=== PATIENT | male | born 1940 | race African-American/Black ===

== ENCOUNTER 2017-11-13 16:08 | Inpatient (IN) | payer MEDICARE ==
--- NOTE | 2017-11-13 16:50 | ED Physician Chart ---
ED Chief Complaint/HPI - Patient Information History of Present Illness:: Known psychiatric history, acute psychotic break at care facility, sent to ER for evaluation and treatment. Allergies:: Allergies Allergy/AdvReac Type Severity Reaction Status Date / Time No Known Allergies Allergy Verified 11/13/17 16:17 Historian:: EMS, Medical Records Review:: Nurse's Note Reviewed <Keo Greene - Last Filed: 11/14/17 20:40> - Patient Information Date Seen:: 11/13/17 Time Seen:: 16:50 Chief Complaint:: Agitation Allergies:: Allergies Allergy/AdvReac Type Severity Reaction Status Date / Time No Known Allergies Allergy Verified 11/13/17 16:17 Vitals:: Vital Signs - 8 hr 11/13/17 16:17 Temp 98.1 F HR 84 RR 19 BP 159/66 O2 Sat % 96 <Srinivas Boone - Last Filed: 11/14/17 22:20> ED Review of Systems - Review of Systems General/Constitutional: No edema Skin: No skin lesions Neck: No mass noted Cardio Vascular: No edema Pulmonary: No SOB GI: No vomiting Psychiatric: Prior psych history (aggressive behavior, nonverbal) Hematopoietic: Bruising, No bruising Allergic/Immuno: No urticaria <Keo Greene - Last Filed: 11/14/17 20:40> ED Past Medical History - Past Medical History Obtainable: No (History difficult to obtain, patient nonverbal at time of exam) Social History: Care Facility Psychiatricy History: Other (psyciatric illness with increased aggression, nonverbal at time of exam.) <Keo Greene - Last Filed: 11/14/17 20:40> Family Medical History - Family Member Mother History Unknown: Yes Ethnicity: Non- Living Status: Unknown Hx Family Cancer: (UNKNOWN) Hx Family Coronary Artery Disease: (UNKNOWN) Hx Family Congestive Heart Failure: (UNKNOWN) Hx Family Hypertension: (UNKNOWN) Hx Family Stroke: (UNKNOWN) Hx Family Diabetes: (UNKNOWN) Hx Family Seizures: (UNKNOWN) Hx Family Dementia: (UNKNOWN) Hx Family AIDS: (UNKNOWN) Hx Family HIV: No Hx Family COPD: (UNKNOWN) Hx Family Hepatitis: (UNKNOWN) Hx Family Psychiatric Problems: (UNKNOWN) Hx Family Tuberculosis: (UNKNOWN) <Srinivas Boone - Last Filed: 11/14/17 22:20> ED Physical Exam - Physical Examination General/Constitutional: Awake Head: Atraumatic Eyes: Lids, conjuctiva normal Skin: Nl inspection ENMT: External ears, nose nl Neck: Nontender Respiratory: Nl effort/Exclusion Cardio Vascular: RRR : No CVA tenderness Extremities: No tenderness or effusion Neuro/Psych: Alert/oriented Misc: Normal back <Keo Greene - Last Filed: 11/14/17 20:40> ED Labs/Radiology/EKG Results - Lab Results Results: Laboratory Tests 11/13/17 11/13/17 11/13/17 17:08 17:08 17:08 WBC 4.4 L RBC 4.12 Hgb 12.1 Hct 36.2 L MCV 88.1 MCH 29.5 MCHC Differential 33.4 RDW 18.7 Plt Count 272 MPV 7.1 Neutrophils % 43.3 Lymphocytes % 36.4 Monocytes % 10.9 H Eosinophils % 8.1 H Basophils % 1.3 PT INR PTT (Actin FS) Sodium 137 Potassium 3.5 Chloride 108 H Carbon Dioxide 24.0 Anion Gap 8.5 BUN 23 Creatinine 1.1 Est GFR ( Amer) TNP Est GFR (Non-Af Amer) TNP BUN/Creatinine Ratio 20.9 Glucose 98 Calcium 9.5 Total Bilirubin 0.6 AST 19 ALT 15 Alkaline Phosphatase 85 Troponin I 0.01 B-Natriuretic Peptide Total Protein 8.7 H Albumin 3.7 L Globulin 5.0 Albumin/Globulin Ratio 0.7 L 11/13/17 11/13/17 17:08 17:08 WBC RBC Hgb Hct MCV MCH MCHC Differential RDW Plt Count MPV Neutrophils % Lymphocytes % Monocytes % Eosinophils % Basophils % PT 11.1 INR 1.07 PTT (Actin FS) 25.0 L Sodium Potassium Chloride Carbon Dioxide Anion Gap BUN Creatinine Est GFR ( Amer) Est GFR (Non-Af Amer) BUN/Creatinine Ratio Glucose Calcium Total Bilirubin AST ALT Alkaline Phosphatase Troponin I B-Natriuretic Peptide 21.1 Total Protein Albumin Globulin Albumin/Globulin Ratio <Keo Greene - Last Filed: 11/14/17 20:40> - EKG Interpretations EKG Time:: 17:11 Rate & Rhythm: 82 bpm, sinus rhythm [place]: Left ventricular hypertropy Intervals: [place] 133, QRS 83 <Srinivas Boone - Last Filed: 07/28/18 22:20> ED Assessment - Assessment General Assessment: Psychotic break requiring inpatient adjustment of medication, monitoring and further treatment. <Keo Greene - Last Filed: 11/14/17 20:40> ED Septic Shock - . Is Septic Shock (SBP<90, OR Lactate>4 mmol\L) present?: No <Keo Greene - Last Filed: 11/14/17 20:40> - . Is Septic Shock (SBP<90, OR Lactate>4 mmol\L) present?: No - <6hrs of presentation: Vital Signs: Vital Signs - 8 hr 11/13/17 16:17 Temp 98.1 F HR 84 RR 19 BP 159/66 O2 Sat % 96 <Srinivas Boone - Last Filed: 11/14/17 22:20> ED Reassessment (Disposition) - Reassessment Reassessment:: Adjustment of medication needed. Reassessment Condition:: Unchanged - Diagnosis Diagnosis:: Acute psychotic break. - Patient Disposition Discharge/Transfer:: Acute Care w/in this hosp <Keo Greene - Last Filed: 11/14/17 20:40> - Patient Disposition Admitting Medical Physician:: Casey Callejas Admitting Psych Physician:: Dolly Gamez <Srinivas Boone - Last Filed: 11/14/17 22:20>
[2017-11-13 17:19] LABS: % BASOPHILS 1.3 % (0.0-2.0); % EOSINOPHILS 8.1 % (0.0-5.0); % LYMPHOCYTES 36.4 % (20.0-50.0); % MONOCYTES 10.9 % (2.0-10.0); % NEUTROPHILS 43.3 % (40.0-80.0); BASOPHILE ABSOLUTE 0.1 Th/cumm (0-0.2); EOSINOPHILE ABSOLUTE 0.4 Th/cmm (0.1-0.4); HEMATOCRIT 36.2 % (41.0-60); HEMOGLOBIN 12.1 gm/dL (12-16); LYMPHOCYTE ABSOLUTE 1.6 Th/cmm (1.5-3.0); MEAN CELL VOLUME 88.1 fl (80-99); MEAN CORPUSCULAR HEMOGLOBIN 29.5 pg (27.0-31.0); MEAN CORPUSCULAR HGB CONC 33.4 pg (28.0-36.0); MEAN PLATELET VOLUME 7.1 fl; MONOCYTE ABSOLUTE 0.5 Th/cmm (0.3-1.0); NEUTROPHILE ABSOLUTE 1.8 Th/cmm (1.8-8.0); PLATELET COUNT 272 Th/cmm (150-400); RED BLOOD COUNT 4.12 Mil/cmm (3.80-5.80); RED CELL DISTRIBUTION WIDTH 18.7 % (11.5-20.0); WHITE BLOOD COUNT 4.4 Th/cmm (4.8-10.8)
[2017-11-13 17:31] LABS: INR 1.07 (0.5-1.4); PROTHROMBIN TIME (TEST) 11.1 SECONDS (9.5-11.5)
[2017-11-13 17:33] LABS: ALB/GLOB RATIO 0.7 (1.0-1.8); ALBUMIN 3.7 gm/dL (4.2-5.5); ALKALINE PHOSPHATASE 85 U/L (34-104); ANION GAP 8.5 (7.0-16.0); BILIRUBIN,TOTAL 0.6 mg/dL (0.3-1.0); BUN - UREA NITROGEN 23 mg/dL (7-25); CALCIUM SERUM 9.5 mg/dL (8.6-10.3); CHLORIDE 108 mEq/L (98-107); CREATININE - SERUM 1.1 mg/dL (0.7-1.3); GLUCOSE 98 mg/dL (70-105); POTASSIUM SERUM 3.5 mEq/L (3.5-5.1); SGOT 19 U/L (13-39); SGPT/ALT 15 U/L (7-52); SODIUM SERUM 137 mEq/L (136-145); TOTAL PROTEIN,SERUM 8.7 gm/dL (6.0-8.3)
[2017-11-13 22:39] VITALS: BP 146/91
[2017-11-13] MEDS ORDERED: Magnesium Hydroxide (MOM) 30 mL UDC PO PRN ×2 (22:52→22:53)
[2017-11-13] MEDS ORDERED: Maalox 30 mL Cup PO PRN (22:52)
[2017-11-13] MEDS ORDERED: Acetaminophen 500 MG TAB PO PRN (22:53)
[2017-11-14] MEDS ORDERED: Non-Formulary Item 1 EA (Cranberry Fruit Extract [Cranberry] 425 MG) PO SCH (09:00)
--- NOTE | 2017-11-14 09:26 | Diagnostic Imaging Report ---
Portable chest x-ray HISTORY: Shortness of breath The overall heart size normal. Atherosclerotic calcification seen in the aorta. Slight elevation the right hemidiaphragm. A linear density is noted in the right lower lung consistent with probable scarring. IMPRESSION: 1. Linear density within the right lower lobe probably related to scarring. No other focal processes.
[2017-11-14] MEDS: Multivitamin Tab PO SCH (09:35)
[2017-11-14] MEDS: Multivitamin w/ Minerals Tab PO SCH (09:36)
[2017-11-14] MEDS: Vitamin D3 2,000 IU SGL PO SCH (09:36)
--- NOTE | 2017-11-14 14:37 | History & Physical ---
ADMIT DATE: 11/13/2017 IDENTIFYING INFORMATION: The patient is a 77-year-old male. CHIEF COMPLAINT: No answer. HISTORY OF PRESENT ILLNESS: The patient apparently was sent because of aggressive, assaultive behavior, anxiety, irritable, throwing things. He came to the [facility]. The patient himself was a poor historian. He was rambling, unable to participate in meaningful conversation or make safe plan for self-care. Unable to participate and tell me the reason why he is here, unable to tell me his age, where he is here. When asked about suicide, homicide, did not know how to answer the questions. He is unpredictable and impulsive. He seems to be demented and confused. PAST PSYCHIATRIC HISTORY: What seemed to be dementia, psychosis. MEDICAL HISTORY: Deferred to the medical doctor. ALLERGIES: No known drug allergies. FAMILY AND SOCIAL HISTORY: The patient is unobtainable. The patient lives in a nursing facility. MENTAL STATUS EXAMINATION: The patient is appropriately dressed, not very groomed. The patient was rambling and mumbling to himself, unable to participate in meaningful conversation or make safe plan for self-care, unpredictable, impulsive, was acting aggressive, irritable at the [facility] that he was, unable to make safe plan for self-care or participate in meaningful conversation long and short term poor. Insight and judgment is impaired. When answer questions regarding suicide, homicide, does not know how to answer any questions at this point because of his dementia. Insight and judgment impaired. IMPRESSION: AXIS I: Psychosis, not otherwise specified, dementia. MEDICAL DIAGNOSIS: Deferred to the medical doctor. His asset is accepting treatment. Negative poor coping skills. INITIAL TREATMENT PLAN: The patient will be observed, we will try to start him on medication for dementia. We will do group therapy, milieu therapy. ESTIMATED LENGTH OF STAY: 5-7 days. DISCHARGE CRITERIA: Decreasing agitation, no longer threatening. After discharge, outpatient treatment. JOB# [id number]
--- NOTE | 2017-11-14 15:52 | History & Physical ---
ADMIT DATE: 11/14/2017 CHIEF COMPLAINT: Agitation. HISTORY OF PRESENT ILLNESS: This is a 77-year-old male who was brought into the Emergency Room from senior living facility due to increased agitation and confusion. REVIEW OF SYSTEMS: GENERAL: This is a 77-year-old male that appears as stated. No weight loss. No weakness. HEAD: No dizziness. No headache. EYES: No eye pain, no blurring of vision. NECK: No neck pain, no nuchal rigidity. CHEST: No chest pain, no palpitation. PULMONARY: No coughing, no shortness of breath. GASTROINTESTINAL: No abdominal pain. No diarrhea. No constipation. MUSCULOSKELETAL: No joint pain, no muscle pain. SOCIAL HISTORY: The patient lives in a senior living facility prior to hospitalization. The patient has a long history of nicotine dependence. FAMILY HISTORY: Unremarkable. PAST SURGICAL HISTORY: Unremarkable. PSYCHIATRIC HISTORY: Includes psychosis. PAST MEDICAL HISTORY: Osteoarthritis, vitamin D deficiency, benign prostatic hypertrophy, osteoarthritis. PHYSICAL EXAMINATION: VITAL SIGNS: Temperature 98, heart rate 76, blood pressure 137/60, respirations 20, 98% on room air. HEENT: Head is atraumatic, normocephalic. Eyes, bilateral conjunctivae are clear. Bilateral pupils equally round and reactive. NECK: Supple. No JVD. CARDIOVASCULAR: S1 and S2, without murmur. LUNGS: Clear to auscultation. GASTROINTESTINAL: Soft and nontender without guarding. Positive bowel sounds. MUSCULOSKELETAL: No clubbing. No cyanosis noted. DIAGNOSTIC DATA: Chest x-ray showed linear density within the right lower lobe, probably to scarring. ASSESSMENT: 1. Psychosis. 2. Rule out dementia. 3. Benign prostatic hypertrophy. 4. Osteoarthritis. 5. Vitamin D deficiency. 6. History of nicotine dependence. PLAN: We will admit the patient to senior mental health unit. We will do medication reconciliation accordingly. Treatment plans were discussed with the patient's nurse. Treatment plans were discussed with Dr. Callejas. JOB# [id number]
[2017-11-15] MEDS: Multivitamin w/ Minerals Tab PO SCH (08:39)
[2017-11-15] MEDS: Multivitamin Tab PO SCH (08:39)
[2017-11-15] MEDS: Vitamin D3 2,000 IU SGL PO SCH (08:39)
--- NOTE | 2017-11-15 11:20 | General Progress Note ---
Subjective - Review of Systems Events since last encounter: patient admitted with increase agitation and confusion Objective - Results Result Diagrams: 11/13/17 17:08 11/13/17 17:08 Recent Labs: Laboratory Last Values WBC 4.4 Th/cmm (4.8-10.8) L 11/13/17 17:08 RBC 4.12 Mil/cmm (3.80-5.80) 11/13/17 17:08 Hgb 12.1 gm/dL (12-16) 11/13/17 17:08 Hct 36.2 % (41.0-60) L 11/13/17 17:08 MCV 88.1 fl (80-99) 11/13/17 17:08 MCH 29.5 pg (27.0-31.0) 11/13/17 17:08 MCHC Differential 33.4 pg (28.0-36.0) 11/13/17 17:08 RDW 18.7 % (11.5-20.0) 11/13/17 17:08 Plt Count 272 Th/cmm (150-400) 11/13/17 17:08 MPV 7.1 fl 11/13/17 17:08 Neutrophils % 43.3 % (40.0-80.0) 11/13/17 17:08 Lymphocytes % 36.4 % (20.0-50.0) 11/13/17 17:08 Monocytes % 10.9 % (2.0-10.0) H 11/13/17 17:08 Eosinophils % 8.1 % (0.0-5.0) H 11/13/17 17:08 Basophils % 1.3 % (0.0-2.0) 11/13/17 17:08 PT 11.1 SECONDS (9.5-11.5) 11/13/17 17:08 INR 1.07 (0.5-1.4) 11/13/17 17:08 PTT (Actin FS) 25.0 SECONDS (26.0-38.0) L 11/13/17 17:08 Sodium 137 mEq/L (136-145) 11/13/17 17:08 Potassium 3.5 mEq/L (3.5-5.1) 11/13/17 17:08 Chloride 108 mEq/L (98-107) H 11/13/17 17:08 Carbon Dioxide 24.0 mEq/L (21.0-31.0) 11/13/17 17:08 Anion Gap 8.5 (7.0-16.0) 11/13/17 17:08 BUN 23 mg/dL (7-25) 11/13/17 17:08 Creatinine 1.1 mg/dL (0.7-1.3) 11/13/17 17:08 Est GFR ( Amer) TNP 11/13/17 17:08 Est GFR (Non-Af Amer) TNP 11/13/17 17:08 BUN/Creatinine Ratio 20.9 11/13/17 17:08 Glucose 98 mg/dL (70-105) 11/13/17 17:08 Calcium 9.5 mg/dL (8.6-10.3) 11/13/17 17:08 Total Bilirubin 0.6 mg/dL (0.3-1.0) 11/13/17 17:08 AST 19 U/L (13-39) 11/13/17 17:08 ALT 15 U/L (7-52) 11/13/17 17:08 Alkaline Phosphatase 85 U/L (34-104) 11/13/17 17:08 Troponin I 0.01 ng/mL (0.01-0.05) 11/13/17 17:08 B-Natriuretic Peptide 21.1 pg/mL (5.0-100.0) 11/13/17 17:08 Total Protein 8.7 gm/dL (6.0-8.3) H 11/13/17 17:08 Albumin 3.7 gm/dL (4.2-5.5) L 11/13/17 17:08 Globulin 5.0 gm/dL 11/13/17 17:08 Albumin/Globulin Ratio 0.7 (1.0-1.8) L 11/13/17 17:08 - Physical Exam Vitals and I&O: Vital Signs Temp 97.5 F 11/15/17 04:49 Pulse 71 11/15/17 04:49 Resp 19 11/15/17 04:49 BP 117/72 11/15/17 04:49 Pulse Ox 97 11/15/17 04:49 Intake & Output 11/14/17 11/15/17 11/15/17 18:59 06:59 18:59 Intake Total 240 Balance 240 Weight (lbs) 65.771 kg Intake: Oral 240 Other: # Voids 2 Weight Source Standing scale Active Medications: Current Medications Acetaminophen (Tylenol) 650 mg PO Q4HR PRN PRN Reason: Mild Pain / Temp above 100 Stop: 01/12/18 22:51 Acetaminophen (Tylenol) 325 mg PO Q4HR PRN PRN Reason: PAIN OR TEMP >101 Stop: 01/12/18 22:52 Acetaminophen (Tylenol Extra Strength) 1,000 mg PO Q4HR PRN PRN Reason: MODERATE PAIN Stop: 01/12/18 22:52 Al Hydrox/Mg Hydrox/Simethicone (Maalox) 30 ml PO Q4HR PRN PRN Reason: GI DISTRESS Stop: 01/12/18 22:51 Docusate Sodium (Colace) 100 mg PO BID [facility] Stop: 01/13/18 08:59 Last Admin: 11/15/17 08:39 Dose: 100 mg Donepezil HCl (Aricept) 5 mg PO HS HELENE Stop: 01/13/18 20:59 Last Admin: 11/14/17 20:59 Dose: 5 mg Finasteride (Proscar) 5 mg PO DAILY HELENE; Protocol Stop: 01/13/18 08:59 Last Admin: 11/15/17 08:39 Dose: 5 mg Ibuprofen (Motrin) 600 mg PO Q6H PRN PRN Reason: MODERATE PAIN Stop: 01/12/18 22:52 Lorazepam (Ativan) 0.5 mg PO Q4HR PRN; Protocol PRN Reason: Anxiety Stop: 12/13/17 22:47 Last Admin: 11/14/17 20:58 Dose: 0.5 mg Magnesium Hydroxide (Milk Of Magnesia) 30 ml PO HS PRN PRN Reason: Constipation Stop: 01/12/18 22:52 Multivitamins/Vitamin C (Theragran) 1 tab PO DAILY HELENE Stop: 01/13/18 08:59 Last Admin: 11/15/17 08:39 Dose: 1 tab Tamsulosin HCl (Flomax) 0.4 mg PO DAILY HELENE Stop: 01/13/18 08:59 Last Admin: 11/15/17 08:39 Dose: 0.4 mg Vitamin D (Vitamin D3) 4,000 iu PO DAILY HELENE Stop: 01/13/18 08:59 Last Admin: 11/15/17 08:39 Dose: 4,000 iu Zolpidem Tartrate (Ambien) 5 mg PO HS PRN PRN Reason: Insomnia Stop: 01/12/18 22:59 General: Alert, no Oriented x3 HEENT: Atraumatic Neck: Supple Cardiovascular: Regular rate, Normal S1, Normal S2 Lungs: Clear to auscultation Abdomen: Bowel sounds Assessment/Plan - Problem List Patient Problems: All Active Problems BPH (benign prostatic hyperplasia) (Acute) N40.0 INCREASED AGGRESSIVE BEHAVIOR (Acute) Osteoarthritis (Acute) M19.90 Psychosis (Acute) F29 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
--- NOTE | 2017-11-15 21:38 | Progress Notes ---
DATE: 11/15/2017 Case was discussed with staff of the patient, reviewed records. The patient continues to be confused, irritable, rambling speech, unable to participate in meaningful conversation or make safe plan for self-care. I initiated him on Aricept yesterday. He is unpredictable, impulsive and he has been with very poor insight. No side effects with the medication, no sedation, and no nausea. His lab work showed low white cell count, low hematocrit, high monocyte, and high eosinophil, the rest within normal range. His chemistry panel with high chloride, high total protein, and low albumin. We will continue the patient in group therapy, milieu therapy, and adjust the medication as needed. JOB# [id number]
[2017-11-16] MEDS: Vitamin D3 2,000 IU SGL PO SCH (09:11)
[2017-11-16] MEDS: Multivitamin w/ Minerals Tab PO SCH (09:13)
[2017-11-16] MEDS: Multivitamin Tab PO SCH (09:13)
[2017-11-17] MEDS: Multivitamin w/ Minerals Tab PO SCH (08:47)
[2017-11-17] MEDS: Multivitamin Tab PO SCH (08:47)
[2017-11-17] MEDS: Vitamin D3 2,000 IU SGL PO SCH (08:47)
--- NOTE | 2017-11-17 12:53 | Internal Medicine Prog Note ---
Internal Medicine Subjective - Subjective Service Date: 11/17/17 Patient seen and examined:: with staff Patient is:: awake, verbal Per staff patient has:: tolerating meds Internal Medicine Objective - Results Result Diagrams: 11/13/17 17:08 11/13/17 17:08 Recent Labs: Laboratory Last Values WBC 4.4 Th/cmm (4.8-10.8) L 11/13/17 17:08 RBC 4.12 Mil/cmm (3.80-5.80) 11/13/17 17:08 Hgb 12.1 gm/dL (12-16) 11/13/17 17:08 Hct 36.2 % (41.0-60) L 11/13/17 17:08 MCV 88.1 fl (80-99) 11/13/17 17:08 MCH 29.5 pg (27.0-31.0) 11/13/17 17:08 MCHC Differential 33.4 pg (28.0-36.0) 11/13/17 17:08 RDW 18.7 % (11.5-20.0) 11/13/17 17:08 Plt Count 272 Th/cmm (150-400) 11/13/17 17:08 MPV 7.1 fl 11/13/17 17:08 Neutrophils % 43.3 % (40.0-80.0) 11/13/17 17:08 Lymphocytes % 36.4 % (20.0-50.0) 11/13/17 17:08 Monocytes % 10.9 % (2.0-10.0) H 11/13/17 17:08 Eosinophils % 8.1 % (0.0-5.0) H 11/13/17 17:08 Basophils % 1.3 % (0.0-2.0) 11/13/17 17:08 PT 11.1 SECONDS (9.5-11.5) 11/13/17 17:08 INR 1.07 (0.5-1.4) 11/13/17 17:08 PTT (Actin FS) 25.0 SECONDS (26.0-38.0) L 11/13/17 17:08 Sodium 137 mEq/L (136-145) 11/13/17 17:08 Potassium 3.5 mEq/L (3.5-5.1) 11/13/17 17:08 Chloride 108 mEq/L (98-107) H 11/13/17 17:08 Carbon Dioxide 24.0 mEq/L (21.0-31.0) 11/13/17 17:08 Anion Gap 8.5 (7.0-16.0) 11/13/17 17:08 BUN 23 mg/dL (7-25) 11/13/17 17:08 Creatinine 1.1 mg/dL (0.7-1.3) 11/13/17 17:08 Est GFR ( Amer) TNP 11/13/17 17:08 Est GFR (Non-Af Amer) TNP 11/13/17 17:08 BUN/Creatinine Ratio 20.9 11/13/17 17:08 Glucose 98 mg/dL (70-105) 11/13/17 17:08 POC Glucose 112 MG/DL (70 - 105) H 11/16/17 23:52 Calcium 9.5 mg/dL (8.6-10.3) 11/13/17 17:08 Total Bilirubin 0.6 mg/dL (0.3-1.0) 11/13/17 17:08 AST 19 U/L (13-39) 11/13/17 17:08 ALT 15 U/L (7-52) 11/13/17 17:08 Alkaline Phosphatase 85 U/L (34-104) 11/13/17 17:08 Troponin I 0.01 ng/mL (0.01-0.05) 11/13/17 17:08 B-Natriuretic Peptide 21.1 pg/mL (5.0-100.0) 11/13/17 17:08 Total Protein 8.7 gm/dL (6.0-8.3) H 11/13/17 17:08 Albumin 3.7 gm/dL (4.2-5.5) L 11/13/17 17:08 Globulin 5.0 gm/dL 11/13/17 17:08 Albumin/Globulin Ratio 0.7 (1.0-1.8) L 11/13/17 17:08 - Physical Exam Vitals and I&O: Vital Signs Temp 97.4 F 11/17/17 05:50 Pulse 65 11/17/17 05:50 Resp 20 11/17/17 05:50 BP 116/68 11/17/17 05:50 Pulse Ox 100 11/17/17 05:50 Active Medications: Current Medications Acetaminophen (Tylenol) 650 mg PO Q4HR PRN PRN Reason: Mild Pain / Temp above 100 Stop: 01/12/18 22:51 Acetaminophen (Tylenol) 325 mg PO Q4HR PRN PRN Reason: PAIN OR TEMP >101 Stop: 01/12/18 22:52 Acetaminophen (Tylenol Extra Strength) 1,000 mg PO Q4HR PRN PRN Reason: MODERATE PAIN Stop: 01/12/18 22:52 Al Hydrox/Mg Hydrox/Simethicone (Maalox) 30 ml PO Q4HR PRN PRN Reason: GI DISTRESS Stop: 01/12/18 22:51 Docusate Sodium (Colace) 100 mg PO BID HELENE Stop: 01/13/18 08:59 Last Admin: 11/17/17 08:47 Dose: 100 mg Donepezil HCl (Aricept) 5 mg PO HS HELENE Stop: 01/13/18 20:59 Last Admin: 11/16/17 21:02 Dose: 5 mg Finasteride (Proscar) 5 mg PO DAILY HELENE; Protocol Stop: 01/13/18 08:59 Last Admin: 11/17/17 08:47 Dose: 5 mg Ibuprofen (Motrin) 600 mg PO Q6H PRN PRN Reason: MODERATE PAIN Stop: 01/12/18 22:52 Lorazepam (Ativan) 0.5 mg PO Q4HR PRN; Protocol PRN Reason: Anxiety Stop: 12/13/17 22:47 Last Admin: 11/16/17 20:57 Dose: 0.5 mg Magnesium Hydroxide (Milk Of Magnesia) 30 ml PO HS PRN PRN Reason: Constipation Stop: 01/12/18 22:52 Multivitamins/Vitamin C (Theragran) 1 tab PO DAILY HELENE Stop: 01/13/18 08:59 Last Admin: 11/17/17 08:47 Dose: 1 tab Risperidone (Risperdal) 0.25 mg PO HS HELENE; Protocol Stop: 01/15/18 20:59 Last Admin: 11/16/17 20:56 Dose: 0.25 mg Tamsulosin HCl (Flomax) 0.4 mg PO DAILY HELENE Stop: 01/13/18 08:59 Last Admin: 11/17/17 08:47 Dose: 0.4 mg Vitamin D (Vitamin D3) 4,000 iu PO DAILY HELENE Stop: 01/13/18 08:59 Last Admin: 11/17/17 08:47 Dose: 4,000 iu Zolpidem Tartrate (Ambien) 5 mg PO HS PRN PRN Reason: Insomnia Stop: 01/12/18 22:59 Last Admin: 11/16/17 20:57 Dose: 5 mg General: alert HEENT: NC/AT, PERRLA Neck: Supple Lungs: CTAB Cardiovascular: RRR, Normal S1, Normal S2, without murmur Abdomen: soft, non-tender, non-distended, positive bowel sound Neurological: alert Internal Medicine Assmt/Plan - Assessment Assessment: BPH (benign prostatic hyperplasia) (Acute) N40.0 INCREASED AGGRESSIVE BEHAVIOR (Acute) Osteoarthritis (Acute) M19.90 Psychosis (Acute) F29 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
--- NOTE | 2017-11-18 00:04 | Progress Notes ---
DATE: 11/17/2017 SUBJECTIVE: Chart reviewed and the patient interviewed. Also discussed the patient's condition with the staff and reviewed records and labs. The patient remains confused and disoriented. The patient also is still preoccupied. The patient also is easily agitated. He also still has periods of anger and mood swings. Otherwise, the patient compliant with taking medications with no side effects. ASSESSMENT: The patient is still agitated and needs close followup. ADDENDUM TREATMENT PLAN: We will continue monitoring his behavior and his condition closely. Also, blood pressure dropped and continue to monitor blood pressure and continue to ____ poor impulse and ineffective coping. JOB# [id number]
[2017-11-18] MEDS: Vitamin D3 2,000 IU SGL PO SCH (09:12)
[2017-11-18] MEDS: Multivitamin Tab PO SCH (09:12)
[2017-11-18] MEDS: Multivitamin w/ Minerals Tab PO SCH (09:13)
--- NOTE | 2017-11-18 11:58 | General Progress Note ---
Subjective - Review of Systems Events since last encounter: patient still irritable confused denies pain Objective - Results Result Diagrams: 11/13/17 17:08 11/13/17 17:08 Recent Labs: Laboratory Last Values WBC 4.4 Th/cmm (4.8-10.8) L 11/13/17 17:08 RBC 4.12 Mil/cmm (3.80-5.80) 11/13/17 17:08 Hgb 12.1 gm/dL (12-16) 11/13/17 17:08 Hct 36.2 % (41.0-60) L 11/13/17 17:08 MCV 88.1 fl (80-99) 11/13/17 17:08 MCH 29.5 pg (27.0-31.0) 11/13/17 17:08 MCHC Differential 33.4 pg (28.0-36.0) 11/13/17 17:08 RDW 18.7 % (11.5-20.0) 11/13/17 17:08 Plt Count 272 Th/cmm (150-400) 11/13/17 17:08 MPV 7.1 fl 11/13/17 17:08 Neutrophils % 43.3 % (40.0-80.0) 11/13/17 17:08 Lymphocytes % 36.4 % (20.0-50.0) 11/13/17 17:08 Monocytes % 10.9 % (2.0-10.0) H 11/13/17 17:08 Eosinophils % 8.1 % (0.0-5.0) H 11/13/17 17:08 Basophils % 1.3 % (0.0-2.0) 11/13/17 17:08 PT 11.1 SECONDS (9.5-11.5) 11/13/17 17:08 INR 1.07 (0.5-1.4) 11/13/17 17:08 PTT (Actin FS) 25.0 SECONDS (26.0-38.0) L 11/13/17 17:08 Sodium 137 mEq/L (136-145) 11/13/17 17:08 Potassium 3.5 mEq/L (3.5-5.1) 11/13/17 17:08 Chloride 108 mEq/L (98-107) H 11/13/17 17:08 Carbon Dioxide 24.0 mEq/L (21.0-31.0) 11/13/17 17:08 Anion Gap 8.5 (7.0-16.0) 11/13/17 17:08 BUN 23 mg/dL (7-25) 11/13/17 17:08 Creatinine 1.1 mg/dL (0.7-1.3) 11/13/17 17:08 Est GFR ( Amer) TNP 11/13/17 17:08 Est GFR (Non-Af Amer) TNP 11/13/17 17:08 BUN/Creatinine Ratio 20.9 11/13/17 17:08 Glucose 98 mg/dL (70-105) 11/13/17 17:08 POC Glucose 112 MG/DL (70 - 105) H 11/16/17 23:52 Calcium 9.5 mg/dL (8.6-10.3) 11/13/17 17:08 Total Bilirubin 0.6 mg/dL (0.3-1.0) 11/13/17 17:08 AST 19 U/L (13-39) 11/13/17 17:08 ALT 15 U/L (7-52) 11/13/17 17:08 Alkaline Phosphatase 85 U/L (34-104) 11/13/17 17:08 Troponin I 0.01 ng/mL (0.01-0.05) 11/13/17 17:08 B-Natriuretic Peptide 21.1 pg/mL (5.0-100.0) 11/13/17 17:08 Total Protein 8.7 gm/dL (6.0-8.3) H 11/13/17 17:08 Albumin 3.7 gm/dL (4.2-5.5) L 11/13/17 17:08 Globulin 5.0 gm/dL 11/13/17 17:08 Albumin/Globulin Ratio 0.7 (1.0-1.8) L 11/13/17 17:08 - Physical Exam Vitals and I&O: Vital Signs Temp 97.5 F 11/18/17 07:48 Pulse 84 11/18/17 07:48 Resp 20 11/18/17 07:48 BP 125/79 11/18/17 07:48 Pulse Ox 100 11/18/17 07:48 Intake & Output 11/17/17 11/18/17 11/18/17 18:59 06:59 18:59 Weight (lbs) 65.771 kg Other: Weight Source Estimated Active Medications: Current Medications Acetaminophen (Tylenol) 650 mg PO Q4HR PRN PRN Reason: Mild Pain / Temp above 100 Stop: 01/12/18 22:51 Acetaminophen (Tylenol) 325 mg PO Q4HR PRN PRN Reason: PAIN OR TEMP >101 Stop: 01/12/18 22:52 Acetaminophen (Tylenol Extra Strength) 1,000 mg PO Q4HR PRN PRN Reason: MODERATE PAIN Stop: 01/12/18 22:52 Al Hydrox/Mg Hydrox/Simethicone (Maalox) 30 ml PO Q4HR PRN PRN Reason: GI DISTRESS Stop: 01/12/18 22:51 Docusate Sodium (Colace) 100 mg PO BID HELENE Stop: 01/13/18 08:59 Last Admin: 11/18/17 09:13 Dose: 100 mg Donepezil HCl (Aricept) 5 mg PO HS HELENE Stop: 01/13/18 20:59 Last Admin: 11/17/17 21:39 Dose: 5 mg Finasteride (Proscar) 5 mg PO DAILY HELENE; Protocol Stop: 01/13/18 08:59 Last Admin: 11/18/17 09:13 Dose: 5 mg Ibuprofen (Motrin) 600 mg PO Q6H PRN PRN Reason: MODERATE PAIN Stop: 01/12/18 22:52 Lorazepam (Ativan) 0.5 mg PO Q4HR PRN; Protocol PRN Reason: Anxiety Stop: 12/13/17 22:47 Last Admin: 11/16/17 20:57 Dose: 0.5 mg Magnesium Hydroxide (Milk Of Magnesia) 30 ml PO HS PRN PRN Reason: Constipation Stop: 01/12/18 22:52 Multivitamins/Vitamin C (Theragran) 1 tab PO DAILY [facility]ENE Stop: 01/13/18 08:59 Last Admin: 11/18/17 09:12 Dose: 1 tab Risperidone (Risperdal) 0.25 mg PO HS HELENE; Protocol Stop: 01/15/18 20:59 Last Admin: 11/17/17 21:39 Dose: 0.25 mg Tamsulosin HCl (Flomax) 0.4 mg PO DAILY [facility] Stop: 01/13/18 08:59 Last Admin: 11/18/17 09:12 Dose: 0.4 mg Vitamin D (Vitamin D3) 4,000 iu PO DAILY [facility]ENE Stop: 01/13/18 08:59 Last Admin: 11/18/17 09:12 Dose: 4,000 iu Zolpidem Tartrate (Ambien) 5 mg PO HS PRN PRN Reason: Insomnia Stop: 01/12/18 22:59 Last Admin: 11/16/17 20:57 Dose: 5 mg General: Alert, no Oriented x3 HEENT: Atraumatic Neck: Supple Cardiovascular: Regular rate, Normal S1, Normal S2 Lungs: Clear to auscultation Abdomen: Bowel sounds Assessment/Plan - Problem List Patient Problems: All Active Problems BPH (benign prostatic hyperplasia) (Acute) N40.0 INCREASED AGGRESSIVE BEHAVIOR (Acute) Osteoarthritis (Acute) M19.90 Psychosis (Acute) F29 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
--- NOTE | 2017-11-18 22:25 | Progress Notes ---
DATE: 11/16/2017 SUBJECTIVE: Chart reviewed and the patient interviewed. Also discussed the patient's condition with the staff and reviewed records and labs. The patient still seems to be preoccupied and is still easily agitated and confused. He also is still delusional. The patient also is complaining of left-sided weakness. He said that he has difficulty getting out of bed, but he is also trying to get off bed with no assistance. The patient also is still confused and needs a lot of assistance. On the other hand, the patient continued to take Ativan and Aricept with no side effects. ASSESSMENT: The patient is still confused and still needs lots of redirections. TREATMENT PLAN: Continue to monitor behavior and condition closely. Also, continue adjusting psychotropic medications and follow up closely. JOB# [id number]
[2017-11-19] MEDS: Multivitamin Tab PO SCH (09:42)
[2017-11-19] MEDS: Vitamin D3 2,000 IU SGL PO SCH (09:42)
[2017-11-19] MEDS: Multivitamin w/ Minerals Tab PO SCH (09:42)
[2017-11-20] MEDS: Vitamin D3 2,000 IU SGL PO SCH (10:10)
[2017-11-20] MEDS: Multivitamin Tab PO SCH (10:11)
[2017-11-20] MEDS: Multivitamin w/ Minerals Tab PO SCH (10:11)
--- NOTE | 2017-11-20 11:14 | Internal Medicine Prog Note ---
Internal Medicine Subjective - Subjective Service Date: 11/20/17 Patient is:: awake, verbal Per staff patient has:: tolerating meds Internal Medicine Objective - Results Result Diagrams: 11/13/17 17:08 11/13/17 17:08 Recent Labs: Laboratory Last Values WBC 4.4 Th/cmm (4.8-10.8) L 11/13/17 17:08 RBC 4.12 Mil/cmm (3.80-5.80) 11/13/17 17:08 Hgb 12.1 gm/dL (12-16) 11/13/17 17:08 Hct 36.2 % (41.0-60) L 11/13/17 17:08 MCV 88.1 fl (80-99) 11/13/17 17:08 MCH 29.5 pg (27.0-31.0) 11/13/17 17:08 MCHC Differential 33.4 pg (28.0-36.0) 11/13/17 17:08 RDW 18.7 % (11.5-20.0) 11/13/17 17:08 Plt Count 272 Th/cmm (150-400) 11/13/17 17:08 MPV 7.1 fl 11/13/17 17:08 Neutrophils % 43.3 % (40.0-80.0) 11/13/17 17:08 Lymphocytes % 36.4 % (20.0-50.0) 11/13/17 17:08 Monocytes % 10.9 % (2.0-10.0) H 11/13/17 17:08 Eosinophils % 8.1 % (0.0-5.0) H 11/13/17 17:08 Basophils % 1.3 % (0.0-2.0) 11/13/17 17:08 PT 11.1 SECONDS (9.5-11.5) 11/13/17 17:08 INR 1.07 (0.5-1.4) 11/13/17 17:08 PTT (Actin FS) 25.0 SECONDS (26.0-38.0) L 11/13/17 17:08 Sodium 137 mEq/L (136-145) 11/13/17 17:08 Potassium 3.5 mEq/L (3.5-5.1) 11/13/17 17:08 Chloride 108 mEq/L (98-107) H 11/13/17 17:08 Carbon Dioxide 24.0 mEq/L (21.0-31.0) 11/13/17 17:08 Anion Gap 8.5 (7.0-16.0) 11/13/17 17:08 BUN 23 mg/dL (7-25) 11/13/17 17:08 Creatinine 1.1 mg/dL (0.7-1.3) 11/13/17 17:08 Est GFR ( Amer) TNP 11/13/17 17:08 Est GFR (Non-Af Amer) TNP 11/13/17 17:08 BUN/Creatinine Ratio 20.9 11/13/17 17:08 Glucose 98 mg/dL (70-105) 11/13/17 17:08 POC Glucose 112 MG/DL (70 - 105) H 11/16/17 23:52 Calcium 9.5 mg/dL (8.6-10.3) 11/13/17 17:08 Total Bilirubin 0.6 mg/dL (0.3-1.0) 11/13/17 17:08 AST 19 U/L (13-39) 11/13/17 17:08 ALT 15 U/L (7-52) 11/13/17 17:08 Alkaline Phosphatase 85 U/L (34-104) 11/13/17 17:08 Troponin I 0.01 ng/mL (0.01-0.05) 11/13/17 17:08 B-Natriuretic Peptide 21.1 pg/mL (5.0-100.0) 11/13/17 17:08 Total Protein 8.7 gm/dL (6.0-8.3) H 11/13/17 17:08 Albumin 3.7 gm/dL (4.2-5.5) L 11/13/17 17:08 Globulin 5.0 gm/dL 11/13/17 17:08 Albumin/Globulin Ratio 0.7 (1.0-1.8) L 11/13/17 17:08 - Physical Exam Vitals and I&O: Vital Signs Temp 97.2 F 11/20/17 06:51 Pulse 74 11/20/17 06:51 Resp 19 11/20/17 06:51 BP 116/78 11/20/17 06:51 Pulse Ox 100 11/20/17 06:51 Intake & Output 11/19/17 11/20/17 11/20/17 18:59 06:59 18:59 Intake Total 1350 Balance 1350 Weight (lbs) 144 lb 155 lb Intake: Oral 1350 Other: # Voids 3 # Bowel Movements 0 Weight Source Estimated Estimated Active Medications: Current Medications Acetaminophen (Tylenol) 650 mg PO Q4HR PRN PRN Reason: Mild Pain / Temp above 100 Stop: 01/12/18 22:51 Acetaminophen (Tylenol) 325 mg PO Q4HR PRN PRN Reason: PAIN OR TEMP >101 Stop: 01/12/18 22:52 Acetaminophen (Tylenol Extra Strength) 1,000 mg PO Q4HR PRN PRN Reason: MODERATE PAIN Stop: 01/12/18 22:52 Al Hydrox/Mg Hydrox/Simethicone (Maalox) 30 ml PO Q4HR PRN PRN Reason: GI DISTRESS Stop: 01/12/18 22:51 Docusate Sodium (Colace) 100 mg PO BID HELENE Stop: 01/13/18 08:59 Last Admin: 11/20/17 10:11 Dose: 100 mg Donepezil HCl (Aricept) 5 mg PO HS HELENE Stop: 01/13/18 20:59 Last Admin: 11/19/17 21:15 Dose: 5 mg Finasteride (Proscar) 5 mg PO DAILY [facility]; Protocol Stop: 01/13/18 08:59 Last Admin: 11/20/17 10:04 Dose: 5 mg Ibuprofen (Motrin) 600 mg PO Q6H PRN PRN Reason: MODERATE PAIN Stop: 01/12/18 22:52 Lorazepam (Ativan) 0.5 mg PO Q4HR PRN; Protocol PRN Reason: Anxiety Stop: 12/13/17 22:47 Last Admin: 11/18/17 20:31 Dose: 0.5 mg Magnesium Hydroxide (Milk Of Magnesia) 30 ml PO HS PRN PRN Reason: Constipation Stop: 01/12/18 22:52 Multivitamins/Vitamin C (Theragran) 1 tab PO DAILY [facility] Stop: 01/13/18 08:59 Last Admin: 11/20/17 10:11 Dose: 1 tab Risperidone (Risperdal) 0.25 mg PO HS HELENE; Protocol Stop: 01/15/18 20:59 Last Admin: 11/19/17 21:15 Dose: 0.25 mg Tamsulosin HCl (Flomax) 0.4 mg PO DAILY [facility] Stop: 01/13/18 08:59 Last Admin: 11/20/17 10:11 Dose: 0.4 mg Vitamin D (Vitamin D3) 4,000 iu PO DAILY [facility] Stop: 01/13/18 08:59 Last Admin: 11/20/17 10:10 Dose: 4,000 iu Zolpidem Tartrate (Ambien) 5 mg PO HS PRN PRN Reason: Insomnia Stop: 01/12/18 22:59 Last Admin: 11/16/17 20:57 Dose: 5 mg General: alert HEENT: NC/AT, PERRLA Neck: Supple Lungs: CTAB Cardiovascular: RRR, Normal S1, Normal S2, without murmur Abdomen: soft, non-tender, non-distended, positive bowel sound Neurological: alert Internal Medicine Assmt/Plan - Assessment Assessment: BPH (benign prostatic hyperplasia) (Acute) N40.0 INCREASED AGGRESSIVE BEHAVIOR (Acute) Osteoarthritis (Acute) M19.90 Psychosis (Acute) F29 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
--- NOTE | 2017-11-21 09:59 | Progress Notes ---
DATE: 11/18/2017 DATE: 11/18/2017 SUBJECTIVE: Chart reviewed and the patient interviewed. Also discussed the patient's condition with the staff and reviewed records and labs. The patient is still agitated and is still in irritable moods. He also is still restless and he still needs lots of redirections. Also, during interview, the patient seems to be preoccupied and responding. Otherwise, the patient is compliant with taking his medications with no side effects of medications and it seems that his blood pressure has been more stable today. ASSESSMENT: The patient is still confused. TREATMENT PLAN: Continue to monitor behavior and continue to work on his discharge plans. JOB# [id number]
[2017-11-21] MEDS: Vitamin D3 2,000 IU SGL PO SCH (13:25)
[2017-11-21] MEDS: Multivitamin Tab PO SCH (13:26)
[2017-11-21] MEDS: Multivitamin w/ Minerals Tab PO SCH (13:26)
--- NOTE | 2017-11-21 19:56 | Progress Notes ---
DATE: SUBJECTIVE: Chart reviewed and the patient interviewed. Also discussed the patient's condition with the staff and reviewed records and labs. The patient is still confused. Also, oriented to self. The patient also is guarded and he still has episodes of anger and irritability. The patient also is still argumentative, hyperverbal, and restless. Otherwise, the patient is compliant with taking his medications with no side effects of Risperdal and Aricept. [facility]# [id number]
--- NOTE | 2017-11-21 20:01 | Progress Notes ---
DATE: 11/19/2017 SUBJECTIVE: Chart reviewed and the patient interviewed. Also discussed the patient's condition with the staff and reviewed records and labs. The patient is still confused and anxious. The patient also is restless and is hyperverbal. The patient also is withdrawn. Also is still easily agitated. He told me "I wanted to see my mother." He also is still restless. Otherwise, the patient is compliant with taking his medications with no side effects of medications. ASSESSMENT: The patient is still confused and psychotic. TREATMENT PLAN: Continue monitoring his behavior and his condition closely. Also, continue Risperdal in a dose of 0.25 mg at bedtime and Aricept 5 mg every day and we will continue to follow up closely. [facility]# [id number]
--- NOTE | 2017-11-21 23:45 | Progress Notes ---
DATE: 11/21/2017 SUBJECTIVE: The patient was seen in his room. The patient is asleep but easily arousable. The patient appears to be confused, poor historian. Otherwise, the patient is in no acute distress. OBJECTIVE: VITAL SIGNS: Temperature 99.7, heart rate of 89, blood pressure 141/88, respirations 20, and 97% on room air. HEENT: Head is atraumatic and normocephalic. Eyes: Bilateral conjunctivae are clear. Bilateral pupils are equally round and reactive. NECK: Supple. No JVD. CARDIOVASCULAR: S1 and S2, without murmur. PULMONARY: Clear to auscultation. GASTROINTESTINAL: Soft and nontender without guarding. Positive bowel sounds. MUSCULOSKELETAL: No clubbing. No cyanosis noted. ASSESSMENT: 1. Psychosis. 2. Benign prostatic hypertrophy. 3. Osteoarthritis. 4. Vitamin D deficiency. 5. Dementia. PLAN: We will continue to have the patient inpatient to [facility] and will follow up with a psychiatrist and with the patient's condition and behavior. Treatment plans were discussed with the patient's nurse. Treatment plans were discussed with Dr. Callejas. JOB# [id number]
[2017-11-22] MEDS: Vitamin D3 2,000 IU SGL PO SCH (09:13)
[2017-11-22] MEDS: Multivitamin w/ Minerals Tab PO SCH (09:14)
[2017-11-22] MEDS: Multivitamin Tab PO SCH (09:14)
[2017-11-23] MEDS: Multivitamin w/ Minerals Tab PO SCH (09:46)
[2017-11-23] MEDS: Multivitamin Tab PO SCH (09:46)
[2017-11-23] MEDS: Vitamin D3 2,000 IU SGL PO SCH (09:46)
--- NOTE | 2017-11-23 12:43 | Progress Notes ---
DATE: 11/21/2017 SUBJECTIVE: Chart reviewed and the patient interviewed. Also, discussed the patient's condition with the staff and reviewed records and labs. The patient is still actively hallucinating and the patient is talking to himself. Also, is suspicious and paranoid and restless. The patient also still needs lots of redirections. He also is still interacting minimally with others. Otherwise, the patient is compliant with taking his medications with no side effects of medications. ASSESSMENT: The patient is still psychotic and needs close monitoring. TREATMENT PLAN: Continue Risperdal 0.25 mg at bedtime and Aricept 5 mg every day and continue to work on behavioral modification and adjusting psychotropic medications. JOB# [id number]
--- NOTE | 2017-11-23 15:54 | General Progress Note ---
Subjective - Review of Systems Events since last encounter: patient still confused awake in no acute distress Objective - Results Result Diagrams: 11/13/17 17:08 11/13/17 17:08 Recent Labs: Laboratory Last Values WBC 4.4 Th/cmm (4.8-10.8) L 11/13/17 17:08 RBC 4.12 Mil/cmm (3.80-5.80) 11/13/17 17:08 Hgb 12.1 gm/dL (12-16) 11/13/17 17:08 Hct 36.2 % (41.0-60) L 11/13/17 17:08 MCV 88.1 fl (80-99) 11/13/17 17:08 MCH 29.5 pg (27.0-31.0) 11/13/17 17:08 MCHC Differential 33.4 pg (28.0-36.0) 11/13/17 17:08 RDW 18.7 % (11.5-20.0) 11/13/17 17:08 Plt Count 272 Th/cmm (150-400) 11/13/17 17:08 MPV 7.1 fl 11/13/17 17:08 Neutrophils % 43.3 % (40.0-80.0) 11/13/17 17:08 Lymphocytes % 36.4 % (20.0-50.0) 11/13/17 17:08 Monocytes % 10.9 % (2.0-10.0) H 11/13/17 17:08 Eosinophils % 8.1 % (0.0-5.0) H 11/13/17 17:08 Basophils % 1.3 % (0.0-2.0) 11/13/17 17:08 PT 11.1 SECONDS (9.5-11.5) 11/13/17 17:08 INR 1.07 (0.5-1.4) 11/13/17 17:08 PTT (Actin FS) 25.0 SECONDS (26.0-38.0) L 11/13/17 17:08 Sodium 137 mEq/L (136-145) 11/13/17 17:08 Potassium 3.5 mEq/L (3.5-5.1) 11/13/17 17:08 Chloride 108 mEq/L (98-107) H 11/13/17 17:08 Carbon Dioxide 24.0 mEq/L (21.0-31.0) 11/13/17 17:08 Anion Gap 8.5 (7.0-16.0) 11/13/17 17:08 BUN 23 mg/dL (7-25) 11/13/17 17:08 Creatinine 1.1 mg/dL (0.7-1.3) 11/13/17 17:08 Est GFR ( Amer) TNP 11/13/17 17:08 Est GFR (Non-Af Amer) TNP 11/13/17 17:08 BUN/Creatinine Ratio 20.9 11/13/17 17:08 Glucose 98 mg/dL (70-105) 11/13/17 17:08 POC Glucose 112 MG/DL (70 - 105) H 11/16/17 23:52 Calcium 9.5 mg/dL (8.6-10.3) 11/13/17 17:08 Total Bilirubin 0.6 mg/dL (0.3-1.0) 11/13/17 17:08 AST 19 U/L (13-39) 11/13/17 17:08 ALT 15 U/L (7-52) 11/13/17 17:08 Alkaline Phosphatase 85 U/L (34-104) 11/13/17 17:08 Troponin I 0.01 ng/mL (0.01-0.05) 11/13/17 17:08 B-Natriuretic Peptide 21.1 pg/mL (5.0-100.0) 11/13/17 17:08 Total Protein 8.7 gm/dL (6.0-8.3) H 11/13/17 17:08 Albumin 3.7 gm/dL (4.2-5.5) L 11/13/17 17:08 Globulin 5.0 gm/dL 11/13/17 17:08 Albumin/Globulin Ratio 0.7 (1.0-1.8) L 11/13/17 17:08 - Physical Exam Vitals and I&O: Vital Signs Temp 98 F 11/23/17 15:07 Pulse 76 11/23/17 15:07 Resp 20 11/23/17 15:07 BP 119/69 11/23/17 15:07 Pulse Ox 97 11/23/17 15:07 Intake & Output 11/22/17 11/23/17 11/23/17 18:59 06:59 18:59 Intake Total 1500 Output Total 500 Balance 1000 Weight (lbs) 64.41 kg Intake: Oral 1500 Output: Urine 500 Other: # Voids 3 # Bowel Movements 0 Weight Source Estimated Active Medications: Current Medications Acetaminophen (Tylenol) 650 mg PO Q4HR PRN PRN Reason: Mild Pain / Temp above 100 Stop: 01/12/18 22:51 Acetaminophen (Tylenol) 325 mg PO Q4HR PRN PRN Reason: PAIN OR TEMP >101 Stop: 01/12/18 22:52 Acetaminophen (Tylenol Extra Strength) 1,000 mg PO Q4HR PRN PRN Reason: MODERATE PAIN Stop: 01/12/18 22:52 Al Hydrox/Mg Hydrox/Simethicone (Maalox) 30 ml PO Q4HR PRN PRN Reason: GI DISTRESS Stop: 01/12/18 22:51 Docusate Sodium (Colace) 100 mg PO BID HELENE Stop: 01/13/18 08:59 Last Admin: 11/23/17 09:46 Dose: 100 mg Donepezil HCl (Aricept) 5 mg PO HS [facility]ENE Stop: 01/13/18 20:59 Last Admin: 11/22/17 21:02 Dose: 5 mg Finasteride (Proscar) 5 mg PO DAILY [facility]; Protocol Stop: 01/13/18 08:59 Last Admin: 11/23/17 09:46 Dose: 5 mg Ibuprofen (Motrin) 600 mg PO Q6H PRN PRN Reason: MODERATE PAIN Stop: 01/12/18 22:52 Lorazepam (Ativan) 0.5 mg PO Q4HR PRN; Protocol PRN Reason: Anxiety Stop: 12/13/17 22:47 Last Admin: 11/22/17 21:02 Dose: 0.5 mg Magnesium Hydroxide (Milk Of Magnesia) 30 ml PO HS PRN PRN Reason: Constipation Stop: 01/12/18 22:52 Multivitamins/Vitamin C (Theragran) 1 tab PO DAILY [facility] Stop: 01/13/18 08:59 Last Admin: 11/23/17 09:46 Dose: 1 tab Risperidone (Risperdal) 0.25 mg PO HS HELENE; Protocol Stop: 01/15/18 20:59 Last Admin: 11/22/17 21:02 Dose: 0.25 mg Tamsulosin HCl (Flomax) 0.4 mg PO DAILY [facility] Stop: 01/13/18 08:59 Last Admin: 11/23/17 09:46 Dose: 0.4 mg Vitamin D (Vitamin D3) 4,000 iu PO DAILY [facility] Stop: 01/13/18 08:59 Last Admin: 11/23/17 09:46 Dose: 4,000 iu Zolpidem Tartrate (Ambien) 5 mg PO HS PRN PRN Reason: Insomnia Stop: 01/12/18 22:59 Last Admin: 11/22/17 23:30 Dose: 5 mg General: Alert, no Oriented x3 HEENT: Atraumatic Neck: Supple Cardiovascular: Regular rate, Normal S1, Normal S2 Lungs: Clear to auscultation Abdomen: Bowel sounds Assessment/Plan - Problem List Patient Problems: All Active Problems BPH (benign prostatic hyperplasia) (Acute) N40.0 INCREASED AGGRESSIVE BEHAVIOR (Acute) Osteoarthritis (Acute) M19.90 Psychosis (Acute) F29 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 Nutritional Asmnt/Malnutr-PDOC - Dietary Evaluation Malnutrition Findings (Please click <Entered> for more info): Nutritional Asmnt/Malnutrition Start: 11/20/17 16: 06 Text: Status: Complete Freq: Protocol: Document 11/20/17 16:06 CÉSARG (Rec: 11/20/17 16:32 [id number]) Nutritional Asmnt/Malnutrition Patient General Information Nutritional Screening Moderate Risk Diagnosis psychosis Pertinent Medical Hx/Surgical Hx OA, vit D deficeincy, BPH Subjective Information Pt seen lying in bed at time of visit, lunch finished 75%. Per EMR< PO intake 50-75%. Current Diet Order/ Nutrition Support pureed, ELLA large portion Pertinent Medications colace, theragran, vit D3, resperdal Pertinent Labs 11/13 cl 108, glucose 98, POC 112 Nutritional Hx/Data Height 1.75 m Height (Calculated Centimeters) 175.3 Current Weight (lbs) 70.307 kg Weight (Calculated Kilograms) 70.3 Weight (Calculated Grams) 67304.8 [place] Body Weight 160 Body Mass Index (BMI) 22.8 Weight Status Approriate GI Symptoms GI Symptoms None Last BM none Difficult in: None Skin Integrity/Comment: intact Current %PO Fair (50-74%) Estimated Nutritional Goals BEE in Kcals: Using Current wt Calories/Kcals/Kg 25-30 Kcals Calculated 0311-4916 Protein: Using Current wt Protein g/k Protein Calculated 70 Fluid: ml 1750-2100ml (1ml/kcal) Nutritional Problem No current Nutrition Prob Problem N/A Malnutrition Alert Is there a minimum of two criteria No selected? Query Text:Check all the applicable criteria. A minimum of two criteria are recommended for diagnosis of either severe or non-severe malnutrition. Malnutrition Related to Morbid Obesity Malnutrition related to morbid obesity No Intervention/Recommendation Comments 1. Continue with current diet as ordered. 2. Monitor PO intake, wt, labs and skin integrity 3. F/U as low risk in 7 days, 8/10 Expected Outcomes/Goals Expected Outcomes/Goals 1. PO intake to meet at least 75% of nutritional needs. 2. Wt stability, skin to remain intact, labs to approach WNL.
[2017-11-24] MEDS: Vitamin D3 2,000 IU SGL PO SCH (09:37)
[2017-11-24] MEDS: Multivitamin Tab PO SCH (09:38)
[2017-11-24] MEDS: Multivitamin w/ Minerals Tab PO SCH (09:38)
== END 2017-11-24 17:45 | DRG 885 ==
LOC: ER 16:08 → MSI 20:45 → UNDOADMIN 20:45 → GERO2 20:45
PROVIDERS: ADMIT Psychiatry & Neurology Psychiatry; ATTEND Psychiatry & Neurology Psychiatry
DX: F23 Brief psychotic disorder (principal); N40.0 Benign prostatic hyperplasia without lower urinary tract symptoms; M19.90 Unspecified osteoarthritis, unspecified site; E55.9 Vitamin D deficiency, unspecified; F41.9 Anxiety disorder, unspecified; F03.90 Unspecified dementia, unspecified severity, without behavioral disturbance, psychotic disturbance, mood disturbance, and anxiety; E50.8 Other manifestations of vitamin A deficiency; Z87.891 Personal history of nicotine dependence
CPT/HCPCS: 36415-UA; 71045-TC; 80053-TC; 82948-90; 83880-TC; 84484-TC; 85025-TC; 85610-TC; 93005; Z7610

== ENCOUNTER 2017-12-24 11:05 | Inpatient (IN) | payer MEDICARE ==
--- NOTE | 2017-12-24 11:31 | ED Physician Chart ---
ED Chief Complaint/HPI - Patient Information Date Seen:: 12/24/17 Time Seen:: 11:15 Chief Complaint:: leukocytosis History of Present Illness:: Patient had a white blood cell count of 21,000 and his [facility] facility. He was also sent here for generalized weakness. Allergies:: Allergies Allergy/AdvReac Type Severity Reaction Status Date / Time No Known Allergies Allergy Verified 11/13/17 16:17 Historian:: Patient, Medical Records Review:: Transfer documents Reviewed ED Review of Systems - Review of Systems General/Constitutional: Fever, No chills, No weight loss, Weakness, No diaphoresis, No edema, No loss of appetite Skin: No skin lesions, No rash, No bruising Head: No headache, No light-headedness Eyes: No loss of vision, No pain, No diplopia ENT: No earache, No nasal drainage, No sore throat, No tinnitus Neck: No neck pain, No swelling, No thyromegaly, No stiffness, No mass noted Cardio Vascular: No chest pain, No palpitations, No PND, No orthopnea, No edema Pulmonary: No SOB, No cough, No sputum, No wheezing GI: No nausea, No vomiting, No diarrhea, No pain, No melena, No hematochezia, No constipation, No hematemesis G/U: No dysuria, No frequency, No hematuria Musculoskeletal: No bone or joint pain, No back pain, No muscle pain Endocrine: No polyuria, No polydipsia Psychiatric: No prior psych history, No depression, No anxiety, No suicidal ideation Hematopoietic: No bruising, No lymphadenopathy Allergic/Immuno: No urticaria, No angioedema Neurological: No syncope, No focal symptoms, No weakness, No paresthesia, No headache, No seizure, No dizziness, No confusion, No vertigo ED Past Medical History - Past Medical History Past Medical History: Arthritis, Dementia, Other (psychosis; dysphagia; anxiety ; anemia; benign prostatic hypertrophy; depression; vitamin D deficiency) Family History: Other (unavailable) Social History: Non Smoker, No Alcohol, Care Facility Surgical History: other (unavailable) Psychiatricy History: Depression, Dementia, Other Family Medical History - Family Member Mother History Unknown: Yes Ethnicity: Non- Living Status: Hx Family Cancer: (UNKNOWN) Hx Family Coronary Artery Disease: (UNKNOWN) Hx Family Congestive Heart Failure: (UNKNOWN) Hx Family Hypertension: (UNKNOWN) Hx Family Stroke: (UNKNOWN) Hx Family Diabetes: (UNKNOWN) Hx Family Seizures: (UNKNOWN) Hx Family Dementia: (UNKNOWN) Hx Family AIDS: (UNKNOWN) Hx Family HIV: No Hx Family COPD: (UNKNOWN) Hx Family Hepatitis: (UNKNOWN) Hx Family Psychiatric Problems: (UNKNOWN) Hx Family Tuberculosis: (UNKNOWN) ED Physical Exam - Physical Examination General/Constitutional: Awake, Alert Other Gen/Cons comments:: Patient is confused. He does not know the correct year. He is chronically ill- appearing. Head: Atraumatic Eyes: Lids, conjuctiva normal, PERRL Skin: Nl inspection ENMT: External ears, nose nl, Nasal exam nl Other ENMT comments:: Edentulous Neck: No bruit, No mass Respiratory: Nl effort/Exclusion, Clear to Auscultation Cardio Vascular: RRR, No murmur, gallop, rubs, NL S1 S2 GI: No tenderness/rebounding/guarding, No organomegaly, No hernia, Normal BS's, Nondistended, No mass/bruits : No CVA tenderness Extremities: Normal digits & nails Neuro/Psych: No focal deficits Misc: No paraspinal tenderness ED Labs/Radiology/EKG Results - Lab Results Results: Laboratory Results - last 24 hr 12/24/17 12/24/17 11:15 11:15 WBC 8.6 RBC 4.16 Hgb 12.1 Hct 36.7 L MCV 88.3 MCH 29.1 MCHC Differential 33.0 RDW 16.0 Plt Count 269 MPV 7.7 Neutrophils % 69.2 Lymphocytes % 19.8 L Monocytes % 8.4 Eosinophils % 2.3 Basophils % 0.3 Sodium 132 L Potassium 3.6 Chloride 103 Carbon Dioxide 22.1 Anion Gap 10.5 BUN 33 H Creatinine 1.3 Est GFR ( Amer) TNP Est GFR (Non-Af Amer) TNP BUN/Creatinine Ratio 25.4 Glucose 101 Calcium 9.4 Abnormal Lab Results 12/24/17 12/24/17 11:15 11:15 WBC 8.6 RBC 4.16 Hgb 12.1 Hct 36.7 L MCV 88.3 MCH 29.1 MCHC Differential 33.0 RDW 16.0 Plt Count 269 MPV 7.7 Neutrophils % 69.2 Lymphocytes % 19.8 L Monocytes % 8.4 Eosinophils % 2.3 Basophils % 0.3 Sodium 132 L Potassium 3.6 Chloride 103 Carbon Dioxide 22.1 Anion Gap 10.5 BUN 33 H Creatinine 1.3 Est GFR ( Amer) TNP Est GFR (Non-Af Amer) TNP BUN/Creatinine Ratio 25.4 Glucose 101 Calcium 9.4 ED Assessment - Assessment General Assessment: Texted Dr. Callejas at 1417 ED Septic Shock - . Is Septic Shock (SBP<90, OR Lactate>4 mmol\L) present?: No ED Reassessment (Disposition) - Reassessment Reassessment Condition:: Unchanged - Diagnosis Diagnosis:: Acute febrile illness; urinary tract infection; history of recent leukocytosis; dementia - Patient Disposition Admitted to:: Med/Surg Admitting Medical Physician:: Casey Callejas Condition at Disposition:: Stable, Unchanged
[2017-12-24] MEDS ORDERED: Sodium Chloride 0.9% 1,000 ML IV ONE ×2 (11:47→16:16)
[2017-12-24 11:51] LABS: % BASOPHILS 0.3 % (0.0-2.0); % EOSINOPHILS 2.3 % (0.0-5.0); % LYMPHOCYTES 19.8 % (20.0-50.0); % MONOCYTES 8.4 % (2.0-10.0); % NEUTROPHILS 69.2 % (40.0-80.0); EOSINOPHILE ABSOLUTE 0.2 Th/cmm (0.1-0.4); HEMATOCRIT 36.7 % (41.0-60); HEMOGLOBIN 12.1 gm/dL (12-16); LYMPHOCYTE ABSOLUTE 1.7 Th/cmm (1.5-3.0); MEAN CELL VOLUME 88.3 fl (80-99); MEAN CORPUSCULAR HEMOGLOBIN 29.1 pg (27.0-31.0); MEAN PLATELET VOLUME 7.7 fl; MONOCYTE ABSOLUTE 0.7 Th/cmm (0.3-1.0); PLATELET COUNT 269 Th/cmm (150-400); RED BLOOD COUNT 4.16 Mil/cmm (3.80-5.80); WHITE BLOOD COUNT 8.6 Th/cmm (4.8-10.8)
[2017-12-24 12:06] LABS: ANION GAP 10.5 (7.0-16.0); BUN - UREA NITROGEN 33 mg/dL (7-25); CALCIUM SERUM 9.4 mg/dL (8.6-10.3); CARBON DIOXIDE 22.1 mEq/L (21.0-31.0); CHLORIDE 103 mEq/L (98-107); CREATININE - SERUM 1.3 mg/dL (0.7-1.3); GLUCOSE 101 mg/dL (70-105); POTASSIUM SERUM 3.6 mEq/L (3.5-5.1); SODIUM SERUM 132 mEq/L (136-145)
--- NOTE | 2017-12-24 12:47 | Diagnostic Imaging Report ---
CHEST X-RAY: AP view INDICATION: Fever COMPARISON: 11/13/2017 FINDINGS: There is elevation of the right hemidiaphragm with increased right basal lung markings. No focal consolidation or effusions. Heart size is normal. Atherosclerosis is noted. Degenerative changes of the spine are noted. IMPRESSION: Elevation of right hemidiaphragm with increased right basal lung markings. Findings may be due to scarring atelectasis versus less likely infiltrate. Short-term follow-up PA and lateral views may be obtained after resolution of acute symptoms.
[2017-12-24 13:45] LABS: URINE SOURCE CATH
[2017-12-24 14:00] LABS: URINE BILIRUBIN NEGATIVE (NEGATIVE); URINE BLOOD MODERATE (NEGATIVE); URINE CLARITY CL (CLEAR); URINE COLOR YELLOW; URINE GLUCOSE (UA) NEGATIVE (NEGATIVE); URINE KETONE NEGATIVE (NEGATIVE); URINE MICROSCOPIC INDICATED? YES
[2017-12-24 14:01] LABS: URINE LEUKOCYTE ESTERASE LARGE (NEGATIVE); URINE NITRATE NEGATIVE (NEGATIVE); URINE PROTEIN 100 mg/dL (NEGATIVE); URINE UROBILINOGEN 0.2 E.U./dL (0.2 - 1.0)
[2017-12-24 14:04] LABS: URINE BACTERIA MANY /hpf (NONE SEEN); URINE WBC >100 /hpf (0-5)
[2017-12-24 14:05] LABS: URINE EPITHELIAL CELLS FEW /lpf (FEW)
[2017-12-24] MEDS ORDERED: cefTRIAXone 1 GM in Sodium Chloride 0.9% 50 ML IV ONE (14:20)
[2017-12-24 15:22] VITALS: BP 100/66
[2017-12-24] MEDS ORDERED: Levofloxacin 500mg/100mL 500 MG/100 ML BAG IV SCH (17:00)
[2017-12-24] MEDS ORDERED: Magnesium Hydroxide (MOM) 30 mL UDC PO PRN (17:45)
[2017-12-24] MEDS ORDERED: Maalox 30 mL Cup PO PRN (17:45)
[2017-12-24] MEDS: cefTRIAXone 1 GM in Sodium Chloride 0.9% 50 ML IV SCH (20:42)
[2017-12-25 06:56] LABS: HEMATOCRIT 32.2 % (41.0-60); HEMOGLOBIN 10.8 gm/dL (12-16); MEAN CELL VOLUME 88.4 fl (80-99); MEAN CORPUSCULAR HEMOGLOBIN 29.6 pg (27.0-31.0); MEAN CORPUSCULAR HGB CONC 33.6 pg (28.0-36.0); MEAN PLATELET VOLUME 7.6 fl; PLATELET COUNT 245 Th/cmm (150-400); RED BLOOD COUNT 3.65 Mil/cmm (3.80-5.80); RED CELL DISTRIBUTION WIDTH 15.8 % (11.5-20.0); WHITE BLOOD COUNT 10.3 Th/cmm (4.8-10.8)
[2017-12-25 07:04] LABS: ALKALINE PHOSPHATASE 79 U/L (34-104); ANION GAP 10.7 (7.0-16.0); BILIRUBIN,TOTAL 0.4 mg/dL (0.3-1.0); BUN - UREA NITROGEN 22 mg/dL (7-25); CALCIUM SERUM 8.7 mg/dL (8.6-10.3); CARBON DIOXIDE 19.8 mEq/L (21.0-31.0); CHLORIDE 109 mEq/L (98-107); CREATININE - SERUM 1.1 mg/dL (0.7-1.3); GLUCOSE 89 mg/dL (70-105); POTASSIUM SERUM 3.5 mEq/L (3.5-5.1); SGOT 18 U/L (13-39); SGPT/ALT 24 U/L (7-52); SODIUM SERUM 136 mEq/L (136-145); TOTAL PROTEIN,SERUM 7.1 gm/dL (6.0-8.3)
[2017-12-25] MEDS: Vitamin D3 2,000 IU SGL PO SCH (08:18)
[2017-12-25] MEDS: Multivitamin Tab PO SCH (08:18)
[2017-12-25] MEDS: Levofloxacin 250mg/50mL 250 MG/50 ML BAG IV SCH (08:19)
[2017-12-25 08:25] LABS: BAND NEUTROPHILE 0 % (0-10); BASOPHIL 0 % (0-3); EOSINOPHIL 0 % (0-5); LYMPHOCYTE 6 % (20-50); MONOCYTE 4 % (2-10); NEUTROPHILS 90 % (40-80); PLATELET ESTIMATE ADEQUATE (NORMAL)
[2017-12-25 09:02] LABS: ALB/GLOB RATIO 0.6 (1.0-1.8); ALBUMIN 2.7 gm/dL (4.2-5.5)
--- NOTE | 2017-12-25 18:27 | History & Physical ---
ADMIT DATE: 12/25/2017 CHIEF COMPLAINT: Leukocytosis of 21,000. HISTORY OF PRESENT ILLNESS: This is a 77-year-old male who is a half-way resident, admitted to the telemetry unit due to a WBC count of 21,000. PAST MEDICAL HISTORY: Arthritis, dementia, psychosis, dysphagia, anxiety, anemia, BPH, depression and vitamin D deficiency. FAMILY HISTORY: Noncontributory. SOCIAL HISTORY: The patient is a half-way resident, requiring 24-hour nursing care. SURGICAL HISTORY: Unknown. ALLERGIES: No drug allergies. REVIEW OF SYSTEMS: GENERAL: Denies any fever or chills. CARDIOVASCULAR: Denies chest pain. RESPIRATORY: Denies shortness of breath. GASTROINTESTINAL: Denies nausea, vomiting or abdominal pain. GENITOURINARY: Denies increased frequency or dysuria. NEUROLOGIC: No headaches, seizures, or syncope. All other systems are reviewed and are negative. PHYSICAL EXAMINATION: GENERAL: Elderly male, awake, alert and in no apparent distress. VITAL SIGNS: Temperature 98.7, heart rate 70, blood pressure 115/62, respirations 18 and O2 99%-100%. HEENT: Head; normocephalic, atraumatic. NECK: Supple. No mass. LUNGS: Clear bilaterally. HEART: Regular rate and rhythm. ABDOMEN: Soft, nontender. LABORATORY DATA: WBC 10.3, H and H 10.8 and 32.2 and platelet of 245. Sodium 136, potassium 3.5, chloride 109, BUN 22, creatinine 1.1. The patient had a urinalysis done, positive for UTI. DIAGNOSTICS: The patient had a chest x-ray done, impression is elevation of right hemidiaphragm with increased right basal lung markings. ASSESSMENT: Acute urinary tract infection, leukocytosis, arthritis, dementia, dysphagia, anemia, benign prostatic hyperplasia and depression. PLAN: We will admit the patient to the telemetry unit. We will get ID consultation as well as Cardiology consultation. Will send urine for urine culture. Keep patient on IV fluids for hydration. We will continue to monitor this patient. JOB# [id number]
[2017-12-25] MEDS: cefTRIAXone 1 GM in Sodium Chloride 0.9% 50 ML IV SCH (20:22)
--- NOTE | 2017-12-25 21:55 | Consultation ---
DATE OF CONSULTATION: 12/25/[address] Callejas 12/25/2017. HISTORY AND PHYSICAL: This 77-year-old male patient with dementia, was brought in due to urinary tract infection. During the hospital stay, the patient was found to have a history of congestive heart failure. Following this, cardiac consult is requested. PAST MEDICAL HISTORY: Arthritis, dementia, psychosis, anxiety, major depression, vitamin D deficiency, BPH, iron-deficiency anemia. FAMILY HISTORY: Unremarkable. SOCIAL HISTORY: No history of smoking, alcohol abuse. ALLERGIES: No known allergies. PHYSICAL EXAMINATION: VITAL SIGNS: Blood pressure 130/80, pulse 70, respirations 20. HEAD: Normocephalic. No lumps or bumps. EYES: Pupils equal, reactive to light. Fundi show AV nicking, sclerae white, conjunctivae pink. NECK: Carotid 2+. Normal upstroke. JVD flat. Thyroid not palpable. Lymph nodes not palpable. CHEST: Shows increased AP diameter. No kyphosis, scoliosis. LUNGS: Bilateral bronchovesicular breath sounds. HEART: PMI fifth intercostal space with lateral to midclavicular line. S1, S2. No S3, S4, soft systolic murmur. ABDOMEN: Soft. Liver and spleen not palpable. No organomegaly. Bowel sounds active. NEUROLOGIC: No focal neurological deficit. EXTREMITIES: Peripheral pulses 2+. No pedal edema. CLINICAL IMPRESSION: Urinary tract infection, arthritis, dementia, psychosis, anxiety, iron deficiency anemia, benign prostatic hypertrophy, vitamin D deficiency, major depression, chronic congestive heart failure. PLAN: We will get echocardiogram, EKG, BNP level and monitor the patient. JOB# [id number]
--- NOTE | 2017-12-25 23:44 | Infectious Disease Prog Note ---
Infectious Disease Subjective - Review of Systems Service Date: 12/25/17 Subjective: There is no new change, no fever./ Infectious Disease Objective - Results Result Diagrams: 12/27/17 07:14 12/25/17 06:15 Recent Labs: Laboratory Last Values WBC 10.3 Th/cmm (4.8-10.8) 12/25/17 06:15 RBC 3.65 Mil/cmm (3.80-5.80) L 12/25/17 06:15 Hgb 10.8 gm/dL (12-16) L 12/25/17 06:15 Hct 32.2 % (41.0-60) L 12/25/17 06:15 MCV 88.4 fl (80-99) 12/25/17 06:15 MCH 29.6 pg (27.0-31.0) 12/25/17 06:15 MCHC Differential 33.6 pg (28.0-36.0) 12/25/17 06:15 RDW 15.8 % (11.5-20.0) 12/25/17 06:15 Plt Count 245 Th/cmm (150-400) 12/25/17 06:15 MPV 7.6 fl 12/25/17 06:15 Add Manual Diff YES 12/25/17 06:15 Neutrophils % 69.2 % (40.0-80.0) 12/24/17 11:15 Band Neutrophils % 0 % (0-10) 12/25/17 06:15 Lymphocytes % 19.8 % (20.0-50.0) L 12/24/17 11:15 Monocytes % 8.4 % (2.0-10.0) 12/24/17 11:15 Eosinophils % 2.3 % (0.0-5.0) 12/24/17 11:15 Basophils % 0.3 % (0.0-2.0) 12/24/17 11:15 Neutrophils (Manual) 90 % (40-80) H 12/25/17 06:15 Lymphocytes 6 % (20-50) L 12/25/17 06:15 Monocytes 4 % (2-10) 12/25/17 06:15 Eosinophils 0 % (0-5) 12/25/17 06:15 Basophils 0 % (0-3) 12/25/17 06:15 Platelet Estimate ADEQUATE (NORMAL) 12/25/17 06:15 Sodium 136 mEq/L (136-145) 12/25/17 06:15 Potassium 3.5 mEq/L (3.5-5.1) 12/25/17 06:15 Chloride 109 mEq/L (98-107) H 12/25/17 06:15 Carbon Dioxide 19.8 mEq/L (21.0-31.0) L 12/25/17 06:15 Anion Gap 10.7 (7.0-16.0) 12/25/17 06:15 BUN 22 mg/dL (7-25) 12/25/17 06:15 Creatinine 1.1 mg/dL (0.7-1.3) 12/25/17 06:15 Est GFR ( Amer) TNP 12/25/17 06:15 Est GFR (Non-Af Amer) TNP 12/25/17 06:15 BUN/Creatinine Ratio 20.0 12/25/17 06:15 Glucose 89 mg/dL (70-105) 12/25/17 06:15 Calcium 8.7 mg/dL (8.6-10.3) 12/25/17 06:15 Total Bilirubin 0.4 mg/dL (0.3-1.0) 12/25/17 06:15 AST 18 U/L (13-39) 12/25/17 06:15 ALT 24 U/L (7-52) 12/25/17 06:15 Alkaline Phosphatase 79 U/L (34-104) 12/25/17 06:15 Total Protein 7.1 gm/dL (6.0-8.3) 12/25/17 06:15 Albumin 2.7 gm/dL (4.2-5.5) L 12/25/17 06:15 Globulin 4.4 gm/dL 12/25/17 06:15 Albumin/Globulin Ratio 0.6 (1.0-1.8) L 12/25/17 06:15 Urine Source CATH 12/24/17 12:15 Urine Color YELLOW 12/24/17 12:15 Urine Clarity CL (CLEAR) 12/24/17 12:15 Urine pH 7.0 (4.6 - 8.0) 12/24/17 12:15 Ur Specific [place] 1.010 (1.005-1.030) 12/24/17 12:15 Urine Protein 100 mg/dL (NEGATIVE) H 12/24/17 12:15 Urine Glucose (UA) NEGATIVE mg/dL (NEGATIVE) 12/24/17 12:15 Urine Ketones NEGATIVE mg/dL (NEGATIVE) 12/24/17 12:15 Urine Blood MODERATE (NEGATIVE) H 12/24/17 12:15 Urine Nitrate NEGATIVE (NEGATIVE) 12/24/17 12:15 Urine Bilirubin NEGATIVE (NEGATIVE) 12/24/17 12:15 Urine Urobilinogen 0.2 E.U./dL (0.2 - 1.0) 12/24/17 12:15 Ur Leukocyte Esterase LARGE (NEGATIVE) H 12/24/17 12:15 Urine RBC 2-5 /hpf (0-5) H 12/24/17 12:15 Urine WBC >100 /hpf (0-5) H 12/24/17 12:15 Ur Epithelial Cells FEW /lpf (FEW) 12/24/17 12:15 Urine Bacteria MANY /hpf (NONE SEEN) H 12/24/17 12:15 - Physical Exam Vitals and I&O: Vital Signs Temp 97.9 F 12/25/17 20:00 Pulse 69 12/25/17 20:00 Resp 18 12/25/17 20:00 BP 105/63 12/25/17 20:00 Pulse Ox 100 12/25/17 20:00 Intake & Output 12/25/17 12/25/17 12/26/17 06:59 18:59 06:59 Intake Total 170 50 Balance 170 50 Weight (lbs) 58.967 kg Intake: Intake, IV Amount 50 50 Levofloxacin 250mg/50mL 50 250 mg In 50 ml @ 50 mls/ hr IV Q24H [facility] Rx#: [id number] cefTRIAXone 1 gm In 50 Sodium Chloride 0.9% 50 ml @ 100 mls/hr IV Q24HR [facility] Rx#:[id number] Oral 120 Other: # Voids 3 Weight Source Bedscale Active Medications: Current Medications Acetaminophen (Tylenol) 650 mg PO Q4HR PRN PRN Reason: MILD PAIN Stop: 02/22/18 17:44 Last Admin: 12/25/17 08:18 Dose: 650 mg Al Hydrox/Mg Hydrox/Simethicone (Maalox) 30 ml PO Q4HR PRN PRN Reason: GI DISTRESS Stop: 02/22/18 17:44 Bisacodyl (Dulcolax 10 Mg Supp) 10 mg RC DAILY PRN PRN Reason: IF MOM INEFFECTIVE Stop: 02/22/18 17:44 Docusate Sodium (Colace) 100 mg PO BID [facility] Stop: 02/23/18 08:59 Last Admin: 12/25/17 17:50 Dose: 100 mg Donepezil HCl (Aricept) 5 mg PO HS [facility] Stop: 02/22/18 20:59 Last Admin: 12/25/17 20:24 Dose: 5 mg Finasteride (Proscar) 5 mg PO DAILY [facility]; Protocol Stop: 02/23/18 08:59 Last Admin: 12/25/17 08:18 Dose: 5 mg Levofloxacin (Levaquin Pb) 250 mg in 50 mls @ 50 mls/hr IV Q24H [facility] Stop: 02/23/18 08:59 Last Infusion: 12/25/17 09:20 Dose: Infused Ceftriaxone Sodium 1 gm/ (Sodium Chloride) 50 mls @ 100 mls/hr IV Q24HR [facility] Stop: 12/30/17 21:29 Last Admin: 12/25/17 20:22 Dose: 100 mls/hr Ibuprofen (Motrin) 600 mg PO Q6H PRN PRN Reason: MODERATE PAIN Stop: 02/22/18 17:44 Magnesium Hydroxide (Milk Of Magnesia) 30 ml PO HS PRN PRN Reason: Constipation Stop: 02/22/18 17:44 Multivitamins/Vitamin C (Theragran) 1 tab PO DAILY [facility] Stop: 02/23/18 08:59 Last Admin: 12/25/17 08:18 Dose: 1 tab Mupirocin (Bactroban Oint) 1 appl NS BID [facility] Stop: 12/30/17 09:01 Last Admin: 12/25/17 17:51 Dose: 1 appl Risperidone (Risperdal) 0.25 mg PO HS [facility]; Protocol Stop: 02/22/18 20:59 Tamsulosin HCl (Flomax) 0.4 mg PO DAILY [facility] Stop: 02/23/18 08:59 Last Admin: 12/25/17 08:18 Dose: 0.4 mg Vitamin D (Vitamin D3) 4,000 iu PO DAILY [facility] Stop: 02/23/18 08:59 Last Admin: 12/25/17 08:18 Dose: 4,000 iu General: no acute distress, well developed, well nourished HEENT: atraumatic, normocephalic, PERRLA Neck: supple, no thyromegaly Cardiovascular: S1S2, regular Lungs: clear to auscultation bilaterally, clear to percussion Abdomen: soft, no tender Extremities: no cyanosis, no clubbing, no edema Neurological: awake, alert, oriented Infectious Disease Assmt/Plan - Problem List Patient Problems: All Active Problems WEAKNESS WITH ELEVATED WBC (Acute) - Assessment Assessment: 1. UTI. 2. Dementia. 3. Dysphagia, arthritis. 4. Anemia 5. BPH. - Plan Plan: Continue same treatment.
--- NOTE | 2017-12-26 01:44 | Consultation ---
DATE OF CONSULTATION: 12/24/2017 INFECTIOUS DISEASE CONSULTATION PRIMARY CARE PHYSICIAN: Dr. Callejas. REASON FOR CONSULTATION: This is a 77-year-old male who was brought to the Emergency Room with complaint of leukocytosis. HISTORY OF PRESENT ILLNESS: The patient lives in a usp, was found to have leukocytosis 21,000 and the patient was sent to the ER where the patient was found to have pneumonia, UTI, admitted to the hospital. Infectious consultation was called for further treatment. The patient has dementia, unable to provide meaningful history custodial documents reviewed, pertinent information obtained. PAST MEDICAL HISTORY: Dementia, depression and benign prostatic hypertrophy. FAMILY HISTORY: Negative. REVIEW OF SYSTEMS: A 14-point review of systems negative except above. No HIV, hepatitis, fall, trauma, bleeding or seizures. PHYSICAL EXAMINATION: GENERAL/VITAL SIGNS: Elderly male with the following vital signs: Temperature is 98, pulse 76, respiration 18 and blood pressure 100/66. HEENT: Mild pallor, no icterus, no plaque. NECK: Supple. LUNGS: Breath sounds bilateral. CARDIOVASCULAR: S1. ABDOMEN: Soft, bowel sounds present. NODES: No cervical lymph nodes. LABORATORY AND DIAGNOSTIC DATA: Cultures are pending. White count is 8000, hemoglobin 12 grams and platelets 269. Chest x-ray reviewed shows right-sided infiltrate. UA shows large leukocyte esterase, more than 100 wbc's and many bacteria. DIAGNOSES: Urinary tract infection and pneumonia. The patient started on Rocephin and Levaquin. Regarding ____ dementia, Aricept; constipation, Dulcolax and ____. Thank you Dr. Callejas for this consultation. JOB# [id number]
[2017-12-26] MEDS: Multivitamin Tab PO SCH (08:59)
[2017-12-26] MEDS: Vitamin D3 2,000 IU SGL PO SCH (08:59)
[2017-12-26] MEDS: Levofloxacin 250mg/50mL 250 MG/50 ML BAG IV SCH (09:00)
[2017-12-26] MEDS ORDERED: Meropenem 500 MG in Sodium Chloride 0.9% 100 ML IV SCH ×2 (17:18→21:00)
--- NOTE | 2017-12-26 23:08 | Progress Notes ---
DATE: 12/26/2017 SUBJECTIVE: The patient was seen in his room. The patient is awake, alert, oriented with episodes of confusion. Otherwise, the patient appears to be in no acute distress. OBJECTIVE: VITAL SIGNS: Temperature 97.9, heart rate 78, blood pressure 130/86, respirations of 18, 100% on room air. HEENT: Head is atraumatic and normocephalic. Eyes: Bilateral conjunctivae are clear. Bilateral pupils are equally round and reactive. NECK: Supple. No JVD. CARDIOVASCULAR: S1 and S2, without murmur. PULMONARY: Clear to auscultation. GASTROINTESTINAL: Soft and nontender without guarding. Positive bowel sounds. MUSCULOSKELETAL: No clubbing. No cyanosis noted. ASSESSMENT: 1. Urinary tract infection. 2. Osteoarthritis. 3. Dementia. 4. Anemia. 5. Benign prostatic hypertrophy. PLAN: We will continue current treatment. We will follow up with ID doctor for antibiotic management. Treatment plans were discussed with the patient's nurse. Treatment plans were discussed with Dr. Callejas. JOB# [id number]
--- NOTE | 2017-12-26 23:38 | Infectious Disease Prog Note ---
Infectious Disease Subjective - Review of Systems Service Date: 12/26/17 Subjective: Patient has developed fevers/ Infectious Disease Objective - Results Result Diagrams: 12/27/17 07:14 12/25/17 06:15 Recent Labs: Laboratory Last Values WBC 10.3 Th/cmm (4.8-10.8) 12/25/17 06:15 RBC 3.65 Mil/cmm (3.80-5.80) L 12/25/17 06:15 Hgb 10.8 gm/dL (12-16) L 12/25/17 06:15 Hct 32.2 % (41.0-60) L 12/25/17 06:15 MCV 88.4 fl (80-99) 12/25/17 06:15 MCH 29.6 pg (27.0-31.0) 12/25/17 06:15 MCHC Differential 33.6 pg (28.0-36.0) 12/25/17 06:15 RDW 15.8 % (11.5-20.0) 12/25/17 06:15 Plt Count 245 Th/cmm (150-400) 12/25/17 06:15 MPV 7.6 fl 12/25/17 06:15 Add Manual Diff YES 12/25/17 06:15 Neutrophils % 69.2 % (40.0-80.0) 12/24/17 11:15 Band Neutrophils % 0 % (0-10) 12/25/17 06:15 Lymphocytes % 19.8 % (20.0-50.0) L 12/24/17 11:15 Monocytes % 8.4 % (2.0-10.0) 12/24/17 11:15 Eosinophils % 2.3 % (0.0-5.0) 12/24/17 11:15 Basophils % 0.3 % (0.0-2.0) 12/24/17 11:15 Neutrophils (Manual) 90 % (40-80) H 12/25/17 06:15 Lymphocytes 6 % (20-50) L 12/25/17 06:15 Monocytes 4 % (2-10) 12/25/17 06:15 Eosinophils 0 % (0-5) 12/25/17 06:15 Basophils 0 % (0-3) 12/25/17 06:15 Platelet Estimate ADEQUATE (NORMAL) 12/25/17 06:15 Sodium 136 mEq/L (136-145) 12/25/17 06:15 Potassium 3.5 mEq/L (3.5-5.1) 12/25/17 06:15 Chloride 109 mEq/L (98-107) H 12/25/17 06:15 Carbon Dioxide 19.8 mEq/L (21.0-31.0) L 12/25/17 06:15 Anion Gap 10.7 (7.0-16.0) 12/25/17 06:15 BUN 22 mg/dL (7-25) 12/25/17 06:15 Creatinine 1.1 mg/dL (0.7-1.3) 12/25/17 06:15 Est GFR ( Amer) TNP 12/25/17 06:15 Est GFR (Non-Af Amer) TNP 12/25/17 06:15 BUN/Creatinine Ratio 20.0 12/25/17 06:15 Glucose 89 mg/dL (70-105) 12/25/17 06:15 Calcium 8.7 mg/dL (8.6-10.3) 12/25/17 06:15 Total Bilirubin 0.4 mg/dL (0.3-1.0) 12/25/17 06:15 AST 18 U/L (13-39) 12/25/17 06:15 ALT 24 U/L (7-52) 12/25/17 06:15 Alkaline Phosphatase 79 U/L (34-104) 12/25/17 06:15 B-Natriuretic Peptide 95.1 pg/mL (5.0-100.0) 12/26/17 06:00 Total Protein 7.1 gm/dL (6.0-8.3) 12/25/17 06:15 Albumin 2.7 gm/dL (4.2-5.5) L 12/25/17 06:15 Globulin 4.4 gm/dL 12/25/17 06:15 Albumin/Globulin Ratio 0.6 (1.0-1.8) L 12/25/17 06:15 Urine Source CATH 12/24/17 12:15 Urine Color YELLOW 12/24/17 12:15 Urine Clarity CL (CLEAR) 12/24/17 12:15 Urine pH 7.0 (4.6 - 8.0) 12/24/17 12:15 Ur Specific [place] 1.010 (1.005-1.030) 12/24/17 12:15 Urine Protein 100 mg/dL (NEGATIVE) H 12/24/17 12:15 Urine Glucose (UA) NEGATIVE mg/dL (NEGATIVE) 12/24/17 12:15 Urine Ketones NEGATIVE mg/dL (NEGATIVE) 12/24/17 12:15 Urine Blood MODERATE (NEGATIVE) H 12/24/17 12:15 Urine Nitrate NEGATIVE (NEGATIVE) 12/24/17 12:15 Urine Bilirubin NEGATIVE (NEGATIVE) 12/24/17 12:15 Urine Urobilinogen 0.2 E.U./dL (0.2 - 1.0) 12/24/17 12:15 Ur Leukocyte Esterase LARGE (NEGATIVE) H 12/24/17 12:15 Urine RBC 2-5 /hpf (0-5) H 12/24/17 12:15 Urine WBC >100 /hpf (0-5) H 12/24/17 12:15 Ur Epithelial Cells FEW /lpf (FEW) 12/24/17 12:15 Urine Bacteria MANY /hpf (NONE SEEN) H 12/24/17 12:15 - Physical Exam Vitals and I&O: Vital Signs Temp 99.8 F 12/26/17 20:00 Pulse 103 12/26/17 20:00 Resp 18 12/26/17 20:00 BP 142/71 12/26/17 20:00 Pulse Ox 100 12/26/17 20:00 Intake & Output 12/26/17 12/26/17 12/27/17 06:59 18:59 06:59 Intake Total 170 450 Balance 170 450 Weight (lbs) 56.245 kg 56.245 kg Intake: Oral 120 450 Other 50 Other: # Voids 2 3 # Bowel Movements 1 1 Weight Source Bedscale Bedscale Active Medications: Current Medications Acetaminophen (Tylenol) 650 mg PO Q4HR PRN PRN Reason: MILD PAIN Stop: 02/22/18 17:44 Last Admin: 12/26/17 15:15 Dose: 650 mg Acetaminophen (Tylenol 650mg Supp) 650 mg RC Q6H PRN PRN Reason: Fever >101 Stop: 02/24/18 17:08 Al Hydrox/Mg Hydrox/Simethicone (Maalox) 30 ml PO Q4HR PRN PRN Reason: GI DISTRESS Stop: 02/22/18 17:44 Bisacodyl (Dulcolax 10 Mg Supp) 10 mg RC DAILY PRN PRN Reason: IF MOM INEFFECTIVE Stop: 02/22/18 17:44 Docusate Sodium (Colace) 100 mg PO BID [facility] Stop: 02/23/18 08:59 Last Admin: 12/26/17 17:05 Dose: Not Given Donepezil HCl (Aricept) 5 mg PO HS [facility] Stop: 02/22/18 20:59 Last Admin: 12/26/17 20:09 Dose: 5 mg Finasteride (Proscar) 5 mg PO DAILY [facility]; Protocol Stop: 02/23/18 08:59 Last Admin: 12/26/17 08:58 Dose: 5 mg Meropenem 500 mg/ Sodium (Chloride) 100 mls @ 100 mls/hr IV Q12HR [facility] Stop: 02/25/18 08:59 Ibuprofen (Motrin) 600 mg PO Q6H PRN PRN Reason: MODERATE PAIN Stop: 02/22/18 17:44 Magnesium Hydroxide (Milk Of Magnesia) 30 ml PO HS PRN PRN Reason: Constipation Stop: 02/22/18 17:44 Multivitamins/Vitamin C (Theragran) 1 tab PO DAILY [facility] Stop: 02/23/18 08:59 Last Admin: 12/26/17 08:59 Dose: 1 tab Mupirocin (Bactroban Oint) 1 appl NS BID [facility] Stop: 12/30/17 09:01 Last Admin: 12/26/17 17:05 Dose: Not Given Ondansetron HCl (Zofran) 4 mg IV Q6H PRN PRN Reason: Nausea / Vomiting Stop: 02/24/18 17:01 Risperidone (Risperdal) 0.25 mg PO HS [facility]; Protocol Stop: 02/22/18 20:59 Tamsulosin HCl (Flomax) 0.4 mg PO DAILY [facility] Stop: 02/23/18 08:59 Last Admin: 12/26/17 08:59 Dose: 0.4 mg Vitamin D (Vitamin D3) 4,000 iu PO DAILY [facility] Stop: 02/23/18 08:59 Last Admin: 12/26/17 08:59 Dose: 4,000 iu General: no acute distress, well developed, well nourished HEENT: atraumatic, normocephalic, PERRLA, EOMI Neck: supple, no thyromegaly Cardiovascular: S1S2, regular Lungs: clear to auscultation bilaterally, clear to percussion Abdomen: soft, no tender, no hepatomegaly Extremities: no cyanosis, no clubbing, no edema Neurological: awake, alert, oriented Skin: intact Infectious Disease Assmt/Plan - Problem List Patient Problems: All Active Problems WEAKNESS WITH ELEVATED WBC (Acute) - Assessment Assessment: 1. UTI. 2. Dementia. 3. Dysphagia, arthritis. 4. Anemia 5. BPH. - Plan Plan: Change antibiotics to meropenem 500mg IVPB q 8hrly.
[2017-12-27 07:29] LABS: HEMATOCRIT 32.1 % (41.0-60); HEMOGLOBIN 10.8 gm/dL (12-16)
[2017-12-27 08:09] LABS: MEAN CELL VOLUME 88.5 fl (80-99); MEAN CORPUSCULAR HEMOGLOBIN 29.7 pg (27.0-31.0); MEAN CORPUSCULAR HGB CONC 33.6 pg (28.0-36.0); MEAN PLATELET VOLUME 7.4 fl; PLATELET COUNT 243 Th/cmm (150-400); RED BLOOD COUNT 3.63 Mil/cmm (3.80-5.80)
[2017-12-27 08:10] LABS: BAND NEUTROPHILE 3 % (0-10); BASOPHIL 0 % (0-3); EOSINOPHIL 0 % (0-5); LYMPHOCYTE 16 % (20-50); MONOCYTE 6 % (2-10); NEUTROPHILS 75 % (40-80)
[2017-12-27] MEDS: Vitamin D3 2,000 IU SGL PO SCH (08:33)
[2017-12-27] MEDS: Multivitamin Tab PO SCH (08:33)
[2017-12-27] MEDS: Meropenem 500 mg in NS 0.9% 100 ML IV SCH ×2 (08:33→21:14)
--- NOTE | 2017-12-27 11:27 | General Progress Note ---
Subjective - Review of Systems Events since last encounter: patient is confused otherwise no distress Objective - Results Result Diagrams: 12/27/17 07:14 12/25/17 06:15 Recent Labs: Laboratory Last Values WBC 15.0 Th/cmm (4.8-10.8) H 12/27/17 07:14 RBC 3.63 Mil/cmm (3.80-5.80) L 12/27/17 07:14 Hgb 10.8 gm/dL (12-16) L 12/27/17 07:14 Hct 32.1 % (41.0-60) L 12/27/17 07:14 MCV 88.5 fl (80-99) 12/27/17 07:14 MCH 29.7 pg (27.0-31.0) 12/27/17 07:14 MCHC Differential 33.6 pg (28.0-36.0) 12/27/17 07:14 RDW 16.0 % (11.5-20.0) 12/27/17 07:14 Plt Count 243 Th/cmm (150-400) 12/27/17 07:14 MPV 7.4 fl 12/27/17 07:14 Add Manual Diff YES 12/27/17 07:14 Neutrophils % 69.2 % (40.0-80.0) 12/24/17 11:15 Band Neutrophils % 3 % (0-10) 12/27/17 07:14 Lymphocytes % 19.8 % (20.0-50.0) L 12/24/17 11:15 Monocytes % 8.4 % (2.0-10.0) 12/24/17 11:15 Eosinophils % 2.3 % (0.0-5.0) 12/24/17 11:15 Basophils % 0.3 % (0.0-2.0) 12/24/17 11:15 Neutrophils (Manual) 75 % (40-80) 12/27/17 07:14 Lymphocytes 16 % (20-50) L 12/27/17 07:14 Monocytes 6 % (2-10) 12/27/17 07:14 Eosinophils 0 % (0-5) 12/27/17 07:14 Basophils 0 % (0-3) 12/27/17 07:14 Platelet Estimate ADEQUATE (NORMAL) 09/07/18 06:15 Sodium 136 mEq/L (136-145) 12/25/17 06:15 Potassium 3.5 mEq/L (3.5-5.1) 12/25/17 06:15 Chloride 109 mEq/L (98-107) H 12/25/17 06:15 Carbon Dioxide 19.8 mEq/L (21.0-31.0) L 12/25/17 06:15 Anion Gap 10.7 (7.0-16.0) 12/25/17 06:15 BUN 22 mg/dL (7-25) 12/25/17 06:15 Creatinine 1.1 mg/dL (0.7-1.3) 12/25/17 06:15 Est GFR ( Amer) TNP 12/25/17 06:15 Est GFR (Non-Af Amer) TNP 12/25/17 06:15 BUN/Creatinine Ratio 20.0 12/25/17 06:15 Glucose 89 mg/dL (70-105) 12/25/17 06:15 Calcium 8.7 mg/dL (8.6-10.3) 12/25/17 06:15 Total Bilirubin 0.4 mg/dL (0.3-1.0) 12/25/17 06:15 AST 18 U/L (13-39) 12/25/17 06:15 ALT 24 U/L (7-52) 12/25/17 06:15 Alkaline Phosphatase 79 U/L (34-104) 12/25/17 06:15 B-Natriuretic Peptide 95.1 pg/mL (5.0-100.0) 12/26/17 06:00 Total Protein 7.1 gm/dL (6.0-8.3) 12/25/17 06:15 Albumin 2.7 gm/dL (4.2-5.5) L 12/25/17 06:15 Globulin 4.4 gm/dL 12/25/17 06:15 Albumin/Globulin Ratio 0.6 (1.0-1.8) L 12/25/17 06:15 Urine Source CATH 12/24/17 12:15 Urine Color YELLOW 12/24/17 12:15 Urine Clarity CL (CLEAR) 12/24/17 12:15 Urine pH 7.0 (4.6 - 8.0) 12/24/17 12:15 Ur Specific [place] 1.010 (1.005-1.030) 12/24/17 12:15 Urine Protein 100 mg/dL (NEGATIVE) H 12/24/17 12:15 Urine Glucose (UA) NEGATIVE mg/dL (NEGATIVE) 12/24/17 12:15 Urine Ketones NEGATIVE mg/dL (NEGATIVE) 12/24/17 12:15 Urine Blood MODERATE (NEGATIVE) H 12/24/17 12:15 Urine Nitrate NEGATIVE (NEGATIVE) 12/24/17 12:15 Urine Bilirubin NEGATIVE (NEGATIVE) 12/24/17 12:15 Urine Urobilinogen 0.2 E.U./dL (0.2 - 1.0) 12/24/17 12:15 Ur Leukocyte Esterase LARGE (NEGATIVE) H 12/24/17 12:15 Urine RBC 2-5 /hpf (0-5) H 12/24/17 12:15 Urine WBC >100 /hpf (0-5) H 12/24/17 12:15 Ur Epithelial Cells FEW /lpf (FEW) 12/24/17 12:15 Urine Bacteria MANY /hpf (NONE SEEN) H 12/24/17 12:15 - Physical Exam Vitals and I&O: Vital Signs Temp 96.8 F 12/27/17 07:54 Pulse 67 12/27/17 08:00 Resp 14 12/27/17 08:00 BP 158/88 12/27/17 07:54 Pulse Ox 98 12/27/17 08:00 Intake & Output 12/26/17 12/27/17 12/27/17 18:59 06:59 18:59 Intake Total 500 Balance 500 Weight (lbs) 55.429 kg Intake: Oral 500 Other: # Voids 3 # Bowel Movements 1 Weight Source Bedscale Active Medications: Current Medications Acetaminophen (Tylenol) 650 mg PO Q4HR PRN PRN Reason: MILD PAIN Stop: 02/22/18 17:44 Last Admin: 12/26/17 15:15 Dose: 650 mg Acetaminophen (Tylenol 650mg Supp) 650 mg RC Q6H PRN PRN Reason: Fever >101 Stop: 02/24/18 17:08 Al Hydrox/Mg Hydrox/Simethicone (Maalox) 30 ml PO Q4HR PRN PRN Reason: GI DISTRESS Stop: 02/22/18 17:44 Bisacodyl (Dulcolax 10 Mg Supp) 10 mg RC DAILY PRN PRN Reason: IF MOM INEFFECTIVE Stop: 02/22/18 17:44 Docusate Sodium (Colace) 100 mg PO BID [facility] Stop: 02/23/18 08:59 Last Admin: 12/27/17 08:33 Dose: 100 mg Donepezil HCl (Aricept) 5 mg PO HS [facility] Stop: 02/22/18 20:59 Last Admin: 12/26/17 20:09 Dose: 5 mg Finasteride (Proscar) 5 mg PO DAILY [facility]; Protocol Stop: 02/23/18 08:59 Last Admin: 12/27/17 08:32 Dose: 5 mg Meropenem 500 mg/ Sodium (Chloride) 100 mls @ 100 mls/hr IV Q12HR [facility] Stop: 02/25/18 08:59 Last Admin: 12/27/17 08:33 Dose: 100 mls/hr Ibuprofen (Motrin) 600 mg PO Q6H PRN PRN Reason: MODERATE PAIN Stop: 02/22/18 17:44 Magnesium Hydroxide (Milk Of Magnesia) 30 ml PO HS PRN PRN Reason: Constipation Stop: 02/22/18 17:44 Multivitamins/Vitamin C (Theragran) 1 tab PO DAILY [facility] Stop: 02/23/18 08:59 Last Admin: 12/27/17 08:33 Dose: 1 tab Mupirocin (Bactroban Oint) 1 appl NS BID [facility] Stop: 12/30/17 09:01 Last Admin: 12/27/17 08:33 Dose: 1 appl Ondansetron HCl (Zofran) 4 mg IV Q6H PRN PRN Reason: Nausea / Vomiting Stop: 02/24/18 17:01 Risperidone (Risperdal) 0.25 mg PO HS [facility]; Protocol Stop: 02/22/18 20:59 Tamsulosin HCl (Flomax) 0.4 mg PO DAILY [facility] Stop: 02/23/18 08:59 Last Admin: 12/27/17 08:32 Dose: 0.4 mg Vitamin D (Vitamin D3) 4,000 iu PO DAILY [facility] Stop: 02/23/18 08:59 Last Admin: 12/27/17 08:33 Dose: 4,000 iu General: No acute distress HEENT: Atraumatic Neck: Supple Cardiovascular: Regular rate, Normal S1 Assessment/Plan - Problem List Patient Problems: All Active Problems WEAKNESS WITH ELEVATED WBC (Acute)
--- NOTE | 2017-12-27 19:23 | Infectious Disease Prog Note ---
Infectious Disease Subjective - Review of Systems Service Date: 12/27/17 Subjective: Patient has developed fever yesterday. Infectious Disease Objective - Results Result Diagrams: 12/27/17 07:14 12/25/17 06:15 Recent Labs: Laboratory Last Values WBC 15.0 Th/cmm (4.8-10.8) H 12/27/17 07:14 RBC 3.63 Mil/cmm (3.80-5.80) L 12/27/17 07:14 Hgb 10.8 gm/dL (12-16) L 12/27/17 07:14 Hct 32.1 % (41.0-60) L 12/27/17 07:14 MCV 88.5 fl (80-99) 12/27/17 07:14 MCH 29.7 pg (27.0-31.0) 12/27/17 07:14 MCHC Differential 33.6 pg (28.0-36.0) 12/27/17 07:14 RDW 16.0 % (11.5-20.0) 12/27/17 07:14 Plt Count 243 Th/cmm (150-400) 12/27/17 07:14 MPV 7.4 fl 12/27/17 07:14 Add Manual Diff YES 12/27/17 07:14 Neutrophils % 69.2 % (40.0-80.0) 12/24/17 11:15 Band Neutrophils % 3 % (0-10) 12/27/17 07:14 Lymphocytes % 19.8 % (20.0-50.0) L 12/24/17 11:15 Monocytes % 8.4 % (2.0-10.0) 12/24/17 11:15 Eosinophils % 2.3 % (0.0-5.0) 12/24/17 11:15 Basophils % 0.3 % (0.0-2.0) 12/24/17 11:15 Neutrophils (Manual) 75 % (40-80) 12/27/17 07:14 Lymphocytes 16 % (20-50) L 12/27/17 07:14 Monocytes 6 % (2-10) 12/27/17 07:14 Eosinophils 0 % (0-5) 12/27/17 07:14 Basophils 0 % (0-3) 12/27/17 07:14 Platelet Estimate ADEQUATE (NORMAL) 12/25/17 06:15 Sodium 136 mEq/L (136-145) 12/25/17 06:15 Potassium 3.5 mEq/L (3.5-5.1) 12/25/17 06:15 Chloride 109 mEq/L (98-107) H 12/25/17 06:15 Carbon Dioxide 19.8 mEq/L (21.0-31.0) L 12/25/17 06:15 Anion Gap 10.7 (7.0-16.0) 12/25/17 06:15 BUN 22 mg/dL (7-25) 12/25/17 06:15 Creatinine 1.1 mg/dL (0.7-1.3) 12/25/17 06:15 Est GFR ( Amer) TNP 12/25/17 06:15 Est GFR (Non-Af Amer) TNP 12/25/17 06:15 BUN/Creatinine Ratio 20.0 12/25/17 06:15 Glucose 89 mg/dL (70-105) 12/25/17 06:15 Calcium 8.7 mg/dL (8.6-10.3) 12/25/17 06:15 Total Bilirubin 0.4 mg/dL (0.3-1.0) 12/25/17 06:15 AST 18 U/L (13-39) 12/25/17 06:15 ALT 24 U/L (7-52) 12/25/17 06:15 Alkaline Phosphatase 79 U/L (34-104) 12/25/17 06:15 B-Natriuretic Peptide 95.1 pg/mL (5.0-100.0) 12/26/17 06:00 Total Protein 7.1 gm/dL (6.0-8.3) 12/25/17 06:15 Albumin 2.7 gm/dL (4.2-5.5) L 12/25/17 06:15 Globulin 4.4 gm/dL 12/25/17 06:15 Albumin/Globulin Ratio 0.6 (1.0-1.8) L 12/25/17 06:15 Urine Source CATH 12/24/17 12:15 Urine Color YELLOW 12/24/17 12:15 Urine Clarity CL (CLEAR) 12/24/17 12:15 Urine pH 7.0 (4.6 - 8.0) 12/24/17 12:15 Ur Specific [place] 1.010 (1.005-1.030) 12/24/17 12:15 Urine Protein 100 mg/dL (NEGATIVE) H 12/24/17 12:15 Urine Glucose (UA) NEGATIVE mg/dL (NEGATIVE) 12/24/17 12:15 Urine Ketones NEGATIVE mg/dL (NEGATIVE) 12/24/17 12:15 Urine Blood MODERATE (NEGATIVE) H 12/24/17 12:15 Urine Nitrate NEGATIVE (NEGATIVE) 12/24/17 12:15 Urine Bilirubin NEGATIVE (NEGATIVE) 12/24/17 12:15 Urine Urobilinogen 0.2 E.U./dL (0.2 - 1.0) 12/24/17 12:15 Ur Leukocyte Esterase LARGE (NEGATIVE) H 12/24/17 12:15 Urine RBC 2-5 /hpf (0-5) H 12/24/17 12:15 Urine WBC >100 /hpf (0-5) H 12/24/17 12:15 Ur Epithelial Cells FEW /lpf (FEW) 12/24/17 12:15 Urine Bacteria MANY /hpf (NONE SEEN) H 12/24/17 12:15 - Physical Exam Vitals and I&O: Vital Signs Temp 97.5 F 12/27/17 15:45 Pulse 69 12/27/17 15:45 Resp 18 12/27/17 15:45 BP 129/61 12/27/17 15:45 Pulse Ox 98 12/27/17 15:45 Intake & Output 12/27/17 12/27/17 12/28/17 06:59 18:59 06:59 Intake Total 500 450 Balance 500 450 Weight (lbs) 55.429 kg 56.245 kg Intake: Oral 500 450 Other: # Voids 3 3 # Bowel Movements 1 1 Weight Source Bedscale Bedscale Active Medications: Current Medications Acetaminophen (Tylenol) 650 mg PO Q4HR PRN PRN Reason: MILD PAIN Stop: 02/22/18 17:44 Last Admin: 12/26/17 15:15 Dose: 650 mg Acetaminophen (Tylenol 650mg Supp) 650 mg RC Q6H PRN PRN Reason: Fever >101 Stop: 02/24/18 17:08 Al Hydrox/Mg Hydrox/Simethicone (Maalox) 30 ml PO Q4HR PRN PRN Reason: GI DISTRESS Stop: 02/22/18 17:44 Bisacodyl (Dulcolax 10 Mg Supp) 10 mg RC DAILY PRN PRN Reason: IF MOM INEFFECTIVE Stop: 02/22/18 17:44 Docusate Sodium (Colace) 100 mg PO BID [facility] Stop: 02/23/18 08:59 Last Admin: 12/27/17 16:36 Dose: 100 mg Donepezil HCl (Aricept) 5 mg PO HS [facility] Stop: 02/22/18 20:59 Last Admin: 12/26/17 20:09 Dose: 5 mg Finasteride (Proscar) 5 mg PO DAILY [facility]; Protocol Stop: 02/23/18 08:59 Last Admin: 12/27/17 08:32 Dose: 5 mg Meropenem 500 mg/ Sodium (Chloride) 100 mls @ 100 mls/hr IV Q12HR [facility] Stop: 02/25/18 08:59 Last Admin: 12/27/17 08:33 Dose: 100 mls/hr Ibuprofen (Motrin) 600 mg PO Q6H PRN PRN Reason: MODERATE PAIN Stop: 02/22/18 17:44 Magnesium Hydroxide (Milk Of Magnesia) 30 ml PO HS PRN PRN Reason: Constipation Stop: 02/22/18 17:44 Multivitamins/Vitamin C (Theragran) 1 tab PO DAILY [facility] Stop: 02/23/18 08:59 Last Admin: 12/27/17 08:33 Dose: 1 tab Mupirocin (Bactroban Oint) 1 appl NS BID [facility] Stop: 12/30/17 09:01 Last Admin: 12/27/17 16:36 Dose: 1 appl Ondansetron HCl (Zofran) 4 mg IV Q6H PRN PRN Reason: Nausea / Vomiting Stop: 02/24/18 17:01 Risperidone (Risperdal) 0.25 mg PO HS [facility]; Protocol Stop: 02/22/18 20:59 Tamsulosin HCl (Flomax) 0.4 mg PO DAILY [facility] Stop: 02/23/18 08:59 Last Admin: 12/27/17 08:32 Dose: 0.4 mg Vitamin D (Vitamin D3) 4,000 iu PO DAILY [facility] Stop: 02/23/18 08:59 Last Admin: 12/27/17 08:33 Dose: 4,000 iu General: no acute distress, well developed, well nourished HEENT: atraumatic, normocephalic, PERRLA, EOMI, moist mucous membrane Neck: supple, no thyromegaly Cardiovascular: S1S2, regular, systolic murmur Lungs: clear to auscultation bilaterally, clear to percussion Abdomen: soft, no tender, no hepatomegaly Extremities: no cyanosis, no clubbing, no edema Neurological: awake, alert, oriented Skin: intact Infectious Disease Assmt/Plan - Problem List Patient Problems: All Active Problems WEAKNESS WITH ELEVATED WBC (Acute) - Assessment Assessment: 1. UTI. 2. Dementia. 3. Dysphagia, arthritis. 4. Anemia 5. BPH. - Plan Plan: Continue meropenem 500mg IVPB q 8hrly.
--- NOTE | 2017-12-27 20:17 | Infectious Disease Prog Note ---
Infectious Disease Subjective - Review of Systems Service Date: 12/27/17 Subjective: Patient has developed fever yesterday. Infectious Disease Objective - Results Result Diagrams: 12/27/17 07:14 12/25/17 06:15 Recent Labs: Laboratory Last Values WBC 15.0 Th/cmm (4.8-10.8) H 12/27/17 07:14 RBC 3.63 Mil/cmm (3.80-5.80) L 12/27/17 07:14 Hgb 10.8 gm/dL (12-16) L 12/27/17 07:14 Hct 32.1 % (41.0-60) L 12/27/17 07:14 MCV 88.5 fl (80-99) 12/27/17 07:14 MCH 29.7 pg (27.0-31.0) 12/27/17 07:14 MCHC Differential 33.6 pg (28.0-36.0) 12/27/17 07:14 RDW 16.0 % (11.5-20.0) 12/27/17 07:14 Plt Count 243 Th/cmm (150-400) 12/27/17 07:14 MPV 7.4 fl 12/27/17 07:14 Add Manual Diff YES 12/27/17 07:14 Neutrophils % 69.2 % (40.0-80.0) 12/24/17 11:15 Band Neutrophils % 3 % (0-10) 12/27/17 07:14 Lymphocytes % 19.8 % (20.0-50.0) L 12/24/17 11:15 Monocytes % 8.4 % (2.0-10.0) 12/24/17 11:15 Eosinophils % 2.3 % (0.0-5.0) 12/24/17 11:15 Basophils % 0.3 % (0.0-2.0) 12/24/17 11:15 Neutrophils (Manual) 75 % (40-80) 12/27/17 07:14 Lymphocytes 16 % (20-50) L 12/27/17 07:14 Monocytes 6 % (2-10) 12/27/17 07:14 Eosinophils 0 % (0-5) 12/27/17 07:14 Basophils 0 % (0-3) 12/27/17 07:14 Platelet Estimate ADEQUATE (NORMAL) 12/25/17 06:15 Sodium 136 mEq/L (136-145) 12/25/17 06:15 Potassium 3.5 mEq/L (3.5-5.1) 12/25/17 06:15 Chloride 109 mEq/L (98-107) H 12/25/17 06:15 Carbon Dioxide 19.8 mEq/L (21.0-31.0) L 12/25/17 06:15 Anion Gap 10.7 (7.0-16.0) 12/25/17 06:15 BUN 22 mg/dL (7-25) 12/25/17 06:15 Creatinine 1.1 mg/dL (0.7-1.3) 12/25/17 06:15 Est GFR ( Amer) TNP 12/25/17 06:15 Est GFR (Non-Af Amer) TNP 12/25/17 06:15 BUN/Creatinine Ratio 20.0 12/25/17 06:15 Glucose 89 mg/dL (70-105) 12/25/17 06:15 Calcium 8.7 mg/dL (8.6-10.3) 12/25/17 06:15 Total Bilirubin 0.4 mg/dL (0.3-1.0) 12/25/17 06:15 AST 18 U/L (13-39) 12/25/17 06:15 ALT 24 U/L (7-52) 12/25/17 06:15 Alkaline Phosphatase 79 U/L (34-104) 12/25/17 06:15 B-Natriuretic Peptide 95.1 pg/mL (5.0-100.0) 12/26/17 06:00 Total Protein 7.1 gm/dL (6.0-8.3) 12/25/17 06:15 Albumin 2.7 gm/dL (4.2-5.5) L 12/25/17 06:15 Globulin 4.4 gm/dL 12/25/17 06:15 Albumin/Globulin Ratio 0.6 (1.0-1.8) L 12/25/17 06:15 Urine Source CATH 12/24/17 12:15 Urine Color YELLOW 12/24/17 12:15 Urine Clarity CL (CLEAR) 12/24/17 12:15 Urine pH 7.0 (4.6 - 8.0) 12/24/17 12:15 Ur Specific [place] 1.010 (1.005-1.030) 12/24/17 12:15 Urine Protein 100 mg/dL (NEGATIVE) H 12/24/17 12:15 Urine Glucose (UA) NEGATIVE mg/dL (NEGATIVE) 12/24/17 12:15 Urine Ketones NEGATIVE mg/dL (NEGATIVE) 12/24/17 12:15 Urine Blood MODERATE (NEGATIVE) H 12/24/17 12:15 Urine Nitrate NEGATIVE (NEGATIVE) 12/24/17 12:15 Urine Bilirubin NEGATIVE (NEGATIVE) 12/24/17 12:15 Urine Urobilinogen 0.2 E.U./dL (0.2 - 1.0) 12/24/17 12:15 Ur Leukocyte Esterase LARGE (NEGATIVE) H 12/24/17 12:15 Urine RBC 2-5 /hpf (0-5) H 12/24/17 12:15 Urine WBC >100 /hpf (0-5) H 12/24/17 12:15 Ur Epithelial Cells FEW /lpf (FEW) 12/24/17 12:15 Urine Bacteria MANY /hpf (NONE SEEN) H 12/24/17 12:15 - Physical Exam Vitals and I&O: Vital Signs Temp 97.5 F 12/27/17 15:45 Pulse 69 12/27/17 15:45 Resp 18 12/27/17 15:45 BP 129/61 12/27/17 15:45 Pulse Ox 98 12/27/17 15:45 Intake & Output 12/27/17 12/27/17 12/28/17 06:59 18:59 06:59 Intake Total 500 450 Balance 500 450 Weight (lbs) 55.429 kg 56.245 kg Intake: Oral 500 450 Other: # Voids 3 3 # Bowel Movements 1 1 Weight Source Bedscale Bedscale Active Medications: Current Medications Acetaminophen (Tylenol) 650 mg PO Q4HR PRN PRN Reason: MILD PAIN Stop: 02/22/18 17:44 Last Admin: 12/26/17 15:15 Dose: 650 mg Acetaminophen (Tylenol 650mg Supp) 650 mg RC Q6H PRN PRN Reason: Fever >101 Stop: 02/24/18 17:08 Al Hydrox/Mg Hydrox/Simethicone (Maalox) 30 ml PO Q4HR PRN PRN Reason: GI DISTRESS Stop: 02/22/18 17:44 Bisacodyl (Dulcolax 10 Mg Supp) 10 mg RC DAILY PRN PRN Reason: IF MOM INEFFECTIVE Stop: 02/22/18 17:44 Docusate Sodium (Colace) 100 mg PO BID [facility] Stop: 02/23/18 08:59 Last Admin: 12/27/17 16:36 Dose: 100 mg Donepezil HCl (Aricept) 5 mg PO HS [facility] Stop: 02/22/18 20:59 Last Admin: 12/26/17 20:09 Dose: 5 mg Finasteride (Proscar) 5 mg PO DAILY [facility]; Protocol Stop: 02/23/18 08:59 Last Admin: 12/27/17 08:32 Dose: 5 mg Meropenem 500 mg/ Sodium (Chloride) 100 mls @ 100 mls/hr IV Q12HR [facility] Stop: 02/25/18 08:59 Last Admin: 12/27/17 08:33 Dose: 100 mls/hr Ibuprofen (Motrin) 600 mg PO Q6H PRN PRN Reason: MODERATE PAIN Stop: 02/22/18 17:44 Magnesium Hydroxide (Milk Of Magnesia) 30 ml PO HS PRN PRN Reason: Constipation Stop: 02/22/18 17:44 Multivitamins/Vitamin C (Theragran) 1 tab PO DAILY [facility] Stop: 02/23/18 08:59 Last Admin: 12/27/17 08:33 Dose: 1 tab Mupirocin (Bactroban Oint) 1 appl NS BID [facility] Stop: 12/30/17 09:01 Last Admin: 12/27/17 16:36 Dose: 1 appl Ondansetron HCl (Zofran) 4 mg IV Q6H PRN PRN Reason: Nausea / Vomiting Stop: 02/24/18 17:01 Risperidone (Risperdal) 0.25 mg PO HS [facility]; Protocol Stop: 02/22/18 20:59 Tamsulosin HCl (Flomax) 0.4 mg PO DAILY [facility] Stop: 02/23/18 08:59 Last Admin: 12/27/17 08:32 Dose: 0.4 mg Vitamin D (Vitamin D3) 4,000 iu PO DAILY [facility] Stop: 02/23/18 08:59 Last Admin: 12/27/17 08:33 Dose: 4,000 iu General: no acute distress, well developed, well nourished HEENT: atraumatic, normocephalic, PERRLA, EOMI Neck: supple, no thyromegaly Cardiovascular: S1S2, regular Lungs: clear to auscultation bilaterally, clear to percussion Abdomen: soft, no tender Extremities: no cyanosis, no clubbing, no edema Neurological: awake, alert Infectious Disease Assmt/Plan - Problem List Patient Problems: All Active Problems WEAKNESS WITH ELEVATED WBC (Acute) - Assessment Assessment: 1. Sepsis 2/2 UTI. 2. UTI. 3. Dysphagia, arthritis. 4. Anemia 5. BPH. 6. Dementia - Plan Plan: Continue meropenem 500mg IVPB q 8hrly.
[2017-12-28] MEDS: Vitamin D3 2,000 IU SGL PO SCH (09:00)
[2017-12-28] MEDS: Meropenem 500 mg in NS 0.9% 100 ML IV SCH (09:01)
[2017-12-28] MEDS: Multivitamin Tab PO SCH (09:01)
--- NOTE | 2017-12-28 12:03 | Infectious Disease Prog Note ---
Infectious Disease Subjective - Review of Systems Service Date: 12/28/17 Subjective: Patient has developed fever yesterday. Infectious Disease Objective - Results Result Diagrams: 12/27/17 07:14 12/25/17 06:15 Recent Labs: Laboratory Last Values WBC 15.0 Th/cmm (4.8-10.8) H 12/27/17 07:14 RBC 3.63 Mil/cmm (3.80-5.80) L 12/27/17 07:14 Hgb 10.8 gm/dL (12-16) L 12/27/17 07:14 Hct 32.1 % (41.0-60) L 12/27/17 07:14 MCV 88.5 fl (80-99) 12/27/17 07:14 MCH 29.7 pg (27.0-31.0) 12/27/17 07:14 MCHC Differential 33.6 pg (28.0-36.0) 12/27/17 07:14 RDW 16.0 % (11.5-20.0) 12/27/17 07:14 Plt Count 243 Th/cmm (150-400) 12/27/17 07:14 MPV 7.4 fl 12/27/17 07:14 Add Manual Diff YES 12/27/17 07:14 Neutrophils % 69.2 % (40.0-80.0) 12/24/17 11:15 Band Neutrophils % 3 % (0-10) 12/27/17 07:14 Lymphocytes % 19.8 % (20.0-50.0) L 12/24/17 11:15 Monocytes % 8.4 % (2.0-10.0) 12/24/17 11:15 Eosinophils % 2.3 % (0.0-5.0) 12/24/17 11:15 Basophils % 0.3 % (0.0-2.0) 12/24/17 11:15 Neutrophils (Manual) 75 % (40-80) 12/27/17 07:14 Lymphocytes 16 % (20-50) L 12/27/17 07:14 Monocytes 6 % (2-10) 12/27/17 07:14 Eosinophils 0 % (0-5) 12/27/17 07:14 Basophils 0 % (0-3) 12/27/17 07:14 Platelet Estimate ADEQUATE (NORMAL) 12/25/17 06:15 Sodium 136 mEq/L (136-145) 12/25/17 06:15 Potassium 3.5 mEq/L (3.5-5.1) 12/25/17 06:15 Chloride 109 mEq/L (98-107) H 12/25/17 06:15 Carbon Dioxide 19.8 mEq/L (21.0-31.0) L 12/25/17 06:15 Anion Gap 10.7 (7.0-16.0) 12/25/17 06:15 BUN 22 mg/dL (7-25) 12/25/17 06:15 Creatinine 1.1 mg/dL (0.7-1.3) 12/25/17 06:15 Est GFR ( Amer) TNP 12/25/17 06:15 Est GFR (Non-Af Amer) TNP 12/25/17 06:15 BUN/Creatinine Ratio 20.0 12/25/17 06:15 Glucose 89 mg/dL (70-105) 12/25/17 06:15 Calcium 8.7 mg/dL (8.6-10.3) 12/25/17 06:15 Total Bilirubin 0.4 mg/dL (0.3-1.0) 12/25/17 06:15 AST 18 U/L (13-39) 12/25/17 06:15 ALT 24 U/L (7-52) 12/25/17 06:15 Alkaline Phosphatase 79 U/L (34-104) 12/25/17 06:15 B-Natriuretic Peptide 95.1 pg/mL (5.0-100.0) 12/26/17 06:00 Total Protein 7.1 gm/dL (6.0-8.3) 12/25/17 06:15 Albumin 2.7 gm/dL (4.2-5.5) L 12/25/17 06:15 Globulin 4.4 gm/dL 12/25/17 06:15 Albumin/Globulin Ratio 0.6 (1.0-1.8) L 12/25/17 06:15 Urine Source CATH 12/24/17 12:15 Urine Color YELLOW 12/24/17 12:15 Urine Clarity CL (CLEAR) 12/24/17 12:15 Urine pH 7.0 (4.6 - 8.0) 12/24/17 12:15 Ur Specific [place] 1.010 (1.005-1.030) 12/24/17 12:15 Urine Protein 100 mg/dL (NEGATIVE) H 12/24/17 12:15 Urine Glucose (UA) NEGATIVE mg/dL (NEGATIVE) 12/24/17 12:15 Urine Ketones NEGATIVE mg/dL (NEGATIVE) 12/24/17 12:15 Urine Blood MODERATE (NEGATIVE) H 12/24/17 12:15 Urine Nitrate NEGATIVE (NEGATIVE) 12/24/17 12:15 Urine Bilirubin NEGATIVE (NEGATIVE) 12/24/17 12:15 Urine Urobilinogen 0.2 E.U./dL (0.2 - 1.0) 12/24/17 12:15 Ur Leukocyte Esterase LARGE (NEGATIVE) H 12/24/17 12:15 Urine RBC 2-5 /hpf (0-5) H 12/24/17 12:15 Urine WBC >100 /hpf (0-5) H 12/24/17 12:15 Ur Epithelial Cells FEW /lpf (FEW) 12/24/17 12:15 Urine Bacteria MANY /hpf (NONE SEEN) H 12/24/17 12:15 - Physical Exam Vitals and I&O: Vital Signs Temp 97.6 F 12/28/17 11:45 Pulse 79 12/28/17 11:45 Resp 18 12/28/17 11:45 BP 129/66 12/28/17 11:45 Pulse Ox 97 12/28/17 11:45 Intake & Output 12/27/17 12/28/17 12/28/17 18:59 06:59 18:59 Intake Total 550 100 Balance 550 100 Weight (lbs) 56.245 kg Intake: Intake, IV Amount 100 100 Meropenem 500 mg In 100 100 Sodium Chloride 0.9% 100 ml @ 100 mls/hr IV Q12HR [facility] Rx#:[id number] Oral 450 Other: # Voids 3 # Bowel Movements 1 Weight Source Bedscale Active Medications: Current Medications Acetaminophen (Tylenol) 650 mg PO Q4HR PRN PRN Reason: MILD PAIN Stop: 02/22/18 17:44 Last Admin: 12/26/17 15:15 Dose: 650 mg Acetaminophen (Tylenol 650mg Supp) 650 mg RC Q6H PRN PRN Reason: Fever >101 Stop: 02/24/18 17:08 Al Hydrox/Mg Hydrox/Simethicone (Maalox) 30 ml PO Q4HR PRN PRN Reason: GI DISTRESS Stop: 02/22/18 17:44 Bisacodyl (Dulcolax 10 Mg Supp) 10 mg RC DAILY PRN PRN Reason: IF MOM INEFFECTIVE Stop: 02/22/18 17:44 Docusate Sodium (Colace) 100 mg PO BID [facility] Stop: 02/23/18 08:59 Last Admin: 12/28/17 09:00 Dose: 100 mg Donepezil HCl (Aricept) 5 mg PO HS [facility] Stop: 02/22/18 20:59 Last Admin: 12/27/17 21:15 Dose: 5 mg Finasteride (Proscar) 5 mg PO DAILY [facility]; Protocol Stop: 02/23/18 08:59 Last Admin: 12/28/17 09:00 Dose: 5 mg Meropenem 500 mg/ Sodium (Chloride) 100 mls @ 100 mls/hr IV Q12HR [facility] Stop: 02/25/18 08:59 Last Admin: 12/28/17 09:01 Dose: 100 mls/hr Ibuprofen (Motrin) 600 mg PO Q6H PRN PRN Reason: MODERATE PAIN Stop: 02/22/18 17:44 Magnesium Hydroxide (Milk Of Magnesia) 30 ml PO HS PRN PRN Reason: Constipation Stop: 02/22/18 17:44 Multivitamins/Vitamin C (Theragran) 1 tab PO DAILY [facility] Stop: 02/23/18 08:59 Last Admin: 12/28/17 09:01 Dose: 1 tab Mupirocin (Bactroban Oint) 1 appl NS BID [facility] Stop: 12/30/17 09:01 Last Admin: 12/28/17 09:01 Dose: 1 appl Ondansetron HCl (Zofran) 4 mg IV Q6H PRN PRN Reason: Nausea / Vomiting Stop: 02/24/18 17:01 Risperidone (Risperdal) 0.25 mg PO HS [facility]; Protocol Stop: 02/22/18 20:59 Tamsulosin HCl (Flomax) 0.4 mg PO DAILY [facility] Stop: 02/23/18 08:59 Last Admin: 12/28/17 09:01 Dose: 0.4 mg Vitamin D (Vitamin D3) 4,000 iu PO DAILY [facility] Stop: 02/23/18 08:59 Last Admin: 12/28/17 09:00 Dose: 4,000 iu Infectious Disease Assmt/Plan - Problem List Patient Problems: All Active Problems WEAKNESS WITH ELEVATED WBC (Acute) - Assessment Assessment: 1. Sepsis 2/2 UTI. 2. UTI. 3. Dysphagia, arthritis. 4. Anemia 5. BPH. 6. Dementia - Plan Plan: Continue meropenem 500mg IVPB q 8hrly.
[2017-12-28 12:28] LABS: % BASOPHILS 0.8 % (0.0-2.0); % LYMPHOCYTES 25.4 % (20.0-50.0); % MONOCYTES 10.4 % (2.0-10.0); % NEUTROPHILS 58.4 % (40.0-80.0); BASOPHILE ABSOLUTE 0.1 Th/cumm (0-0.2); EOSINOPHILE ABSOLUTE 0.3 Th/cmm (0.1-0.4); HEMATOCRIT 33.4 % (41.0-60); HEMOGLOBIN 11.1 gm/dL (12-16); LYMPHOCYTE ABSOLUTE 1.6 Th/cmm (1.5-3.0); MEAN CELL VOLUME 87.8 fl (80-99); MEAN CORPUSCULAR HEMOGLOBIN 29.1 pg (27.0-31.0); MEAN CORPUSCULAR HGB CONC 33.2 pg (28.0-36.0); MEAN PLATELET VOLUME 7.2 fl; MONOCYTE ABSOLUTE 0.7 Th/cmm (0.3-1.0); NEUTROPHILE ABSOLUTE 3.7 Th/cmm (1.8-8.0); PLATELET COUNT 277 Th/cmm (150-400); RED CELL DISTRIBUTION WIDTH 15.8 % (11.5-20.0); WHITE BLOOD COUNT 6.4 Th/cmm (4.8-10.8)
[2017-12-28] MEDS ORDERED: Probiotic Screen MC PRN (13:10)
[2017-12-28] MEDS ORDERED: Lactobacillus Rhamnosus GG 15 Billion CFU CAP.SPRINK PO SCH (14:00)
--- NOTE | 2017-12-28 14:32 | Cardiology ---
12/26/2017 PATIENT OF: Dr. Callejas. M-MODE ECHOCARDIOGRAM: Mitral valve, anterior leaflet of mitral valve shows normal excursion, EF velocity. Posterior leaflet of the mitral valve shows normal excursion. Left ventricular posterior wall shows increased thickness, normal excursion. Interventricular septum shows increased thickness, normal excursion, hypertrophy of the left ventricle, ejection fraction 62%. Left atrium normal. Aortic root shows normal dimension, normal excursion of aortic leaflets. CONCLUSION: Hypertrophy of the left ventricle, ejection fraction 62%. 2D ECHO: Long axis view showed normal sized left ventricle with hypertrophy of the left ventricle. Left atrium normal. Aortic root shows normal dimension, normal excursion of aortic leaflets. Short axis view of mitral valve normal. Short axis view of aortic valve normal. Apical four chamber view showed normal sized left ventricle with hypertrophy of the left ventricle. Left atrium normal. Right ventricular cavity, right atrium normal, no pericardial effusion. CONCLUSION: Hypertrophy of the left ventricle, ejection fraction 62%. Doppler study shows trace mitral regurgitation, trace tricuspid regurgitation, right ventricular systolic pressure of 36 mmHg. CONCLUSION: Trace mitral regurgitation, trace tricuspid regurgitation, hypertrophy of the left ventricle. JOB# [id number]
--- NOTE | 2017-12-28 15:30 | General Progress Note ---
Subjective - Review of Systems Events since last encounter: awake in no distress Objective - Results Result Diagrams: 12/28/17 12:22 12/25/17 06:15 Recent Labs: Laboratory Last Values WBC 6.4 Th/cmm (4.8-10.8) 12/28/17 12:22 RBC 3.80 Mil/cmm (3.80-5.80) 12/28/17 12:22 Hgb 11.1 gm/dL (12-16) L 12/28/17 12:22 Hct 33.4 % (41.0-60) L 12/28/17 12:22 MCV 87.8 fl (80-99) 12/28/17 12:22 MCH 29.1 pg (27.0-31.0) 12/28/17 12: MCHC Differential 33.2 pg (28.0-36.0) 12/28/17 12:22 RDW 15.8 % (11.5-20.0) 12/28/17 12:22 Plt Count 277 Th/cmm (150-400) 12/28/17 12:22 MPV 7.2 fl 12/28/17 12:22 Add Manual Diff YES 12/27/17 07:14 Neutrophils % 58.4 % (40.0-80.0) 12/28/17 12:22 Band Neutrophils % 3 % (0-10) 12/27/17 07:14 Lymphocytes % 25.4 % (20.0-50.0) 12/28/17 12:22 Monocytes % 10.4 % (2.0-10.0) H 12/28/17 12:22 Eosinophils % 5.0 % (0.0-5.0) 12/28/17 12:22 Basophils % 0.8 % (0.0-2.0) 12/28/17 12:22 Neutrophils (Manual) 75 % (40-80) 12/27/17 07:14 Lymphocytes 16 % (20-50) L 12/27/17 07:14 Monocytes 6 % (2-10) 12/27/17 07:14 Eosinophils 0 % (0-5) 12/27/17 07:14 Basophils 0 % (0-3) 12/27/17 07:14 Platelet Estimate ADEQUATE (NORMAL) 12/25/17 06:15 Sodium 136 mEq/L (136-145) 12/25/17 06:15 Potassium 3.5 mEq/L (3.5-5.1) 12/25/17 06:15 Chloride 109 mEq/L (98-107) H 12/25/17 06:15 Carbon Dioxide 19.8 mEq/L (21.0-31.0) L 12/25/17 06:15 Anion Gap 10.7 (7.0-16.0) 12/25/17 06:15 BUN 22 mg/dL (7-25) 12/25/17 06:15 Creatinine 1.1 mg/dL (0.7-1.3) 12/25/17 06:15 Est GFR ( Amer) TNP 12/25/17 06:15 Est GFR (Non-Af Amer) TNP 12/25/17 06:15 BUN/Creatinine Ratio 20.0 12/25/17 06:15 Glucose 89 mg/dL (70-105) 12/25/17 06:15 Calcium 8.7 mg/dL (8.6-10.3) 12/25/17 06:15 Total Bilirubin 0.4 mg/dL (0.3-1.0) 12/25/17 06:15 AST 18 U/L (13-39) 12/25/17 06:15 ALT 24 U/L (7-52) 12/25/17 06:15 Alkaline Phosphatase 79 U/L (34-104) 12/25/17 06:15 B-Natriuretic Peptide 95.1 pg/mL (5.0-100.0) 12/26/17 06:00 Total Protein 7.1 gm/dL (6.0-8.3) 12/25/17 06:15 Albumin 2.7 gm/dL (4.2-5.5) L 12/25/17 06:15 Globulin 4.4 gm/dL 12/25/17 06:15 Albumin/Globulin Ratio 0.6 (1.0-1.8) L 12/25/17 06:15 Urine Source CATH 12/24/17 12:15 Urine Color YELLOW 12/24/17 12:15 Urine Clarity CL (CLEAR) 12/24/17 12:15 Urine pH 7.0 (4.6 - 8.0) 12/24/17 12:15 Ur Specific [place] 1.010 (1.005-1.030) 12/24/17 12:15 Urine Protein 100 mg/dL (NEGATIVE) H 12/24/17 12:15 Urine Glucose (UA) NEGATIVE mg/dL (NEGATIVE) 12/24/17 12:15 Urine Ketones NEGATIVE mg/dL (NEGATIVE) 12/24/17 12:15 Urine Blood MODERATE (NEGATIVE) H 12/24/17 12:15 Urine Nitrate NEGATIVE (NEGATIVE) 12/24/17 12:15 Urine Bilirubin NEGATIVE (NEGATIVE) 12/24/17 12:15 Urine Urobilinogen 0.2 E.U./dL (0.2 - 1.0) 12/24/17 12:15 Ur Leukocyte Esterase LARGE (NEGATIVE) H 12/24/17 12:15 Urine RBC 2-5 /hpf (0-5) H 12/24/17 12:15 Urine WBC >100 /hpf (0-5) H 12/24/17 12:15 Ur Epithelial Cells FEW /lpf (FEW) 12/24/17 12:15 Urine Bacteria MANY /hpf (NONE SEEN) H 12/24/17 12:15 - Physical Exam Vitals and I&O: Vital Signs Temp 97.6 F 12/28/17 11:45 Pulse 79 12/28/17 11:45 Resp 18 12/28/17 12:00 BP 129/66 12/28/17 11:45 Pulse Ox 97 12/28/17 11:45 Intake & Output 12/27/17 12/28/17 12/28/17 18:59 06:59 18:59 Intake Total 550 100 100 Balance 550 100 100 Weight (lbs) 56.245 kg 56.245 kg Intake: Intake, IV Amount 100 100 100 Meropenem 500 mg In 100 100 100 Sodium Chloride 0.9% 100 ml @ 100 mls/hr IV Q12HR [facility] Rx#:[id number] Oral 450 Other: # Voids 3 # Bowel Movements 1 Weight Source Bedscale Bedscale Active Medications: Current Medications Acetaminophen (Tylenol) 650 mg PO Q4HR PRN PRN Reason: MILD PAIN Stop: 02/22/18 17:44 Last Admin: 12/26/17 15:15 Dose: 650 mg Acetaminophen (Tylenol 650mg Supp) 650 mg RC Q6H PRN PRN Reason: Fever >101 Stop: 02/24/18 17:08 Al Hydrox/Mg Hydrox/Simethicone (Maalox) 30 ml PO Q4HR PRN PRN Reason: GI DISTRESS Stop: 02/22/18 17:44 Bisacodyl (Dulcolax 10 Mg Supp) 10 mg RC DAILY PRN PRN Reason: IF MOM INEFFECTIVE Stop: 02/22/18 17:44 Docusate Sodium (Colace) 100 mg PO BID HELENE Stop: 02/23/18 08:59 Last Admin: 12/28/17 09:00 Dose: 100 mg Donepezil HCl (Aricept) 5 mg PO HS HELENE Stop: 02/22/18 20:59 Last Admin: 12/27/17 21:15 Dose: 5 mg Finasteride (Proscar) 5 mg PO DAILY [facility]; Protocol Stop: 02/23/18 08:59 Last Admin: 12/28/17 09:00 Dose: 5 mg Meropenem 500 mg/ Sodium (Chloride) 100 mls @ 100 mls/hr IV Q12HR HELENE Stop: 02/25/18 08:59 Last Infusion: 12/28/17 10:01 Dose: Infused Ibuprofen (Motrin) 600 mg PO Q6H PRN PRN Reason: MODERATE PAIN Stop: 02/22/18 17:44 Lactobacillus Rhamnosus (Culturelle 15b) 1 each PO DAILY [facility] Stop: 02/26/18 13:59 Magnesium Hydroxide (Milk Of Magnesia) 30 ml PO HS PRN PRN Reason: Constipation Stop: 02/22/18 17:44 Miscellaneous (Probiotic Screen) 1 ea MC PRN PRN PRN Reason: PROTOCOL Stop: 02/26/18 13:09 Multivitamins/Vitamin C (Theragran) 1 tab PO DAILY HELENE Stop: 02/23/18 08:59 Last Admin: 12/28/17 09:01 Dose: 1 tab Mupirocin (Bactroban Oint) 1 appl NS BID HELENE Stop: 12/30/17 09:01 Last Admin: 12/28/17 09:01 Dose: 1 appl Ondansetron HCl (Zofran) 4 mg IV Q6H PRN PRN Reason: Nausea / Vomiting Stop: 02/24/18 17:01 Risperidone (Risperdal) 0.25 mg PO HS HELENE; Protocol Stop: 02/22/18 20:59 Tamsulosin HCl (Flomax) 0.4 mg PO DAILY [facility] Stop: 02/23/18 08:59 Last Admin: 12/28/17 09:01 Dose: 0.4 mg Vitamin D (Vitamin D3) 4,000 iu PO DAILY [facility] Stop: 02/23/18 08:59 Last Admin: 12/28/17 09:00 Dose: 4,000 iu General: No acute distress HEENT: Atraumatic Neck: Supple Cardiovascular: Regular rate, Normal S1 Assessment/Plan - Problem List Patient Problems: All Active Problems WEAKNESS WITH ELEVATED WBC (Acute)
--- NOTE | 2018-01-12 11:50 | Discharge Summary ---
DATE OF DISCHARGE: 12/28/2017 The patient came to the hospital from [facility]. The patient is very well known to me. The patient has a history of CVA in the past, history of dementia, who came in with ____ sepsis, leukocytosis, ____. The patient was given IV antibiotics, Cardiology and infectious disease consult was ____. The patient improved. The patient was in stable condition at the time of discharge. The patient will be sent back to ____. CONDITION AT THE TIME OF DICHARGE: Stable. MEDICATIONS: Please see medication reconciliation sheet. JOB# [id number]
== END 2017-12-28 17:36 | DRG 871 ==
LOC: ER 11:05 → MSI 14:27 → TELE 16:34
PROVIDERS: ADMIT Internal Medicine; ATTEND Internal Medicine
DX: A41.9 Sepsis, unspecified organism (principal); J18.9 Pneumonia, unspecified organism; N39.0 Urinary tract infection, site not specified; M19.90 Unspecified osteoarthritis, unspecified site; F03.90 Unspecified dementia, unspecified severity, without behavioral disturbance, psychotic disturbance, mood disturbance, and anxiety; N40.0 Benign prostatic hyperplasia without lower urinary tract symptoms; F32.9 Major depressive disorder, single episode, unspecified; I50.9 Heart failure, unspecified; E55.9 Vitamin D deficiency, unspecified; F41.9 Anxiety disorder, unspecified; R13.10 Dysphagia, unspecified; D64.9 Anemia, unspecified; F29 Unspecified psychosis not due to a substance or known physiological condition; D50.9 Iron deficiency anemia, unspecified
CPT/HCPCS: 36415-UA; 71045-TC; 80048-TC; 80053-TC; 81001-TC; 83880-TC; 85007-TC; 85025-TC; 87086-90; 93005; 94760; 96374; J0696; J1956; J2185; J2543; Z7610

== ENCOUNTER 2018-01-07 22:49 | Inpatient (IN) | payer MEDICARE ==
--- NOTE | 2018-01-07 23:07 | ED Physician Chart ---
ED Chief Complaint/HPI - Patient Information Date Seen:: 01/07/18 Time Seen:: 22:50 Chief Complaint:: coffee-ground emesis History of Present Illness:: Patient reportedly had 3 times coffee-ground emesis tonight. He is a poor historian apparently does not remember the incident. Allergies:: Allergies Allergy/AdvReac Type Severity Reaction Status Date / Time No Known Allergies Allergy Verified 11/13/17 16:17 Vitals:: Vital Signs - 8 hr 01/07/18 22:52 Temp 97.3 F HR 85 RR 16 BP 101/65 O2 Sat % 100 Historian:: Patient Review:: Transfer documents Reviewed ED Review of Systems - Review of Systems General/Constitutional: No fever, No chills Skin: No skin lesions Head: No headache Eyes: No loss of vision ENT: Earache Neck: No neck pain Cardio Vascular: No chest pain, No palpitations Pulmonary: No SOB GI: Vomiting G/U: No dysuria Musculoskeletal: No bone or joint pain Endocrine: No polyuria Psychiatric: Depression Hematopoietic: No bruising Neurological: No syncope ED Past Medical History - Past Medical History Past Medical History: Dementia, Other (dysphagia; anxiety; anemia; benign prostatic hypertrophy ) Family History: Other (unavailable) Social History: Care Facility Surgical History: other (unavailable) Psychiatricy History: Depression, Dementia Family Medical History - Family Member Mother History Unknown: Yes Ethnicity: Non- Living Status: Hx Family Cancer: (UNKNOWN) Hx Family Coronary Artery Disease: (UNKNOWN) Hx Family Congestive Heart Failure: (UNKNOWN) Hx Family Hypertension: (UNKNOWN) Hx Family Stroke: (UNKNOWN) Hx Family Diabetes: (UNKNOWN) Hx Family Seizures: (UNKNOWN) Hx Family Dementia: (UNKNOWN) Hx Family AIDS: (UNKNOWN) Hx Family HIV: No Hx Family COPD: (UNKNOWN) Hx Family Hepatitis: (UNKNOWN) Hx Family Psychiatric Problems: (UNKNOWN) Hx Family Tuberculosis: (UNKNOWN) ED Physical Exam - Physical Examination General/Constitutional: Awake, Well-developed, well-nourished Other Gen/Cons comments:: Chronically ill-appearing; poor historian Head: Atraumatic Eyes: Lids, conjuctiva normal Other Eyes comments:: Cardia left eye is opaque Skin: Nl inspection ENMT: External ears, nose nl, Nasal exam nl Other ENMT comments:: Edentulous Neck: No nuchal rigidity Respiratory: Nl effort/Exclusion Cardio Vascular: RRR, No murmur, gallop, rubs GI: No tenderness/rebounding/guarding : No CVA tenderness Extremities: Normal digits & nails ED Labs/Radiology/EKG Results - Lab Results Results: Laboratory Results - last 24 hr 01/07/18 01/07/18 01/07/18 23:00 23:00 23:00 WBC 11.1 H RBC 3.42 L Hgb 10.0 L Hct 29.7 L MCV 86.8 MCH 29.2 MCHC Differential 33.6 RDW 16.0 Plt Count 380 MPV 7.2 Neutrophils % 80.8 H Lymphocytes % 10.5 L Monocytes % 7.8 Eosinophils % 0.5 Basophils % 0.4 PT 11.2 INR 1.08 PTT (Actin FS) 28.7 Sodium 128 L Potassium 3.6 Chloride 97 L Carbon Dioxide 23.7 Anion Gap 10.9 BUN 50 H Creatinine 1.1 Est GFR ( Amer) TNP Est GFR (Non-Af Amer) TNP BUN/Creatinine Ratio 45.5 Glucose 147 H Calcium 8.8 ED Assessment - Assessment General Assessment: With a BUN of 50 patient must have had a GI bleed ED Septic Shock - . Is Septic Shock (SBP<90, OR Lactate>4 mmol\L) present?: No - <6hrs of presentation: Vital Signs: Vital Signs - 8 hr 01/07/18 22:52 Temp 97.3 F HR 85 RR 16 BP 101/65 O2 Sat % 100 ED Reassessment (Disposition) - Reassessment Reassessment Condition:: Unchanged - Diagnosis Diagnosis:: Coffee-ground emesis; upper GI bleed; dementia; anemia - Patient Disposition Admitted to:: Telemetry Spoke to:: Casey Callejas Admitting Medical Physician:: Casey Callejas Condition at Disposition:: Stable, Unchanged
[2018-01-07 23:13] LABS: % BASOPHILS 0.4 % (0.0-2.0); % EOSINOPHILS 0.5 % (0.0-5.0); % LYMPHOCYTES 10.5 % (20.0-50.0); % MONOCYTES 7.8 % (2.0-10.0); % NEUTROPHILS 80.8 % (40.0-80.0); EOSINOPHILE ABSOLUTE 0.1 Th/cmm (0.1-0.4); HEMATOCRIT 29.7 % (41.0-60); LYMPHOCYTE ABSOLUTE 1.2 Th/cmm (1.5-3.0); MEAN CELL VOLUME 86.8 fl (80-99); MEAN CORPUSCULAR HEMOGLOBIN 29.2 pg (27.0-31.0); MEAN CORPUSCULAR HGB CONC 33.6 pg (28.0-36.0); MEAN PLATELET VOLUME 7.2 fl; MONOCYTE ABSOLUTE 0.9 Th/cmm (0.3-1.0); NEUTROPHILE ABSOLUTE 8.9 Th/cmm (1.8-8.0); PLATELET COUNT 380 Th/cmm (150-400); RED BLOOD COUNT 3.42 Mil/cmm (3.80-5.80); WHITE BLOOD COUNT 11.1 Th/cmm (4.8-10.8)
[2018-01-07 23:24] LABS: INR 1.08 (0.5-1.4); PROTHROMBIN TIME (TEST) 11.2 SECONDS (9.5-11.5)
[2018-01-07 23:28] LABS: ANION GAP 10.9 (7.0-16.0); BUN - UREA NITROGEN 50 mg/dL (7-25); CALCIUM SERUM 8.8 mg/dL (8.6-10.3); CARBON DIOXIDE 23.7 mEq/L (21.0-31.0); CHLORIDE 97 mEq/L (98-107); CREATININE - SERUM 1.1 mg/dL (0.7-1.3); GLUCOSE 147 mg/dL (70-105); POTASSIUM SERUM 3.6 mEq/L (3.5-5.1); SODIUM SERUM 128 mEq/L (136-145)
[2018-01-07] MEDS ORDERED: Sodium Chloride 0.9% 1,000 ML IV ONE (23:34)
[2018-01-08] MEDS: Sodium Chloride 0.9% 1,000 ML IV SCH ×2 (02:04→18:00)
[2018-01-08] MEDS ORDERED: VTE Chemical Prophylaxis Screen/Admission MC PRN (09:51)
[2018-01-08] MEDS ORDERED: Maalox 30 mL Cup PO PRN (12:54)
[2018-01-08] MEDS ORDERED: Magnesium Hydroxide (MOM) 30 mL UDC PO PRN (12:54)
--- NOTE | 2018-01-08 13:14 | Consultation ---
Consult Note - Consult Note Service Date: 01/08/18 Referring Physician: Casey Callejas Consult Note: PHYSICIAN Consultation Note: Date of Admission: 01/08/18 Purpose of Consultation: Leukocytosis Chief Complaint: Patient AIDEE HELLER was admitted to [facility] with UPPER GI BLEED. History of Present Illness: 77-year-old male with a past medical history of Dementia, depression, BPH brought in from nursing facility for evaluation for his coffee-ground emesis. On initial evaluation patient's progressive 111,700. ID consult was called for leukocytosis. So patient has no fever. Chest x-ray revealed right lower lobe increased markings consistent with the scarring. No focal process. No fever no chills. On initial evaluation his temperature was 97.3F. Past Medical History: Dementia, depression, BPH Allergies Allergy/AdvReac Type Severity Reaction Status Date / Time No Known Allergies Allergy Verified 11/13/17 16:17 Vital Signs Temp 97.3 F 01/08/18 12:00 Pulse 72 01/08/18 12:00 Resp 18 01/08/18 12:00 BP 93/58 01/08/18 12:00 Pulse Ox 100 01/08/18 12:00 Intake & Output 01/07/18 01/08/18 01/08/18 18:59 06:59 18:59 Intake Total 1000 Balance 1000 Weight (lbs) 54.431 kg Intake: Intake, IV Amount 1000 Sodium Chloride 0.9% 1, 1000 000 ml @ Wide Open IV . Q0M ONE Rx#:[id number] Other: Weight Source Estimated Laboratory Results - last 24 hr 01/07/18 01/07/18 01/07/18 23:00 23:00 23:00 WBC 11.1 H RBC 3.42 L Hgb 10.0 L Hct 29.7 L MCV 86.8 MCH 29.2 MCHC Differential 33.6 RDW 16.0 Plt Count 380 MPV 7.2 Neutrophils % 80.8 H Lymphocytes % 10.5 L Monocytes % 7.8 Eosinophils % 0.5 Basophils % 0.4 PT 11.2 INR 1.08 PTT (Actin FS) 28.7 Sodium 128 L Potassium 3.6 Chloride 97 L Carbon Dioxide 23.7 Anion Gap 10.9 BUN 50 H Creatinine 1.1 Est GFR ( Amer) TNP Est GFR (Non-Af Amer) TNP BUN/Creatinine Ratio 45.5 Glucose 147 H Calcium 8.8 Home Medication Medication Instructions Recorded Type Al Hyd/Mg Hyd/Simethicone [Maalox] 30 ml PO Q4HR PRN udc 11/24/17 Rx Cholecalciferol (Vitamin D3) 4,000 iu PO DAILY sgl 11/24/17 Rx [Vitamin D3] Docusate Sodium [Colace] 100 mg PO BID cap 11/24/17 Rx Donepezil Hcl [Aricept] 5 mg PO HS tab 11/24/17 Rx Finasteride [Proscar*] 5 mg PO DAILY tab 11/24/17 Rx Ibuprofen [Motrin*] 600 mg PO Q6H PRN tab 11/24/17 Rx Magnesium Hydroxide [Milk of 30 ml PO HS PRN udc 11/24/17 Rx Magnesia] Multivitamin [Theragran] 1 tab PO DAILY tab 11/24/17 Rx Tamsulosin [Flomax] 0.4 mg PO DAILY cap 11/24/17 Rx risperiDONE [RisperDAL] 0.25 mg PO HS tab 11/24/17 Rx Acetaminophen [Tylenol] 650 mg PO Q4HR PRN 12/24/17 History Bisacodyl [Dulcolax 10 Mg Supp] 10 mg RC DAILY PRN 12/24/17 History Current Medications Generic Name Dose Route Start Last Admin Trade Name Freq PRN Reason Stop Dose Admin Acetaminophen 650 mg 01/08/18 12:54 Tylenol PO 03/09/18 12:53 Q4HR PRN MILD PAIN Al Hydrox/Mg Hydrox/Simethicone 30 ml 01/08/18 12:54 Maalox PO 03/09/18 12:53 Q4HR PRN GI DISTRESS Bisacodyl 10 mg 01/08/18 12:54 Dulcolax 10 Mg Supp RC 03/09/18 12:53 DAILY PRN IF MOM INEFFECTIVE Docusate Sodium 100 mg 01/08/18 17:00 Colace PO 03/09/18 16:59 BID HELENE Donepezil HCl 5 mg 01/08/18 21:00 Aricept PO 03/09/18 20:59 HS HELENE Finasteride 5 mg 01/09/18 09:00 Proscar PO 03/10/18 08:59 DAILY HELENE Protocol Sodium Chloride 1,000 mls @ 60 mls/hr 01/08/18 02:00 01/08/18 02:04 Nacl 0.9% IV 03/09/18 01:59 60 mls/hr .[id number] HELENE Administration Ibuprofen 600 mg 01/08/18 12:54 Motrin PO 03/09/18 12:53 Q6H PRN MODERATE PAIN Magnesium Hydroxide 30 ml 01/08/18 12:54 Milk Of Magnesia PO 03/09/18 12:53 HS PRN Constipation Miscellaneous 1 ea 01/08/18 09:51 Vte Chemical Prophylaxis Screen/ Admission 03/09/18 09:50 PRN PRN PROTOCOL Multivitamins/Vitamin C 1 tab 01/09/18 09:00 Theragran PO 03/10/18 08:59 DAILY HELENE Pantoprazole Sodium 40 mg 01/08/18 09:45 01/08/18 10:11 Protonix IVP 03/09/18 09:44 40 mg BID HELENE Administration Risperidone 0.25 mg 01/08/18 21:00 Risperdal PO 03/09/18 20:59 HS HELENE Protocol Tamsulosin HCl 0.4 mg 01/09/18 09:00 Flomax PO 03/10/18 08:59 DAILY HELENE Vitamin D 4,000 iu 01/09/18 09:00 Vitamin D3 PO 03/10/18 08:59 DAILY HELENE Review of Systems: A 12 point ROS was reviewed with the pertinent positive and negatives noted in the HPI. Social History Smoking Status Former smoker Drug Use No Alcohol Use No Family Medical History Family Medical History Start: 01/08/18 01: 19 Freq: ONCE Status: Active Protocol: Document 01/08/18 01:35 [email or web address] (Rec: 01/08/18 03:55 [email or web address] [id number] ) Family Medical History Mother History Unknown Yes Physical Exam: General: Comfortable, not in acute distress. HEENT: Head: NT NC. Oral: Moist, pink tongue. Eyes: Left corneal opacity Neck: Supple, no JVD noted to be. Cardio: S1 and S2 within normal with regular rhythm Respiratory: Vesicular breath sound no crackles no wheezing. Abdominal: Soft, nontender nondistended bowel sounds present Genital/Urinary: Deferred Extremities: No cyanosis no clubbing or edema Neurological: Neurologically alert and awake. Assessment: 1. Leukocytosis improved. 2. Hematemesis. 3. Dementia. 4. Depression. 5. BPH. Plan: Continue current treatment. Layo Garcia M.D. [id number]
[2018-01-08 16:20] LABS: % BASOPHILS 2.7 % (0.0-2.0); % EOSINOPHILS 2.2 % (0.0-5.0); % LYMPHOCYTES 24.3 % (20.0-50.0); % MONOCYTES 7.8 % (2.0-10.0); BASOPHILE ABSOLUTE 0.2 Th/cumm (0-0.2); EOSINOPHILE ABSOLUTE 0.1 Th/cmm (0.1-0.4); HEMATOCRIT 30.6 % (41.0-60); HEMOGLOBIN 10.3 gm/dL (12-16); LYMPHOCYTE ABSOLUTE 1.5 Th/cmm (1.5-3.0); MEAN CELL VOLUME 86.7 fl (80-99); MEAN CORPUSCULAR HEMOGLOBIN 29.1 pg (27.0-31.0); MEAN CORPUSCULAR HGB CONC 33.6 pg (28.0-36.0); MEAN PLATELET VOLUME 7.3 fl; MONOCYTE ABSOLUTE 0.5 Th/cmm (0.3-1.0); NEUTROPHILE ABSOLUTE 3.7 Th/cmm (1.8-8.0); PLATELET COUNT 369 Th/cmm (150-400); RED BLOOD COUNT 3.53 Mil/cmm (3.80-5.80); RED CELL DISTRIBUTION WIDTH 16.1 % (11.5-20.0)
[2018-01-08 16:26] LABS: ALB/GLOB RATIO 0.7 (1.0-1.8); ALBUMIN 3.1 gm/dL (4.2-5.5); ALKALINE PHOSPHATASE 243 U/L (34-104); ANION GAP 9.5 (7.0-16.0); BILIRUBIN,TOTAL 1.3 mg/dL (0.3-1.0); BUN - UREA NITROGEN 36 mg/dL (7-25); CALCIUM SERUM 8.9 mg/dL (8.6-10.3); CARBON DIOXIDE 21.5 mEq/L (21.0-31.0); CHLORIDE 104 mEq/L (98-107); GLUCOSE 141 mg/dL (70-105); SGOT 64 U/L (13-39); SGPT/ALT 115 U/L (7-52); SODIUM SERUM 131 mEq/L (136-145); TOTAL PROTEIN,SERUM 7.5 gm/dL (6.0-8.3)
[2018-01-08 16:29] LABS: PROTHROMBIN TIME (TEST) 10.4 SECONDS (9.5-11.5)
--- NOTE | 2018-01-08 17:13 | History & Physical ---
ADMIT DATE: 01/08/2018 DICTATED FOR: Dr. Callejas. CHIEF COMPLAINT: Coffee-ground emesis. HISTORY OF PRESENT ILLNESS: This is a 77-year-old -[place] male who is a [facility] resident who has a 1-day history of coffee-ground emesis, unable to obtain any meaningful history from the patient. The patient is a very poor historian. The patient was recently discharged from this hospital. The patient was admitted here on 12/25/2017 due to leukocytosis with a white count of 21,000. The patient was treated for sepsis. PAST MEDICAL HISTORY: Arthritis, dementia, psychosis, dysphagia, anxiety, anemia, BPH, depression, and vitamin D deficiency. FAMILY HISTORY: Noncontributory. SOCIAL HISTORY: The patient is a [facility] resident, requiring 24-hour nursing care. PAST SURGICAL HISTORY: None. ALLERGIES: No drug allergies. MEDICATIONS: Please see medication list. REVIEW OF SYSTEMS: Unable to obtain at this time. PHYSICAL EXAMINATION: GENERAL: Elderly male, awake, alert with some confusion. No apparent distress. VITAL SIGNS: Temperature 97.3, heart rate 72, blood pressure 93/58, respirations 18, and O2 100%. HEENT: Head; normocephalic, atraumatic. NECK: Supple. No mass. LUNGS: Clear bilaterally. CARDIOVASCULAR: Regular rate and rhythm. ABDOMEN: Soft, nontender, nondistended. LABORATORY DATA: WBC 11.1, H and H 10.0 and 29.7, and platelet of 380. Sodium 128, potassium 3.6, chloride 97, BUN 50, and creatinine 1.1. ASSESSMENT: Possible upper gastrointestinal bleed, leukocytosis, anemia, acute renal insufficiency, rule out acute dehydration, arthritis, dementia, psychosis, dysphagia, anxiety, anemia, benign prostatic hypertrophy, depression, vitamin D deficiency. PLAN: We will admit the patient to telemetry unit. We will get GI consultation on the case. We will have Protonix 40 mg IV push b.i.d. We will get followup labs from our tomorrow morning. We will monitor the patient's H and H closely. Keep the patient on IV fluids for hydration. We will monitor the patient's BUN and creatinine closely. If the patient's BUN and creatinine is not improved with IV hydration, we will consider renal consultation. We will continue to follow this patient. [facility]# [id number]
--- NOTE | 2018-01-08 21:39 | Consultation ---
DATE OF CONSULTATION: 01/08/2018 CONSULTING PHYSICIAN: Dr. Callejas. REASON FOR CONSULTATION: Coffee-ground emesis. HISTORY OF PRESENT ILLNESS: The patient is a 77-year-old male with history of psychosis, dementia, arthritis, anxiety, major depression, who was brought into the hospital from his nursing facility for coffee-ground emesis. The patient denies this ever happened and notes that he had some vomiting, but that there was no blood in it and that he had been choking on some food that he was eating causes vomiting. However, there is report that this was witnessed by his staff at the facility and as he was transferred here for further evaluation. The patient is adamant that he does not want any further endoscopic examination, he does not want anybody to look inside of the stomach with the camera at this time as he does not believe he has bleeding. The patient has not had any further episodes of coffee-ground emesis, hematemesis or melena while here in the hospital. PAST MEDICAL HISTORY: Arthritis, dementia, psychosis, anxiety, benign prostatic hypertrophy, major depressive disorder. PAST SURGICAL HISTORY: The patient denies any abdominal surgeries. FAMILY HISTORY: Noncontributory. SOCIAL HISTORY: The patient is a permanent resident of a nursing facility. He denies any ongoing smoking or illicit drug use. REVIEW OF SYSTEMS: A 12-point review of systems was performed on the patient and is negative and the pertinent positives mentioned in history of present illness. CURRENT MEDICATIONS: Protonix. PHYSICAL EXAMINATION: VITAL SIGNS: Blood pressure is 112/61, pulse 81 beats per minute, temperature 97.5, oxygenation 96% on 2 liters. GENERAL: The patient is lying flat in bed. He is alert and oriented x 3. There is no apparent distress. HEAD, EARS, EYES, NOSE AND THROAT: Normocephalic, atraumatic appearing. HEENT: There is temporal wasting. Pupils are equal and reactive to light. Extraocular muscles are intact. Moist mucous membranes. NECK: Supple. No JVD or thyromegaly. CHEST: Crackles at both bases. CARDIOVASCULAR: S1, S2 present. Regular rate and rhythm. ABDOMEN: Thin, soft, and nontender to palpation. No guarding or rebound. No fluid distention. EXTREMITIES: No pitting edema is noted. Pulses are not present. SKIN: There are no obvious jaundice. LABORATORY DATA: White blood cell count is 11.1, hemoglobin 10.0, platelet count is 380. INR is 1.08. Sodium 128, BUN 50, creatinine 1.1. INR 1.08. There is no abdominal imaging that has been performed. IMPRESSION: This is a 77-year-old male with history of psychosis, dementia, arthritis, anxiety, benign prostatic hypertrophy, and major depression disorder who was admitted to the hospital from his nursing facility for witnessed coffee-ground emesis. 1. Coffee-ground emesis. 2. Anemia. 3. Psychosis. 4. Dementia. 5. Major depression disorder. DISCUSSION: At this point, it is unclear exactly what happened at nursing facility, although it is feasible that the patient did have episodes of coffee-ground emesis as described in ER report; however, he is adamant against any sort of endoscopic evaluation at this time and he seems to be able to clearly state back to me the risks of not going forward with endoscopy, which include delayed care and treatment and diagnosis of any potential pathology. He does not believe that he was bleeding. At the current time, I would recommend giving this patient twice a day PPI to treat him conservatively for any ulcer that might be within his stomach or esophagitis and we can restart his diet with full liquids and advance as tolerated. RECOMMENDATIONS: 1. PPI b.i.d. dosing. 2. KUB. 3. Full liquid diet and advance as tolerated. 4. If the patient changes his mind and would allow for EGD or consent for this, this is available from our service. 5. We will get a p.m., CBC. I do expect this likely to go down with hydration. 6. Monitor for any sign of active GI bleeding. We will continue to follow. Thank you for allowing us to participate in his care. Please call me with further questions. JOB# [id number]
[2018-01-09 08:02] LABS: % BASOPHILS 0.4 % (0.0-2.0); % EOSINOPHILS 6.3 % (0.0-5.0); % MONOCYTES 11.2 % (2.0-10.0); % NEUTROPHILS 53.1 % (40.0-80.0); EOSINOPHILE ABSOLUTE 0.3 Th/cmm (0.1-0.4); HEMATOCRIT 28.9 % (41.0-60); HEMOGLOBIN 9.7 gm/dL (12-16); LYMPHOCYTE ABSOLUTE 1.3 Th/cmm (1.5-3.0); MEAN CELL VOLUME 86.9 fl (80-99); MEAN CORPUSCULAR HEMOGLOBIN 29.2 pg (27.0-31.0); MEAN CORPUSCULAR HGB CONC 33.6 pg (28.0-36.0); MEAN PLATELET VOLUME 7.2 fl; MONOCYTE ABSOLUTE 0.5 Th/cmm (0.3-1.0); NEUTROPHILE ABSOLUTE 2.4 Th/cmm (1.8-8.0); PLATELET COUNT 357 Th/cmm (150-400); RED BLOOD COUNT 3.33 Mil/cmm (3.80-5.80); RED CELL DISTRIBUTION WIDTH 16.4 % (11.5-20.0); WHITE BLOOD COUNT 4.5 Th/cmm (4.8-10.8)
[2018-01-09 08:18] LABS: ANION GAP 9.2 (7.0-16.0); BUN - UREA NITROGEN 29 mg/dL (7-25); CALCIUM SERUM 8.7 mg/dL (8.6-10.3); CARBON DIOXIDE 21.6 mEq/L (21.0-31.0); CHLORIDE 107 mEq/L (98-107); GLUCOSE 76 mg/dL (70-105); POTASSIUM SERUM 3.8 mEq/L (3.5-5.1); SODIUM SERUM 134 mEq/L (136-145)
--- NOTE | 2018-01-09 08:21 | GI Progress Note ---
Subjective - Review of Systems Service Date: 01/09/18 Subjective: Denies any further vomiting, no bleeding. No overnight events. Objective - Results Result Diagrams: 01/09/18 07:56 01/09/18 07:56 Recent Labs: Laboratory Last Values WBC 4.5 Th/cmm (4.8-10.8) L 01/09/18 07:56 RBC 3.33 Mil/cmm (3.80-5.80) L 01/09/18 07:56 Hgb 9.7 gm/dL (12-16) L 01/09/18 07:56 Hct 28.9 % (41.0-60) L 01/09/18 07:56 MCV 86.9 fl (80-99) 01/09/18 07:56 MCH 29.2 pg (27.0-31.0) 01/09/18 07:56 MCHC Differential 33.6 pg (28.0-36.0) 01/09/18 07:56 RDW 16.4 % (11.5-20.0) 01/09/18 07:56 Plt Count 357 Th/cmm (150-400) 01/09/18 07:56 MPV 7.2 fl 01/09/18 07:56 Neutrophils % 53.1 % (40.0-80.0) 01/09/18 07:56 Lymphocytes % 29.0 % (20.0-50.0) 01/09/18 07:56 Monocytes % 11.2 % (2.0-10.0) H 01/09/18 07:56 Eosinophils % 6.3 % (0.0-5.0) H 01/09/18 07:56 Basophils % 0.4 % (0.0-2.0) 01/09/18 07:56 PT 10.4 SECONDS (9.5-11.5) 01/08/18 16:00 INR 1.00 (0.5-1.4) 01/08/18 16:00 PTT (Actin FS) 27.9 SECONDS (26.0-38.0) 01/08/18 16:00 Sodium 134 mEq/L (136-145) L 01/09/18 07:56 Potassium 3.8 mEq/L (3.5-5.1) 01/09/18 07:56 Chloride 107 mEq/L (98-107) 01/09/18 07:56 Carbon Dioxide 21.6 mEq/L (21.0-31.0) 01/09/18 07:56 Anion Gap 9.2 (7.0-16.0) 01/09/18 07:56 BUN 29 mg/dL (7-25) H 01/09/18 07:56 Creatinine 1.0 mg/dL (0.7-1.3) 01/09/18 07:56 Est GFR ( Amer) TNP 01/09/18 07:56 Est GFR (Non-Af Amer) TNP 01/09/18 07:56 BUN/Creatinine Ratio 29.0 01/09/18 07:56 Glucose 76 mg/dL (70-105) 01/09/18 07:56 Calcium 8.7 mg/dL (8.6-10.3) 01/09/18 07:56 Total Bilirubin 1.3 mg/dL (0.3-1.0) H 01/08/18 16:00 AST 64 U/L (13-39) H 01/08/18 16:00 ALT 115 U/L (7-52) H 01/08/18 16:00 Alkaline Phosphatase 243 U/L (34-104) H 01/08/18 16:00 Total Protein 7.5 gm/dL (6.0-8.3) 01/08/18 16:00 Albumin 3.1 gm/dL (4.2-5.5) L 01/08/18 16:00 Globulin 4.4 gm/dL 01/08/18 16:00 Albumin/Globulin Ratio 0.7 (1.0-1.8) L 01/08/18 16:00 - Physical Exam Vitals and I&O: Vital Signs Temp 98 F 01/09/18 04:00 Pulse 70 01/09/18 04:00 Resp 18 01/09/18 04:00 BP 100/66 01/09/18 04:00 Pulse Ox 97 01/09/18 04:00 Intake & Output 01/08/18 01/09/18 01/09/18 18:59 06:59 18:59 Intake Total 956 Balance 956 Weight (lbs) 53.977 kg Intake: Intake, IV Amount 956 Sodium Chloride 0.9% 1, 956 000 ml @ 60 mls/hr IV . [id number] [facility] Rx#:[id number] Other: # Voids 3 Weight Source Bedscale Active Medications: Current Medications Acetaminophen (Tylenol) 650 mg PO Q4HR PRN PRN Reason: MILD PAIN Stop: 03/09/18 12:53 Al Hydrox/Mg Hydrox/Simethicone (Maalox) 30 ml PO Q4HR PRN PRN Reason: GI DISTRESS Stop: 03/09/18 12:53 Bisacodyl (Dulcolax 10 Mg Supp) 10 mg RC DAILY PRN PRN Reason: IF MOM INEFFECTIVE Stop: 03/09/18 12:53 Docusate Sodium (Colace) 100 mg PO BID HELENE Stop: 03/09/18 16:59 Last Admin: 01/08/18 17:55 Dose: 100 mg Donepezil HCl (Aricept) 5 mg PO HS HELENE Stop: 03/09/18 20:59 Last Admin: 01/08/18 21:25 Dose: 5 mg Finasteride (Proscar) 5 mg PO DAILY [facility]; Protocol Stop: 03/10/18 08:59 Sodium Chloride (Nacl 0.9%) 1,000 mls @ 60 mls/hr IV .[id number] HELENE Stop: 03/09/18 01:59 Last Admin: 01/08/18 18:00 Dose: 60 mls/hr Ibuprofen (Motrin) 600 mg PO Q6H PRN PRN Reason: MODERATE PAIN Stop: 03/09/18 12:53 Magnesium Hydroxide (Milk Of Magnesia) 30 ml PO HS PRN PRN Reason: Constipation Stop: 03/09/18 12:53 Miscellaneous (Vte Chemical Prophylaxis Screen/ Admission) 1 ea MC PRN PRN PRN Reason: PROTOCOL Stop: 03/09/18 09:50 Multivitamins/Vitamin C (Theragran) 1 tab PO DAILY HELENE Stop: 03/10/18 08:59 Pantoprazole Sodium (Protonix) 40 mg IVP BID HELENE Stop: 03/09/18 09:44 Last Admin: 01/08/18 17:55 Dose: 40 mg Risperidone (Risperdal) 0.25 mg PO HS HELENE; Protocol Stop: 03/09/18 20:59 Tamsulosin HCl (Flomax) 0.4 mg PO DAILY HELENE Stop: 03/10/18 08:59 Vitamin D (Vitamin D3) 4,000 iu PO DAILY HELENE Stop: 03/10/18 08:59 General: Alert, Cooperative HEENT: Atraumatic Neck: Supple Cardiovascular: Regular rate Abdomen: Bowel sounds, Soft, no Tender, no Hepatomegaly, no Splenomegaly, no Distended, no Rebound, no Mass Assessment/Plan - Assessment Assessment: # Reported coffee ground emesis # Anemia # Dementia Pt has not had any further episodes, and he is adamantly against EGD. We will treat conservatively with PPI therapy. Plan: - no EGD unless the pt changes his stance on this issues - PPI - advance diet as tolerated - trend hgb, transfuse to keep above 7 GI to see as needed, please call with any questions
[2018-01-09] MEDS ORDERED: Multivitamin Tab PO SCH (09:00)
[2018-01-09] MEDS ORDERED: Vitamin D3 2,000 IU SGL PO SCH (09:00)
[2018-01-09] MEDS: Sodium Chloride 0.9% 1,000 ML IV SCH (13:52)
--- NOTE | 2018-01-09 15:55 | Infectious Disease Prog Note ---
Infectious Disease Subjective - Review of Systems Service Date: 01/09/18 Subjective: No fever no chills. Infectious Disease Objective - Results Result Diagrams: 01/09/18 07:56 01/09/18 07:56 Recent Labs: Laboratory Last Values WBC 4.5 Th/cmm (4.8-10.8) L 01/09/18 07:56 RBC 3.33 Mil/cmm (3.80-5.80) L 01/09/18 07:56 Hgb 9.7 gm/dL (12-16) L 01/09/18 07:56 Hct 28.9 % (41.0-60) L 01/09/18 07:56 MCV 86.9 fl (80-99) 01/09/18 07:56 MCH 29.2 pg (27.0-31.0) 01/09/18 07:56 MCHC Differential 33.6 pg (28.0-36.0) 01/09/18 07:56 RDW 16.4 % (11.5-20.0) 01/09/18 07:56 Plt Count 357 Th/cmm (150-400) 01/09/18 07:56 MPV 7.2 fl 01/09/18 07:56 Neutrophils % 53.1 % (40.0-80.0) 01/09/18 07:56 Lymphocytes % 29.0 % (20.0-50.0) 01/09/18 07:56 Monocytes % 11.2 % (2.0-10.0) H 01/09/18 07:56 Eosinophils % 6.3 % (0.0-5.0) H 01/09/18 07:56 Basophils % 0.4 % (0.0-2.0) 01/09/18 07:56 PT 10.4 SECONDS (9.5-11.5) 01/08/18 16:00 INR 1.00 (0.5-1.4) 01/08/18 16:00 PTT (Actin FS) 27.9 SECONDS (26.0-38.0) 01/08/18 16:00 Sodium 134 mEq/L (136-145) L 01/09/18 07:56 Potassium 3.8 mEq/L (3.5-5.1) 01/09/18 07:56 Chloride 107 mEq/L (98-107) 01/09/18 07:56 Carbon Dioxide 21.6 mEq/L (21.0-31.0) 01/09/18 07:56 Anion Gap 9.2 (7.0-16.0) 01/09/18 07:56 BUN 29 mg/dL (7-25) H 01/09/18 07:56 Creatinine 1.0 mg/dL (0.7-1.3) 01/09/18 07:56 Est GFR ( Amer) TNP 01/09/18 07:56 Est GFR (Non-Af Amer) TNP 01/09/18 07:56 BUN/Creatinine Ratio 29.0 01/09/18 07:56 Glucose 76 mg/dL (70-105) 01/09/18 07:56 Calcium 8.7 mg/dL (8.6-10.3) 01/09/18 07:56 Total Bilirubin 1.3 mg/dL (0.3-1.0) H 01/08/18 16:00 AST 64 U/L (13-39) H 01/08/18 16:00 ALT 115 U/L (7-52) H 01/08/18 16:00 Alkaline Phosphatase 243 U/L (34-104) H 01/08/18 16:00 Total Protein 7.5 gm/dL (6.0-8.3) 01/08/18 16:00 Albumin 3.1 gm/dL (4.2-5.5) L 01/08/18 16:00 Globulin 4.4 gm/dL 01/08/18 16:00 Albumin/Globulin Ratio 0.7 (1.0-1.8) L 01/08/18 16:00 - Physical Exam Vitals and I&O: Vital Signs Temp 96.7 F 01/09/18 12:00 Pulse 57 01/09/18 12:00 Resp 16 01/09/18 12:00 BP 111/64 01/09/18 12:00 Pulse Ox 100 01/09/18 12:00 Intake & Output 01/08/18 01/09/18 01/09/18 18:59 06:59 18:59 Intake Total 956 1000 Balance 956 1000 Weight (lbs) 53.977 kg Intake: Intake, IV Amount 956 1000 Sodium Chloride 0.9% 1, 956 1000 000 ml @ 60 mls/hr IV . [id number] [facility] Rx#:[id number] Other: # Voids 3 Weight Source Bedscale Active Medications: Current Medications Acetaminophen (Tylenol) 650 mg PO Q4HR PRN PRN Reason: MILD PAIN Stop: 03/09/18 12:53 Al Hydrox/Mg Hydrox/Simethicone (Maalox) 30 ml PO Q4HR PRN PRN Reason: GI DISTRESS Stop: 03/09/18 12:53 Bisacodyl (Dulcolax 10 Mg Supp) 10 mg RC DAILY PRN PRN Reason: IF MOM INEFFECTIVE Stop: 03/09/18 12:53 Docusate Sodium (Colace) 100 mg PO BID HELENE Stop: 03/09/18 16:59 Last Admin: 01/09/18 09:46 Dose: 100 mg Donepezil HCl (Aricept) 5 mg PO HS HELENE Stop: 03/09/18 20:59 Last Admin: 01/08/18 21:25 Dose: 5 mg Finasteride (Proscar) 5 mg PO DAILY HELENE; Protocol Stop: 03/10/18 08:59 Last Admin: 01/09/18 09:46 Dose: 5 mg Sodium Chloride (Nacl 0.9%) 1,000 mls @ 60 mls/hr IV .[id number] HELENE Stop: 03/09/18 01:59 Last Admin: 01/09/18 13:52 Dose: 60 mls/hr Ibuprofen (Motrin) 600 mg PO Q6H PRN PRN Reason: MODERATE PAIN Stop: 03/09/18 12:53 Magnesium Hydroxide (Milk Of Magnesia) 30 ml PO HS PRN PRN Reason: Constipation Stop: 03/09/18 12:53 Miscellaneous (Vte Chemical Prophylaxis Screen/ Admission) 1 ea MC PRN PRN PRN Reason: PROTOCOL Stop: 03/09/18 09:50 Multivitamins/Vitamin C (Theragran) 1 tab PO DAILY HELENE Stop: 03/10/18 08:59 Last Admin: 01/09/18 09:46 Dose: 1 tab Pantoprazole Sodium (Protonix) 40 mg IVP BID HELENE Stop: 03/09/18 09:44 Last Admin: 01/09/18 09:46 Dose: 40 mg Risperidone (Risperdal) 0.25 mg PO HS HELENE; Protocol Stop: 03/09/18 20:59 Tamsulosin HCl (Flomax) 0.4 mg PO DAILY [facility] Stop: 03/10/18 08:59 Last Admin: 01/09/18 09:46 Dose: 0.4 mg Vitamin D (Vitamin D3) 4,000 iu PO DAILY [facility] Stop: 03/10/18 08:59 Last Admin: 01/09/18 09:46 Dose: 4,000 iu General: no acute distress, well developed, well nourished HEENT: atraumatic, normocephalic, PERRLA, EOMI Neck: supple, no thyromegaly Cardiovascular: S1S2, regular Lungs: clear to auscultation bilaterally, clear to percussion Abdomen: soft, no tender, no distended, no rebound Extremities: no cyanosis, no clubbing, no edema Neurological: awake, alert, oriented Skin: intact Infectious Disease Assmt/Plan - Assessment Assessment: 1. Leukocytosis improved. 2. Hematemesis. 3. Dementia. 4. Depression. 5. BPH. - Plan Plan: Continue same treatment. If there is no active intervention offered by any weight loss sales consultant, may discharge the patient to stay.
--- NOTE | 2018-01-18 22:39 | Discharge Summary ---
DATE OF DISCHARGE: 01/09/2018 HOSPITAL COURSE: The patient was admitted to [facility] on 01/08 and discharged 01/09. The patient came from [facility]. He was sent back to [facility]. Initially, the patient came in because of the urinary infection and dehydration, possible upper GI bleeding, anemia, psychosis, benign enlargement of the prostate, depression, vitamin D deficiency. The patient was given IV fluids, antibiotics, had GI doctor see him. The patient refused for endoscopy. The patient was stable. The patient was sent back to [facility] and I will be following the patient there. His final diagnoses is status post GI bleeding, history of psychosis, history of BPH, history of history of UTI, history of dementia. [facility]# [id number]
== END 2018-01-09 20:30 | DRG 377 ==
LOC: ER 22:49 → TELE 01-08 01:00
PROVIDERS: ADMIT Internal Medicine; ATTEND Internal Medicine
DX: K92.2 Gastrointestinal hemorrhage, unspecified (principal); E43 Unspecified severe protein-calorie malnutrition; R64 Cachexia; D72.829 Elevated white blood cell count, unspecified; E86.0 Dehydration; F03.90 Unspecified dementia, unspecified severity, without behavioral disturbance, psychotic disturbance, mood disturbance, and anxiety; N28.9 Disorder of kidney and ureter, unspecified; F32.9 Major depressive disorder, single episode, unspecified; N40.0 Benign prostatic hyperplasia without lower urinary tract symptoms; R13.10 Dysphagia, unspecified; F41.9 Anxiety disorder, unspecified; D64.9 Anemia, unspecified; M19.90 Unspecified osteoarthritis, unspecified site; Z53.20 Procedure and treatment not carried out because of patient's decision for unspecified reasons; E55.9 Vitamin D deficiency, unspecified; Z79.899 Other long term (current) drug therapy
CPT/HCPCS: 36415-UA; 80048-TC; 80053-TC; 85025-TC; 85610-TC; 85730-TC; C9113; Z7610

== ENCOUNTER 2018-07-16 13:11 | Inpatient (IN) | payer MEDICARE, OTHER ==
[2018-07-16 14:10] LABS: HEMOGLOBIN 11.1 gm/dL (12-16); MEAN CORPUSCULAR HEMOGLOBIN 28.5 pg (27.0-31.0)
[2018-07-16 14:12] LABS: % BASOPHILS 0.2 % (0.0-2.0); % EOSINOPHILS 8.6 % (0.0-5.0); % LYMPHOCYTES 36.5 % (20.0-50.0); % MONOCYTES 7.1 % (2.0-10.0); % NEUTROPHILS 47.6 % (40.0-80.0); EOSINOPHILE ABSOLUTE 0.5 Th/cmm (0.1-0.4); HEMATOCRIT 33.6 % (41.0-60); MEAN CELL VOLUME 85.9 fl (80-99); MEAN CORPUSCULAR HGB CONC 33.1 pg (28.0-36.0); MEAN PLATELET VOLUME 7.1 fl; MONOCYTE ABSOLUTE 0.4 Th/cmm (0.3-1.0); NEUTROPHILE ABSOLUTE 2.7 Th/cmm (1.8-8.0); PLATELET COUNT 350 Th/cmm (150-400); RED BLOOD COUNT 3.91 Mil/cmm (3.80-5.80); WHITE BLOOD COUNT 5.6 Th/cmm (4.8-10.8)
[2018-07-16 14:26] LABS: INR 1.06 (0.5-1.4)
[2018-07-16 14:30] LABS: ALB/GLOB RATIO 0.6 (1.0-1.8); ALBUMIN 3.3 gm/dL (4.2-5.5); ALKALINE PHOSPHATASE 76 U/L (34-104); ANION GAP 11.5 (7.0-16.0); BILIRUBIN,TOTAL 0.4 mg/dL (0.3-1.0); BUN - UREA NITROGEN 19 mg/dL (7-25); CALCIUM SERUM 9.5 mg/dL (8.6-10.3); CHLORIDE 102 mEq/L (98-107); CREATININE - SERUM 0.9 mg/dL (0.7-1.3); CREATININE KINASE 88 U/L (30-223); GLUCOSE 91 mg/dL (70-105); POTASSIUM SERUM 4.5 mEq/L (3.5-5.1); SGOT 18 U/L (13-39); SGPT/ALT 19 U/L (7-52); SODIUM SERUM 134 mEq/L (136-145); TOTAL PROTEIN,SERUM 8.6 gm/dL (6.0-8.3)
[2018-07-16 14:45] LABS: TROP I 0.01 ng/mL (0.01-0.05)
--- NOTE | 2018-07-16 14:55 | ED Physician Chart ---
ED Chief Complaint/HPI - Patient Information Date Seen:: 07/16/18 Time Seen:: 14:00 Chief Complaint:: Fever History of Present Illness:: onset x 2 days of fever, urinary catheter leakage, and urinary s/s; no report of trauma, H/As, neck pain, C/P, SOB, Abd. Pain, or bleeding Allergies:: Allergies Allergy/AdvReac Type Severity Reaction Status Date / Time No Known Allergies Allergy Verified 11/13/17 16:17 Vitals:: Vital Signs - 8 hr 07/16/18 13:59 Temp 99.7 F HR 71 RR 16 BP 141/82 O2 Sat % 98 Historian:: Patient, EMS Review:: Nurse's Note Reviewed, Old Chart Reviewed ED Review of Systems - Review of Systems General/Constitutional: No fever, No chills, No weight loss, No weakness, No diaphoresis, No edema, No loss of appetite Skin: No skin lesions, No rash, No bruising Head: No headache, No light-headedness Eyes: No loss of vision, No pain, No diplopia ENT: No earache, No nasal drainage, No sore throat, No tinnitus Neck: No neck pain, No swelling, No thyromegaly, No stiffness, No mass noted Cardio Vascular: No chest pain, No palpitations, No PND, No orthopnea, No edema Pulmonary: No SOB, No cough, No sputum, No wheezing GI: No nausea, No vomiting, No diarrhea, No pain, No melena, No hematochezia, No constipation, No hematemesis G/U: Dysuria, Frequency, Hematuria, Nocturia Musculoskeletal: No bone or joint pain, No back pain, No muscle pain Endocrine: Polyuria, No polydipsia Psychiatric: Prior psych history, Depression, Anxiety, No suicidal ideation, No homicidal ideation, No auditory hallucination, No visual hallucination Hematopoietic: No bruising, No lymphadenopathy Allergic/Immuno: No urticaria, No angioedema Neurological: No syncope, No focal symptoms, No weakness, No paresthesia, No headache, No seizure, No dizziness, Confusion, No vertigo ED Past Medical History - Past Medical History Obtainable: Yes Past Medical History: HTN, Arthritis, Dementia Family History: HTN Social History: Non Smoker, No Alcohol, No Drug Use, Single, Care Facility Surgical History: other (Connolly Catheter) Psychiatricy History: Bipolar, Dementia Medication: Reviewed Family Medical History - Family Member Mother History Unknown: Yes Ethnicity: Non- Living Status: Hx Family Cancer: (UNKNOWN) Hx Family Coronary Artery Disease: (UNKNOWN) Hx Family Congestive Heart Failure: (UNKNOWN) Hx Family Hypertension: (UNKNOWN) Hx Family Stroke: (UNKNOWN) Hx Family Diabetes: (UNKNOWN) Hx Family Seizures: (UNKNOWN) Hx Family Dementia: (UNKNOWN) Hx Family AIDS: (UNKNOWN) Hx Family HIV: No Hx Family COPD: (UNKNOWN) Hx Family Hepatitis: (UNKNOWN) Hx Family Psychiatric Problems: (UNKNOWN) Hx Family Tuberculosis: (UNKNOWN) ED Physical Exam - Physical Examination General/Constitutional: Awake, Well-developed, well-nourished, Alert, No distress, GCS 15, Non-toxic appearing, Ambulatory Head: Atraumatic Eyes: Lids, conjuctiva normal, PERRL, EOMI Skin: Nl inspection, No rash, No skin lesions, No ecchymosis, Well hydrated, No lymphadenopathy ENMT: External ears, nose nl, TM canals nl, Nasal exam nl, Lips, teeth, gums nl , Oropharynx nl, Tonsils nl Neck: Nontender, Full ROM w/o pain, No JVD, No nuchal rigidity, No bruit, No mass, No stridor Respiratory: Nl effort/Exclusion, Clear to Auscultation, No Wheeze/Rhonchi/Rales Cardio Vascular: RRR, No murmur, gallop, rubs, NL S1 S2, Carotid/Femoral/Distal pulses equal bilaterally GI: No tenderness/rebounding/guarding, No organomegaly, No hernia, Normal BS's, Nondistended, No mass/bruits, No McBurney tenderness, Rectum exam nl Other GI comments:: no pulsatile masses : No CVA tenderness Other comments:: + FC Leakage Extremities: No tenderness or effusion, Full ROM, normal strength in all extremities, No edema, Normal digits & nails Neuro/Psych: Alert/oriented, DTR's symmetric, Normal sensory exam, Normal motor strength, Judgement/insight normal, Mood normal, Normal gait, No focal deficits Misc: Normal back, No paraspinal tenderness ED Labs/Radiology/EKG Results - Lab Results Results: Laboratory Tests 07/16/18 07/16/18 07/16/18 14:00 14:00 14:00 WBC 5.6 RBC 3.91 Hgb 11.1 L Hct 33.6 L MCV 85.9 MCH 28.5 MCHC Differential 33.1 RDW 17.0 Plt Count 350 MPV 7.1 Neutrophils % 47.6 Lymphocytes % 36.5 Monocytes % 7.1 Eosinophils % 8.6 H Basophils % 0.2 PT 11.0 INR 1.06 PTT (Actin FS) 22.3 L Sodium 134 L Potassium 4.5 Chloride 102 Carbon Dioxide 25.0 Anion Gap 11.5 BUN 19 Creatinine 0.9 Est GFR ( Amer) TNP Est GFR (Non-Af Amer) TNP BUN/Creatinine Ratio 21.1 Glucose 91 Whole Bld Lactic Acid Calcium 9.5 Total Bilirubin 0.4 AST 18 ALT 19 Alkaline Phosphatase 76 Creatine Kinase 88 Troponin I Total Protein 8.6 H Albumin 3.3 L Globulin 5.3 Albumin/Globulin Ratio 0.6 L 07/16/18 14:00 WBC RBC Hgb Hct MCV MCH MCHC Differential RDW Plt Count MPV Neutrophils % Lymphocytes % Monocytes % Eosinophils % Basophils % PT INR PTT (Actin FS) Sodium Potassium Chloride Carbon Dioxide Anion Gap BUN Creatinine Est GFR ( Amer) Est GFR (Non-Af Amer) BUN/Creatinine Ratio Glucose Whole Bld Lactic Acid 1.48 Calcium Total Bilirubin AST ALT Alkaline Phosphatase Creatine Kinase Troponin I 0.01 Total Protein Albumin Globulin Albumin/Globulin Ratio Comments:: Reviewed - Radiology Results Comments:: NAD - EKG Interpretations EKG Time:: 14:01 Rate & Rhythm: 70; NSR Comments:: T-Wave Inversions; non-specific st-t changes ED Septic Shock - . Is Septic Shock (SBP<90, OR Lactate>4 mmol\L) present?: No - <6hrs of presentation: Vital Signs: Vital Signs - 8 hr 07/16/18 13:59 Temp 99.7 F HR 71 RR 16 BP 141/82 O2 Sat % 98 ED Reassessment (Disposition) - Reassessment Reassessment Condition:: Improved - Diagnosis Diagnosis:: Anemia; Hyponatremia; Hematuria; Dementia; Psychosis; UTI; Sepsis; Catheter Leakage; Fever; HTN; BPH - Aftercare/Follow up Instructions Aftercare/Follow-Up Instructions:: Counseled pt regarding lab results/diagnosis & need follow up, Counseled pt & family regarding lab results/diagnosis & need follow up - Patient Disposition Discharge/Transfer:: Acute Care w/in this hosp Accepting Physician:: Dr. Callejas Time Called:: [phone] Time Responded:: 15:45 Admitted to:: Med/Surg Spoke to:: Dr. Callejas Admitting Medical Physician:: Dr. Callejas Condition at Disposition:: Stable, Improved
[2018-07-16 16:29] LABS: URINE SOURCE MIDSTREAM
[2018-07-16 16:41] LABS: URINE BILIRUBIN NEGATIVE (NEGATIVE); URINE BLOOD LARGE (NEGATIVE); URINE GLUCOSE (UA) NEGATIVE (NEGATIVE); URINE KETONE NEGATIVE (NEGATIVE); URINE LEUKOCYTE ESTERASE LARGE (NEGATIVE); URINE MICROSCOPIC INDICATED? YES; URINE NITRATE POSITIVE (NEGATIVE); URINE PROTEIN 100 mg/dL (NEGATIVE); URINE UROBILINOGEN 0.2 E.U./dL (0.2 - 1.0)
[2018-07-16 16:51] LABS: URINE CLARITY CLOUDY (CLEAR); URINE COLOR YELLOW
[2018-07-16 17:02] LABS: URINE EPITHELIAL CELLS FEW /lpf (FEW); URINE RBC 50-100 /hpf (0-5); URINE WBC 25-50 /hpf (0-5)
[2018-07-16] MEDS ORDERED: cefTRIAXone 1 GM in Sodium Chloride 0.9% 50 ML IV ONE (17:16)
[2018-07-16] MEDS: Sodium Chloride 0.9% 1,000 ML IV ONE ×2 (17:31→20:48)
[2018-07-16] MEDS ORDERED: Piperacillin Sodium/Tazobact 3.375 gm Vial IV ONE (20:44)
[2018-07-17] MEDS ORDERED: Pneumococcal Vaccine 0.5 mL Vial IM ONE (00:11)
[2018-07-17] MEDS ORDERED: Piperacillin Sodium/Tazobact 3.375 gm Vial IV ONE (04:02)
--- NOTE | 2018-07-17 08:07 | Diagnostic Imaging Report ---
Portable chest x-ray HISTORY: Fever Compared with the prior exam of June 20, 2018, the heart size appears normal. A linear density seen in the right perihilar region. Findings suggest changes of subsegmental atelectasis. Clinical correlation is needed. No other acute abnormalities. IMPRESSION: 1. Linear density within the right perihilar region which may be associated with subsegmental atelectasis. No other focal processes.
[2018-07-17] MEDS ORDERED: VTE Chemical Prophylaxis Screen/Admission MC PRN (09:52)
[2018-07-17] MEDS ORDERED: Maalox 30 mL Cup PO PRN (14:56)
--- NOTE | 2018-07-17 17:24 | History & Physical ---
ADMIT DATE: 07/16/2018 CHIEF COMPLAINT: Fever. HISTORY OF PRESENT ILLNESS: This is a 78-year-old male who is a senior care resident, admitted to the telemetry unit due to a 2-day history of fever and urinary catheter leakage. PAST MEDICAL HISTORY: Hypertension, arthritis, dementia. FAMILY HISTORY: Noncontributory. SOCIAL HISTORY: The patient is a senior care resident. MEDICATIONS: See medication list. REVIEW OF SYSTEMS: Unable to obtain, the patient is confused. PHYSICAL EXAMINATION: GENERAL: The patient is well developed, well nourished, awake, alert with confusion, no apparent distress. VITAL SIGNS: Temperature 97.9, heart rate 81, blood pressure 121/79, respirations 18, O2 of 98%. HEENT: Head normocephalic, atraumatic. NECK: Supple. No mass. LUNGS: Clear bilaterally. HEART: Regular rate and rhythm. ABDOMEN: Soft, nontender. LABORATORY DATA: WBC 5.6, H and H 11.1 and 33.6, platelet of 350. Sodium 134, potassium 4.5, chloride 102, BUN 19, creatinine 0.9. The patient had a urinalysis done, positive for UTI. DIAGNOSTICS: The patient had a chest x-ray done, impression is linear densities in the right perihilar region which may associated with segmental atelectasis. ASSESSMENT: Acute urinary tract infection, scrotal wound, urethral fistula, acute febrile illness, anemia, hyponatremia, mild to moderate protein-calorie malnutrition, hypertension, arthritis, dementia, bipolar. PLAN: The patient to be admitted to the telemetry unit. We will send urine for culture. We will get Urology on the case as well as ID. Start the patient on IV Zosyn and vancomycin. We will continue to monitor this patient. JOB# [id number]
[2018-07-17] MEDS: Lactobacillus Rhamnosus GG 15 Billion CFU CAP.SPRINK PO SCH (17:28)
[2018-07-17] MEDS: D5-0.45NS 1,000 ML IV SCH (21:32)
[2018-07-18] MEDS: Meropenem 500 MG in Sodium Chloride 0.9% 100 ML IV SCH ×3 (00:25→21:00)
[2018-07-18] MEDS: Lactobacillus Rhamnosus GG 15 Billion CFU CAP.SPRINK PO SCH ×3 (08:12→17:04)
[2018-07-18] MEDS: Vitamin D3 2,000 IU SGL PO SCH ×2 (08:14→11:04)
--- NOTE | 2018-07-18 12:26 | Internal Medicine Prog Note ---
Internal Medicine Subjective - Subjective Patient seen and examined:: chart reviewed Patient is:: awake, other (pt admitted with fever and leakage of urinary cath) Per staff patient has:: no adverse event Internal Medicine Objective - Results Result Diagrams: 07/16/18 14:00 07/16/18 14:00 Recent Labs: Laboratory Last Values WBC 5.6 Th/cmm (4.8-10.8) 07/16/18 14:00 RBC 3.91 Mil/cmm (3.80-5.80) 07/16/18 14:00 Hgb 11.1 gm/dL (12-16) L 07/16/18 14:00 Hct 33.6 % (41.0-60) L 07/16/18 14:00 MCV 85.9 fl (80-99) 07/16/18 14:00 MCH 28.5 pg (27.0-31.0) 07/16/18 14:00 MCHC Differential 33.1 pg (28.0-36.0) 07/16/18 14:00 RDW 17.0 % (11.5-20.0) 07/16/18 14:00 Plt Count 350 Th/cmm (150-400) 07/16/18 14:00 MPV 7.1 fl 07/16/18 14:00 Neutrophils % 47.6 % (40.0-80.0) 07/16/18 14:00 Lymphocytes % 36.5 % (20.0-50.0) 07/16/18 14:00 Monocytes % 7.1 % (2.0-10.0) 07/16/18 14:00 Eosinophils % 8.6 % (0.0-5.0) H 07/16/18 14:00 Basophils % 0.2 % (0.0-2.0) 07/16/18 14:00 PT 11.0 SECONDS (9.5-11.5) 07/16/18 14:00 INR 1.06 (0.5-1.4) 07/16/18 14:00 PTT (Actin FS) 22.3 SECONDS (26.0-38.0) L 07/16/18 14:00 Sodium 134 mEq/L (136-145) L 07/16/18 14:00 Potassium 4.5 mEq/L (3.5-5.1) 07/16/18 14:00 Chloride 102 mEq/L (98-107) 07/16/18 14:00 Carbon Dioxide 25.0 mEq/L (21.0-31.0) 07/16/18 14:00 Anion Gap 11.5 (7.0-16.0) 07/16/18 14:00 BUN 19 mg/dL (7-25) 07/16/18 14:00 Creatinine 0.9 mg/dL (0.7-1.3) 07/16/18 14:00 Est GFR ( Amer) TNP 07/16/18 14:00 Est GFR (Non-Af Amer) TNP 07/16/18 14:00 BUN/Creatinine Ratio 21.1 07/16/18 14:00 Glucose 91 mg/dL (70-105) 07/16/18 14:00 Whole Bld Lactic Acid 1.48 mmol/L (0.60-1.99) 07/16/18 14:00 Calcium 9.5 mg/dL (8.6-10.3) 07/16/18 14:00 Total Bilirubin 0.4 mg/dL (0.3-1.0) 07/16/18 14:00 AST 18 U/L (13-39) 07/16/18 14:00 ALT 19 U/L (7-52) 07/16/18 14:00 Alkaline Phosphatase 76 U/L (34-104) 07/16/18 14:00 Creatine Kinase 88 U/L (30-223) 07/16/18 14:00 Troponin I 0.01 ng/mL (0.01-0.05) 07/16/18 14:00 Total Protein 8.6 gm/dL (6.0-8.3) H 07/16/18 14:00 Albumin 3.3 gm/dL (4.2-5.5) L 07/16/18 14:00 Globulin 5.3 gm/dL 07/16/18 14:00 Albumin/Globulin Ratio 0.6 (1.0-1.8) L 07/16/18 14:00 Urine Source MIDSTREAM 07/16/18 16:15 Urine Color YELLOW 07/16/18 16:15 Urine Clarity CLOUDY (CLEAR) 07/16/18 16:15 Urine pH 7.0 (4.6 - 8.0) 07/16/18 16:15 Ur Specific [place] 1.025 (1.005-1.030) 07/16/18 16:15 Urine Protein 100 mg/dL (NEGATIVE) H 07/16/18 16:15 Urine Glucose (UA) NEGATIVE mg/dL (NEGATIVE) 07/16/18 16:15 Urine Ketones NEGATIVE mg/dL (NEGATIVE) 07/16/18 16:15 Urine Blood LARGE (NEGATIVE) H 07/16/18 16:15 Urine Nitrate POSITIVE (NEGATIVE) H 07/16/18 16:15 Urine Bilirubin NEGATIVE (NEGATIVE) 07/16/18 16:15 Urine Urobilinogen 0.2 E.U./dL (0.2 - 1.0) 07/16/18 16:15 Ur Leukocyte Esterase LARGE (NEGATIVE) H 07/16/18 16:15 Urine RBC 50-100 /hpf (0-5) H 07/16/18 16:15 Urine WBC 25-50 /hpf (0-5) H 07/16/18 16:15 Ur Epithelial Cells FEW /lpf (FEW) 07/16/18 16:15 - Physical Exam Vitals and I&O: Vital Signs Temp 98.9 F 07/18/18 08:00 Pulse 82 07/18/18 08:00 Resp 18 07/18/18 08:00 BP 101/66 07/18/18 08:00 Pulse Ox 92 07/18/18 08:00 Intake & Output 07/17/18 07/18/18 07/18/18 18:59 06:59 18:59 Intake Total 50 1000 Output Total 901 Balance 50 99 Weight (lbs) 54.885 kg Intake: Intake, IV Amount 50 400 Meropenem 500 mg In 100 Sodium Chloride 0.9% 100 ml @ 100 mls/hr IV Q12HR [facility] Rx#:[id number] Piperacillin Sodium/ 50 50 Tazobact 3.375 gm In Sodium Chloride 0.9% 50 ml @ 100 mls/hr IV Q8HR [facility] Rx#:[id number] Vancomycin HCl 1 gm In 250 Sodium Chloride 0.9% 250 ml @ 165 mls/hr IV Q24H [facility] Rx#:[id number] Oral 600 Output: Urine 900 Stool 1 Other: Weight Source Bedscale Active Medications: Current Medications Acetaminophen (Tylenol) 650 mg PO Q6H PRN PRN Reason: Pain or Fever >101 Stop: 09/15/18 21:18 Al Hydrox/Mg Hydrox/Simethicone (Maalox) 30 ml PO Q4H PRN PRN Reason: GI DISTRESS Stop: 09/15/18 14:55 Donepezil HCl (Aricept) 5 mg PO DAILY [facility] Stop: 09/16/18 08:59 Last Admin: 07/18/18 11:04 Dose: Not Given Finasteride (Proscar) 5 mg PO DAILY [facility]; Protocol Stop: 09/16/18 08:59 Last Admin: 07/18/18 11:04 Dose: Not Given Heparin Sodium (Porcine) (Heparin) 5,000 units SUBQ Q12HR [facility] Stop: 09/15/18 20:59 Last Admin: 07/18/18 08:29 Dose: 5,000 units Vancomycin HCl 1 gm/ Sodium (Chloride) 250 mls @ 165 mls/hr IV Q24H [facility] Stop: 09/15/18 21:59 Last Infusion: 07/18/18 00:10 Dose: Infused Dextrose/Sodium Chloride (D5-0.45ns) 1,000 mls @ 50 mls/hr IV .Q20H [facility] Stop: 09/15/18 21:20 Last Admin: 07/17/18 21:32 Dose: 50 mls/hr Meropenem 500 mg/ Sodium (Chloride) 100 mls @ 100 mls/hr IV Q12HR [facility] Stop: 09/16/18 00:00 Last Admin: 07/18/18 10:47 Dose: 100 mls/hr Lactobacillus Rhamnosus (Culturelle 15b) 1 each PO BID [facility] Stop: 09/15/18 16:59 Last Admin: 07/18/18 11:03 Dose: Not Given Miscellaneous (Vte Chemical Prophylaxis Screen/ Admission) 1 ea MC PRN PRN PRN Reason: PROTOCOL Stop: 09/15/18 09:51 Mupirocin (Bactroban Oint) 1 appl NS BID [facility] Stop: 07/22/18 09:01 Last Admin: 07/18/18 08:15 Dose: 1 appl Tamsulosin HCl (Flomax) 0.4 mg PO HS [facility] Stop: 09/15/18 20:59 Last Admin: 07/17/18 21:31 Dose: Not Given Vitamin D (Vitamin D3) 4,000 iu PO DAILY [facility] Stop: 09/16/18 08:59 Last Admin: 07/18/18 11:04 Dose: Not Given General: weak, congested HEENT: NC/AT Neck: Supple Lungs: CTAB Cardiovascular: RRR, Normal S1, Normal S2 Abdomen: soft, non-tender Extremities: clear Neurological: no change - Procedures Procedures: Procedures Procedure Code Date DRAINAGE OF SCROTUM, OPEN APPROACH [id number] 06/20/18 INSPECTION OF BLADDER, ENDO [id number] 06/20/18 Internal Medicine Assmt/Plan - Assessment Assessment: uti scrotum wound urethral fistula fever anemia hyponatremia htn malnutricion arthritis dementia bipolar - Plan Plan: asper order sheet Nutritional Asmnt/Malnutr-PDOC - Dietary Evaluation Malnutrition Findings (Please click <Entered> for more info): Nutritional Asmnt/Malnutrition Start: 07/17/18 13: 14 Text: Status: Complete Freq: Protocol: Document 07/17/18 13:14 [email or web address] (Rec: 07/17/18 13:21 [email or web address] TRIPLETT- FNS1) Nutritional Asmnt/Malnutrition Patient General Information Nutritional Screening High Risk Diagnosis UTI, Scrotal wound, urethral fistula Pertinent Medical Hx/Surgical Hx dementia, anxiety, depression, BPH, prostate surgery, CKD. Subjective Information High risk for BMI 18.4 ( underweight). Patient appears to be moderately malnourished and missing teeth. Current Diet Order/ Nutrition Support Pureed Patient / S.O Not Indicated Pertinent Medications abx Pertinent Labs (07/16) Na 134, albumin 3.3 Nutritional Hx/Data Height 1.73 m Height (Calculated Centimeters) 172.7 Current Weight (lbs) 54.885 kg Weight (Calculated Kilograms) 54.9 Weight (Calculated Grams) 27353.7 [place] Body Weight 154 % [place] Body Weight 78 Body Mass Index (BMI) 18.3 Recent Weight Change No Weight Status Underweight GI Symptoms GI Symptoms None Last BM none indicated since admission Difficult in: None Food Allergies No Cultural/Ethnic/Gnosticism Belief none indicated Usual diet at home unknown Skin Integrity/Comment: Carlos 14, Intact, incision scrotum Estimated Nutritional Goals BEE in Kcals: Using Current wt Calories/Kcals/Kg 55kg CBW 30-35 kcal/kg Kcals Calculated ~4063-2613 kcal/day Protein: Using Current wt Protein g/k.2-1.5gm/kg Protein Calculated 65-80 gm/day Fluid: ml ~7771-4736 ml/day Nutritional Problem 1. Problem Problem Altered nutrition related lab values related to Etiology electrolyte imbalance aeb Signs/Symptoms: Na 134 Intervention/Recommendation Comments 1. Continue pureed diet as tolerated by patient. Provide assistance with all meals. Pureed diet comes with MiniLuxe shake for added calories. Encourage intake. Expected Outcomes/Goals Expected Outcomes/Goals Oral intake >75% of meals, weight stable, nutrition related labs WNL F/U MR 4/2-4
--- NOTE | 2018-07-18 17:17 | Consultation ---
DATE OF CONSULTATION: 07/17/2018 INFECTIOUS DISEASE CONSULTATION REFERRING PHYSICIAN: Dr. Callejas. REASON FOR CONSULTATION: Scrotal wound infection and urinary tract infection. HISTORY OF PRESENT ILLNESS: The patient is a 78-year-old male admitted recently on 06/21/2018 for leukocytosis and scrotal cellulitis. He has a history of hypertension, dyslipidemia, peptic ulcer disease, arthritis, dementia, cachexia, brought from [facility] for weakness and swelling on 06/21/2018. The patient found to have a fever of 100 degrees Fahrenheit, went up to 100.8 degree Fahrenheit with WBC count 15,300. The patient was diagnosed to have sepsis secondary to scrotal cellulitis and urinary tract infection. Dr. Orr was called and I and D was performed. Urine culture grew extended spectrum beta-lactamase Escherichia coli and the wound culture grew viridans streptococci as well as extended spectrum beta-lactamase Escherichia coli. The patient was discharged to nursing facility. The patient was brought back as there was leakage from urine catheter insertion site and swelling of the scrotal wound. Scrotal wound cultures not done, although urine culture grew gram-negative rods. Urinalysis shows trace pyuria and bacteria. The patient was started on vancomycin and Zosyn and ID consult was called for antibiotic management. On this admission, the patient's temperature was 99.7 degrees Fahrenheit that went to 100.8 degrees Fahrenheit. The patient's WBC count was 5600. ALLERGIES: NKDA. MEDICATIONS: As per medication reconciliation sheet. PAST MEDICAL HISTORY: Hypertension, osteoarthritis, dementia, benign prostatic hypertrophy, peptic ulcer disease, and dyslipidemia. ALLERGIES: NKDA. SOCIAL HISTORY: The patient lives in a [facility]. No history of smoking, alcohol or drug use. PSYCHIATRIC HISTORY: Bipolar disorder and dementia. FAMILY HISTORY: Not available. SOCIAL HISTORY: Unknown. IMMUNIZATION STATUS: Unknown. REVIEW OF SYSTEMS: The patient is a poor historian, unable to give any history. The patient developed fevers just now. Otherwise, no fever on presentation. PHYSICAL EXAMINATION: VITAL SIGNS: Shows temperature is 100.8 degrees Fahrenheit, pulse 100, respirations 17, blood pressure is 100/56. GENERAL: The patient is comfortable lying in the bed, not in acute distress. HEENT: Head is normocephalic, atraumatic. Oral cavity moist, pink tongue. NECK: Supple, no JVD, no bruit. Trachea in midline. CHEST: Bilateral breath sounds. No crackles or wheezing. HEART: S1, S2 within normal limits. Regular rhythm. No murmur or gallop. ABDOMEN: Soft, nontender, and nondistended. Bowel sounds present. EXTREMITIES: No cyanosis, no clubbing, no edema. GENITOURINARY: The patient's scrotal area: There is open surgical wound with well defined border and pink base. There was some pus, coming out from the wound as per the RN. sent for culture. NEUROLOGIC: Alert and awake. LABORATORY DATA: WBC of 5600, hemoglobin 9.1, hematocrit 33.6, platelets are 350,000 and neutrophils 47%. Sodium is 134, potassium 4.5, chloride 102, bicarbonate is 25, BUN is 19, creatinine 0.9, and glucose is 91. Urinalysis with large blood, positive nitrite, large leukoesterase, WBC 25-50 and RBC 50-100. Urine culture grew more than 100,000 gram-negative rods. Blood culture 2 sets are negative so far. MRSA screen is positive. Chest x-ray showed no active disease, atelectasis. IMPRESSION: 1. Urinary tract infection. 2. Infected scrotal wound mostly secondary to urinary swelling, although looks clean. No surrounding erythema. 3. Dementia. 4. Benign prostatic hypertrophy. 5. Peptic ulcer disease. 6. Arthritis. 7. Hypertension. RECOMMENDATIONS: We will change antibiotic Zosyn to meropenem as the patient has history of extended spectrum beta-lactamase Escherichia coli infection in the recent precautions. Continue vancomycin, take futher decision depending on the wound culture report. If wound culture does not grow methicillin-resistant staphylococcus aureus, we will discontinue vancomycin. Check the renal ultrasound as the patient has recurrent urinary tract infection. As far as the scrotal infection is concerned, the patient may get better with wound care only. Check renal ultrasound as the patient has recurrent urinary tract infection. Thank you, Dr. Callejas for involving me in taking care of this patient. JOB# [id number] MIGUEL ANGEL
[2018-07-18] MEDS: D5-0.45NS 1,000 ML IV SCH (17:24)
[2018-07-19 06:53] LABS: % EOSINOPHILS 10.1 % (0.0-5.0); % LYMPHOCYTES 27.3 % (20.0-50.0); % MONOCYTES 7.8 % (2.0-10.0); % NEUTROPHILS 54.8 % (40.0-80.0); EOSINOPHILE ABSOLUTE 0.9 Th/cmm (0.1-0.4); HEMATOCRIT 32.7 % (41.0-60); HEMOGLOBIN 10.7 gm/dL (12-16); LYMPHOCYTE ABSOLUTE 2.3 Th/cmm (1.5-3.0); MEAN CELL VOLUME 85.9 fl (80-99); MEAN CORPUSCULAR HEMOGLOBIN 28.1 pg (27.0-31.0); MEAN CORPUSCULAR HGB CONC 32.7 pg (28.0-36.0); MEAN PLATELET VOLUME 7.4 fl; MONOCYTE ABSOLUTE 0.7 Th/cmm (0.3-1.0); NEUTROPHILE ABSOLUTE 4.6 Th/cmm (1.8-8.0); PLATELET COUNT 315 Th/cmm (150-400); RED BLOOD COUNT 3.81 Mil/cmm (3.80-5.80); RED CELL DISTRIBUTION WIDTH 17.7 % (11.5-20.0); WHITE BLOOD COUNT 8.5 Th/cmm (4.8-10.8)
[2018-07-19 07:19] LABS: ALB/GLOB RATIO 0.6 (1.0-1.8); ALBUMIN 2.6 gm/dL (4.2-5.5); ALKALINE PHOSPHATASE 56 U/L (34-104); ANION GAP 10.3 (7.0-16.0); BILIRUBIN,TOTAL 0.6 mg/dL (0.3-1.0); BUN - UREA NITROGEN 13 mg/dL (7-25); CALCIUM SERUM 8.8 mg/dL (8.6-10.3); CHLORIDE 108 mEq/L (98-107); GLUCOSE 83 mg/dL (70-105); LIPASE 19 U/L (11-82); POTASSIUM SERUM 4.3 mEq/L (3.5-5.1); SGOT 13 U/L (13-39); SGPT/ALT 10 U/L (7-52); SODIUM SERUM 137 mEq/L (136-145); TOTAL PROTEIN,SERUM 6.8 gm/dL (6.0-8.3)
[2018-07-19] MEDS: Lactobacillus Rhamnosus GG 15 Billion CFU CAP.SPRINK PO SCH ×2 (08:43→16:21)
[2018-07-19] MEDS: Vitamin D3 2,000 IU SGL PO SCH (08:43)
[2018-07-19] MEDS: Meropenem 500 MG in Sodium Chloride 0.9% 100 ML IV SCH ×2 (08:44→23:06)
--- NOTE | 2018-07-19 10:17 | Internal Medicine Prog Note ---
Internal Medicine Subjective - Subjective Service Date: 07/19/18 Patient is:: awake, in bed, confused, other (pt admitted with fever and leakage of urinary cath) Per staff patient has:: no adverse event, confused Internal Medicine Objective - Results Result Diagrams: 07/19/18 06:20 07/19/18 06:20 Recent Labs: Laboratory Last Values WBC 8.5 Th/cmm (4.8-10.8) 07/19/18 06:20 RBC 3.81 Mil/cmm (3.80-5.80) 07/19/18 06:20 Hgb 10.7 gm/dL (12-16) L 07/19/18 06:20 Hct 32.7 % (41.0-60) L 07/19/18 06:20 MCV 85.9 fl (80-99) 07/19/18 06:20 MCH 28.1 pg (27.0-31.0) 07/19/18 06:20 MCHC Differential 32.7 pg (28.0-36.0) 07/19/18 06:20 RDW 17.7 % (11.5-20.0) 07/19/18 06:20 Plt Count 315 Th/cmm (150-400) 07/19/18 06:20 MPV 7.4 fl 07/19/18 06:20 Neutrophils % 54.8 % (40.0-80.0) 07/19/18 06:20 Lymphocytes % 27.3 % (20.0-50.0) 07/19/18 06:20 Monocytes % 7.8 % (2.0-10.0) 07/19/18 06:20 Eosinophils % 10.1 % (0.0-5.0) H 07/19/18 06:20 Basophils % 0.0 % (0.0-2.0) 07/19/18 06:20 PT 11.0 SECONDS (9.5-11.5) 07/16/18 14:00 INR 1.06 (0.5-1.4) 07/16/18 14:00 PTT (Actin FS) 22.3 SECONDS (26.0-38.0) L 07/16/18 14:00 Sodium 137 mEq/L (136-145) 07/19/18 06:20 Potassium 4.3 mEq/L (3.5-5.1) 07/19/18 06:20 Chloride 108 mEq/L (98-107) H 07/19/18 06:20 Carbon Dioxide 23.0 mEq/L (21.0-31.0) 07/19/18 06:20 Anion Gap 10.3 (7.0-16.0) 07/19/18 06:20 BUN 13 mg/dL (7-25) 07/19/18 06:20 Creatinine 1.0 mg/dL (0.7-1.3) 07/19/18 06:20 Est GFR ( Amer) TNP 07/19/18 06:20 Est GFR (Non-Af Amer) TNP 07/19/18 06:20 BUN/Creatinine Ratio 13.0 07/19/18 06:20 Glucose 83 mg/dL (70-105) 07/19/18 06:20 Whole Bld Lactic Acid 1.48 mmol/L (0.60-1.99) 07/16/18 14:00 Calcium 8.8 mg/dL (8.6-10.3) 07/19/18 06:20 Total Bilirubin 0.6 mg/dL (0.3-1.0) 07/19/18 06:20 AST 13 U/L (13-39) 07/19/18 06:20 ALT 10 U/L (7-52) 07/19/18 06:20 Alkaline Phosphatase 56 U/L (34-104) 07/19/18 06:20 Creatine Kinase 88 U/L (30-223) 07/16/18 14:00 Troponin I 0.01 ng/mL (0.01-0.05) 07/16/18 14:00 Total Protein 6.8 gm/dL (6.0-8.3) 07/19/18 06:20 Albumin 2.6 gm/dL (4.2-5.5) L 07/19/18 06:20 Globulin 4.2 gm/dL 07/19/18 06:20 Albumin/Globulin Ratio 0.6 (1.0-1.8) L 07/19/18 06:20 Lipase 19 U/L (11-82) 07/19/18 06:20 TSH 2.37 uIU/ml (0.34-5.60) 07/19/18 06:20 Urine Source MIDSTREAM 03/29/19 16:15 Urine Color YELLOW 07/16/18 16:15 Urine Clarity CLOUDY (CLEAR) 07/16/18 16:15 Urine pH 7.0 (4.6 - 8.0) 07/16/18 16:15 Ur Specific [place] 1.025 (1.005-1.030) 07/16/18 16:15 Urine Protein 100 mg/dL (NEGATIVE) H 07/16/18 16:15 Urine Glucose (UA) NEGATIVE mg/dL (NEGATIVE) 07/16/18 16:15 Urine Ketones NEGATIVE mg/dL (NEGATIVE) 07/16/18 16:15 Urine Blood LARGE (NEGATIVE) H 07/16/18 16:15 Urine Nitrate POSITIVE (NEGATIVE) H 07/16/18 16:15 Urine Bilirubin NEGATIVE (NEGATIVE) 07/16/18 16:15 Urine Urobilinogen 0.2 E.U./dL (0.2 - 1.0) 07/16/18 16:15 Ur Leukocyte Esterase LARGE (NEGATIVE) H 07/16/18 16:15 Urine RBC 50-100 /hpf (0-5) H 07/16/18 16:15 Urine WBC 25-50 /hpf (0-5) H 07/16/18 16:15 Ur Epithelial Cells FEW /lpf (FEW) 07/16/18 16:15 - Physical Exam Vitals and I&O: Vital Signs Temp 98.8 F 07/19/18 08:00 Pulse 79 07/19/18 04:00 Resp 18 07/19/18 04:00 BP 95/57 07/19/18 04:00 Pulse Ox 99 07/19/18 04:00 Intake & Output 07/18/18 07/19/18 07/19/18 18:59 06:59 18:59 Intake Total 1093.333 350 Output Total 850 Balance 1093.333 -500 Weight (lbs) 54.885 kg Intake: Intake, IV Amount 1093.333 350 D5-0.45NS 1,000 ml @ 50 993.333 mls/hr IV .Q20H [facility] Rx#: [id number] Meropenem 500 mg In 100 100 Sodium Chloride 0.9% 100 ml @ 100 mls/hr IV Q12HR [facility] Rx#:[id number] Vancomycin HCl 1 gm In 250 Sodium Chloride 0.9% 250 ml @ 165 mls/hr IV Q24H [facility] Rx#:[id number] Output: Urine 850 Other: Weight Source Bedscale Active Medications: Current Medications Acetaminophen (Tylenol) 650 mg PO Q6H PRN PRN Reason: Pain or Fever >101 Stop: 09/15/18 21:18 Al Hydrox/Mg Hydrox/Simethicone (Maalox) 30 ml PO Q4H PRN PRN Reason: GI DISTRESS Stop: 09/15/18 14:55 Donepezil HCl (Aricept) 5 mg PO DAILY [facility] Stop: 09/16/18 08:59 Last Admin: 07/19/18 08:43 Dose: 5 mg Finasteride (Proscar) 5 mg PO DAILY [facility]; Protocol Stop: 09/16/18 08:59 Last Admin: 07/19/18 08:43 Dose: 5 mg Heparin Sodium (Porcine) (Heparin) 5,000 units SUBQ Q12HR [facility] Stop: 09/15/18 20:59 Last Admin: 07/19/18 08:45 Dose: 5,000 units Vancomycin HCl 1 gm/ Sodium (Chloride) 250 mls @ 165 mls/hr IV Q24H [facility] Stop: 09/15/18 21:59 Last Infusion: 07/19/18 00:00 Dose: Infused Dextrose/Sodium Chloride (D5-0.45ns) 1,000 mls @ 50 mls/hr IV .Q20H [facility] Stop: 09/15/18 21:20 Last Admin: 07/18/18 17:24 Dose: 50 mls/hr Meropenem 500 mg/ Sodium (Chloride) 100 mls @ 100 mls/hr IV Q12HR [facility] Stop: 09/16/18 00:00 Last Admin: 07/19/18 08:44 Dose: 100 mls/hr Lactobacillus Rhamnosus (Culturelle 15b) 1 each PO BID [facility] Stop: 09/15/18 16:59 Last Admin: 07/19/18 08:43 Dose: 1 each Lorazepam (Ativan) 1 mg PO Q4HR PRN; Protocol PRN Reason: Agitation Stop: 09/16/18 22:21 Lorazepam (Ativan) 1 mg IM Q4HR PRN; Protocol PRN Reason: Agitation Stop: 09/16/18 22:28 Last Admin: 07/18/18 22:49 Dose: 1 mg Miscellaneous (Vte Chemical Prophylaxis Screen/ Admission) 1 ea MC PRN PRN PRN Reason: PROTOCOL Stop: 09/15/18 09:51 Miscellaneous (Vancomycin Iv Per Pharmacy) 1 ea MC DAILY [facility] Stop: 09/17/18 08:59 Mupirocin (Bactroban Oint) 1 appl NS BID [facility] Stop: 07/22/18 09:01 Last Admin: 07/19/18 08:44 Dose: 1 appl Tamsulosin HCl (Flomax) 0.4 mg PO HS [facility] Stop: 09/15/18 20:59 Last Admin: 07/18/18 22:02 Dose: Not Given Vitamin D (Vitamin D3) 4,000 iu PO DAILY [facility] Stop: 09/16/18 08:59 Last Admin: 07/19/18 08:43 Dose: 4,000 iu General: weak, congested HEENT: NC/AT Neck: Supple Lungs: CTAB Cardiovascular: RRR, Normal S1, Normal S2 Abdomen: soft, non-tender Extremities: clear Neurological: no change - Procedures Procedures: Procedures Procedure Code Date DRAINAGE OF SCROTUM, OPEN APPROACH [id number] 06/20/18 INSPECTION OF BLADDER, ENDO [id number] 06/20/18 Internal Medicine Assmt/Plan - Assessment Assessment: uti scrotum wound urethral fistula fever anemia hyponatremia htn malnutricion arthritis dementia bipolar - Plan Plan: asper order sheet Nutritional Asmnt/Malnutr-PDOC - Dietary Evaluation Malnutrition Findings (Please click <Entered> for more info): Nutritional Asmnt/Malnutrition Start: 07/17/18 13: 14 Text: Status: Complete Freq: Protocol: Document 07/17/18 13:14 [email or web address] (Rec: 07/17/18 13:21 [email or web address] TRIPLETT- FNS1) Nutritional Asmnt/Malnutrition Patient General Information Nutritional Screening High Risk Diagnosis UTI, Scrotal wound, urethral fistula Pertinent Medical Hx/Surgical Hx dementia, anxiety, depression, BPH, prostate surgery, CKD. Subjective Information High risk for BMI 18.4 ( underweight). Patient appears to be moderately malnourished and missing teeth. Current Diet Order/ Nutrition Support Pureed Patient / S.O Not Indicated Pertinent Medications abx Pertinent Labs (07/16) Na 134, albumin 3.3 Nutritional Hx/Data Height 1.73 m Height (Calculated Centimeters) 172.7 Current Weight (lbs) 54.885 kg Weight (Calculated Kilograms) 54.9 Weight (Calculated Grams) 21055.7 [place] Body Weight 154 % [place] Body Weight 78 Body Mass Index (BMI) 18.3 Recent Weight Change No Weight Status Underweight GI Symptoms GI Symptoms None Last BM none indicated since admission Difficult in: None Food Allergies No Cultural/Ethnic/Anglican Belief none indicated Usual diet at home unknown Skin Integrity/Comment: Carlos 14, Intact, incision scrotum Estimated Nutritional Goals BEE in Kcals: Using Current wt Calories/Kcals/Kg 55kg CBW 30-35 kcal/kg Kcals Calculated ~8805-3637 kcal/day Protein: Using Current wt Protein g/k.2-1.5gm/kg Protein Calculated 65-80 gm/day Fluid: ml ~0106-7853 ml/day Nutritional Problem 1. Problem Problem Altered nutrition related lab values related to Etiology electrolyte imbalance aeb Signs/Symptoms: Na 134 Intervention/Recommendation Comments 1. Continue pureed diet as tolerated by patient. Provide assistance with all meals. Pureed diet comes with Genero shake for added calories. Encourage intake. Expected Outcomes/Goals Expected Outcomes/Goals Oral intake >75% of meals, weight stable, nutrition related labs WNL F/U MR 4/2-4
--- NOTE | 2018-07-19 13:39 | Consultation ---
DATE OF CONSULTATION: REASON FOR CONSULTATION: Low grade fever, urinary tract infection and leaking Connolly catheter. 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 I had put in a Connolly for allowing this area to heal and dry up the wound. It seems as though he came in because the catheter was not draining well and urine was leaking through the wound, which is to be expected if there is no proper drainage. Additionally, he had low-grade temperature as well, but his white count was normal. On exam, his scrotal wound seems to be granulating very well and closing up actually, and the Connolly is draining quite clear and yellow urine. 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 This was also planned last time he was here. PHYSICAL EXAMINATION: VITAL SIGNS: Currently, on exam, he is afebrile, temperature 98.8, although he had 100.5 earlier this morning. Blood pressure 95/57, heart rate 79. ABDOMEN: Soft, nondistended, nontender. Scrotal wound is healthy, pink, granulating and a Connolly catheter, no blood or drainage and clear water color. LABORATORY DATA: His white count is 8.5, hemoglobin 10.7, BUN 13, creatinine 1.0. Urine culture is growing E. coli, which is to be expected due to past history of the abscess and the catheter. It is an ESBL organism. It is sensitive to imipenem and tetracycline and nitrofurantoin, but at a very high JAH. Also amikacin at the high JAH. Seems as though imipenem is the last antibiotic left for him to be used. Bactrim also to some extent. The patient is currently getting meropenem and vancomycin. IMPRESSION: Urethrocutaneous fistula, temporarily treated with a Connolly, but long-term requires suprapubic diversion. We will schedule it once we have a consent and clearance both as we cannot have the patient sign the consent due to confusion and a poorly defined schizoaffective disorder. He also does not require the Proscar and the Flomax as a suprapubic tube will divert the urine permanently. The patient's other medical problems include hypertension, dementia, arthritis, dyslipidemia. JOB# [id number]
[2018-07-19 14:02] LABS: URINE BACTERIA 4+ /hpf (NONE SEEN)
[2018-07-19] MEDS: D5-0.45NS 1,000 ML IV SCH (23:05)
--- NOTE | 2018-07-20 01:21 | Consultation ---
DATE OF CONSULTATION: 07/19/2018 IDENTIFYING INFORMATION: The patient is a 78-year-old male. REASON FOR CONSULTATION: I was asked to see the patient because of confusion, dementia, and rambling speech. HISTORY OF PRESENT ILLNESS: The patient came from a [facility]. He was admitted to telemetry. The patient was rambling. He could not give me much information. He reports that he is and has 11 children, that he has 11th grade of education, that he believed he was 49 years of age when the reality was 78. The patient is unable to participate in a meaningful conversation or make safe plan for his self-care. He is unpredictable and impulsive. MEDICAL HISTORY: The patient has history of hypertension, arthritis, and dementia. He came from a nursing facility. ALLERGIES: He has no known drug allergy. MEDICATIONS: The patient has been on Aricept 5 mg daily. No other psychotropic medication. FAMILY AND SOCIAL HISTORY: Unobtainable. The patient came from a nursing facility. MENTAL STATUS EXAMINATION: The patient is appropriately dressed, not very well groomed. He was alert. He has rambling speech. He believes he is 49 years of age; in reality, he is 78. He believes that he has 11 children. He does not know where he is, why he is here. Long and short term is poor. When asked about suicide and homicide, he would not answer, and when asked about hallucination, he could not answer. His insight and judgment are impaired. IMPRESSION: Dementia and depression, not otherwise specified. PLAN: I would recommend, when medically cleared, he could be started on Lexapro 5 mg daily. The patient needs follow up with Psychiatry on discharge. Thank you very much for allowing me to participate in the care of this most interesting gentleman. JOB# [id number]
--- NOTE | 2018-07-20 07:12 | Infectious Disease Prog Note ---
Infectious Disease Subjective - Review of Systems Service Date: 07/20/18 Subjective: no fever. Infectious Disease Objective - Results Result Diagrams: 07/19/18 06:20 07/19/18 06:20 Recent Labs: Laboratory Last Values WBC 8.5 Th/cmm (4.8-10.8) 07/19/18 06:20 RBC 3.81 Mil/cmm (3.80-5.80) 07/19/18 06:20 Hgb 10.7 gm/dL (12-16) L 07/19/18 06:20 Hct 32.7 % (41.0-60) L 07/19/18 06:20 MCV 85.9 fl (80-99) 07/19/18 06:20 MCH 28.1 pg (27.0-31.0) 07/19/18 06:20 MCHC Differential 32.7 pg (28.0-36.0) 07/19/18 06:20 RDW 17.7 % (11.5-20.0) 07/19/18 06:20 Plt Count 315 Th/cmm (150-400) 07/19/18 06:20 MPV 7.4 fl 07/19/18 06:20 Neutrophils % 54.8 % (40.0-80.0) 07/19/18 06:20 Lymphocytes % 27.3 % (20.0-50.0) 07/19/18 06:20 Monocytes % 7.8 % (2.0-10.0) 07/19/18 06:20 Eosinophils % 10.1 % (0.0-5.0) H 07/19/18 06:20 Basophils % 0.0 % (0.0-2.0) 07/19/18 06:20 PT 11.0 SECONDS (9.5-11.5) 07/16/18 14:00 INR 1.06 (0.5-1.4) 07/16/18 14:00 PTT (Actin FS) 22.3 SECONDS (26.0-38.0) L 07/16/18 14:00 Sodium 137 mEq/L (136-145) 07/19/18 06:20 Potassium 4.3 mEq/L (3.5-5.1) 07/19/18 06:20 Chloride 108 mEq/L (98-107) H 07/19/18 06:20 Carbon Dioxide 23.0 mEq/L (21.0-31.0) 07/19/18 06:20 Anion Gap 10.3 (7.0-16.0) 07/19/18 06:20 BUN 13 mg/dL (7-25) 07/19/18 06:20 Creatinine 1.0 mg/dL (0.7-1.3) 07/19/18 06:20 Est GFR ( Amer) TNP 07/19/18 06:20 Est GFR (Non-Af Amer) TNP 07/19/18 06:20 BUN/Creatinine Ratio 13.0 07/19/18 06:20 Glucose 83 mg/dL (70-105) 07/19/18 06:20 Whole Bld Lactic Acid 1.48 mmol/L (0.60-1.99) 07/16/18 14:00 Calcium 8.8 mg/dL (8.6-10.3) 07/19/18 06:20 Total Bilirubin 0.6 mg/dL (0.3-1.0) 07/19/18 06:20 AST 13 U/L (13-39) 07/19/18 06:20 ALT 10 U/L (7-52) 07/19/18 06:20 Alkaline Phosphatase 56 U/L (34-104) 07/19/18 06:20 Creatine Kinase 88 U/L (30-223) 07/16/18 14:00 Troponin I 0.01 ng/mL (0.01-0.05) 07/16/18 14:00 Total Protein 6.8 gm/dL (6.0-8.3) 07/19/18 06:20 Albumin 2.6 gm/dL (4.2-5.5) L 07/19/18 06:20 Globulin 4.2 gm/dL 07/19/18 06:20 Albumin/Globulin Ratio 0.6 (1.0-1.8) L 07/19/18 06:20 Lipase 19 U/L (11-82) 07/19/18 06:20 TSH 2.37 uIU/ml (0.34-5.60) 07/19/18 06:20 Urine Source MIDSTREAM 07/16/18 16:15 Urine Color YELLOW 07/16/18 16:15 Urine Clarity CLOUDY (CLEAR) 07/16/18 16:15 Urine pH 7.0 (4.6 - 8.0) 07/16/18 16:15 Ur Specific [place] 1.025 (1.005-1.030) 07/16/18 16:15 Urine Protein 100 mg/dL (NEGATIVE) H 07/16/18 16:15 Urine Glucose (UA) NEGATIVE mg/dL (NEGATIVE) 07/16/18 16:15 Urine Ketones NEGATIVE mg/dL (NEGATIVE) 07/16/18 16:15 Urine Blood LARGE (NEGATIVE) H 07/16/18 16:15 Urine Nitrate POSITIVE (NEGATIVE) H 07/16/18 16:15 Urine Bilirubin NEGATIVE (NEGATIVE) 07/16/18 16:15 Urine Urobilinogen 0.2 E.U./dL (0.2 - 1.0) 07/16/18 16:15 Ur Leukocyte Esterase LARGE (NEGATIVE) H 07/16/18 16:15 Urine RBC 50-100 /hpf (0-5) H 07/16/18 16:15 Urine WBC 25-50 /hpf (0-5) H 07/16/18 16:15 Ur Epithelial Cells FEW /lpf (FEW) 07/16/18 16:15 Urine Bacteria 4+ /hpf (NONE SEEN) H 07/16/18 16:15 Vancomycin Trough 9.1 ug/mL (5-10) 07/19/18 21:00 - Physical Exam Vitals and I&O: Vital Signs Temp 97.9 F 07/19/18 23:02 Pulse 87 07/19/18 23:02 Resp 18 07/20/18 04:00 BP 109/78 07/19/18 23:02 Pulse Ox 98 07/19/18 23:02 Intake & Output 07/19/18 07/20/18 07/20/18 18:59 06:59 18:59 Intake Total 1980 200 Output Total 750 1350 Balance 1230 -1150 Weight (lbs) 58.151 kg 58.06 kg Intake: Intake, IV Amount 1100 D5-0.45NS 1,000 ml @ 50 1000 mls/hr IV .Q20H [facility] Rx#: [id number] Meropenem 500 mg In 100 Sodium Chloride 0.9% 100 ml @ 100 mls/hr IV Q12HR [facility] Rx#:[id number] Oral 880 200 Output: Urine 1350 Stool 750 Other: # Bowel Movements 0 2 Weight Source Bedscale Bedscale Active Medications: Current Medications Acetaminophen (Tylenol) 650 mg PO Q6H PRN PRN Reason: Pain or Fever >101 Stop: 09/15/18 21:18 Last Admin: 07/19/18 21:38 Dose: 650 mg Al Hydrox/Mg Hydrox/Simethicone (Maalox) 30 ml PO Q4H PRN PRN Reason: GI DISTRESS Stop: 09/15/18 14:55 Donepezil HCl (Aricept) 5 mg PO DAILY [facility] Stop: 09/16/18 08:59 Last Admin: 07/19/18 08:43 Dose: 5 mg Escitalopram Oxalate (Lexapro) 5 mg PO DAILY [facility]; Protocol Stop: 09/18/18 08:59 Finasteride (Proscar) 5 mg PO DAILY [facility]; Protocol Stop: 09/16/18 08:59 Last Admin: 07/19/18 08:43 Dose: 5 mg Heparin Sodium (Porcine) (Heparin) 5,000 units SUBQ Q12HR [facility] Stop: 09/15/18 20:59 Last Admin: 07/19/18 21:43 Dose: Not Given Vancomycin HCl 1 gm/ Sodium (Chloride) 250 mls @ 165 mls/hr IV Q24H [facility] Stop: 09/15/18 21:59 Last Admin: 07/20/18 00:33 Dose: 165 mls/hr Dextrose/Sodium Chloride (D5-0.45ns) 1,000 mls @ 50 mls/hr IV .Q20H [facility] Stop: 09/15/18 21:20 Last Admin: 07/19/18 23:05 Dose: 50 mls/hr Meropenem 500 mg/ Sodium (Chloride) 100 mls @ 100 mls/hr IV Q12HR [facility] Stop: 09/16/18 00:00 Last Admin: 07/19/18 23:06 Dose: 100 mls/hr Lactobacillus Rhamnosus (Culturelle 15b) 1 each PO BID [facility] Stop: 09/15/18 16:59 Last Admin: 07/19/18 16:21 Dose: 1 each Lorazepam (Ativan) 1 mg PO Q4HR PRN; Protocol PRN Reason: Agitation Stop: 09/16/18 22:21 Lorazepam (Ativan) 1 mg IM Q4HR PRN; Protocol PRN Reason: Agitation Stop: 09/16/18 22:28 Last Admin: 07/19/18 22:56 Dose: 1 mg Miscellaneous (Vte Chemical Prophylaxis Screen/ Admission) 1 ea PRN PRN PRN Reason: PROTOCOL Stop: 09/15/18 09:51 Miscellaneous (Vancomycin Iv Per Pharmacy) 1 ea [facility] DAILY [facility] Stop: 09/17/18 08:59 Mupirocin (Bactroban Oint) 1 appl NS BID [facility] Stop: 07/22/18 09:01 Last Admin: 07/19/18 16:21 Dose: 1 appl Tamsulosin HCl (Flomax) 0.4 mg PO HS [facility] Stop: 09/15/18 20:59 Last Admin: 07/19/18 21:38 Dose: 0.4 mg Vitamin D (Vitamin D3) 4,000 iu PO DAILY [facility] Stop: 09/16/18 08:59 Last Admin: 07/19/18 08:43 Dose: 4,000 iu General: no acute distress, cachectic HEENT: atraumatic, normocephalic, PERRLA, EOMI Neck: supple, no thyromegaly, no lymphadenopathy Cardiovascular: S1S2, regular Lungs: clear to auscultation bilaterally, clear to percussion Abdomen: soft, bowel sounds, no tender, no distended, no mass, no rebound, no hepatomegaly, no splenomegaly Extremities: no cyanosis, no clubbing, no edema Neurological: awake, alert Skin: other (scrotal wound clean.) - Procedures Procedures: Procedures Procedure Code Date DRAINAGE OF SCROTUM, OPEN APPROACH [id number] 06/20/18 INSPECTION OF BLADDER, ENDO [id number] 06/20/18 Infectious Disease Assmt/Plan - Problem List Patient Problems: All Active Problems URINE LEAKAGE AROUND CHRISTIE CATHETER (Acute) - Assessment Assessment: 1. UTI, ESBL E Coli. 2.Scrotal wound 3. Dementia. - Plan Plan: Continue vanco IV and zosyn. Depending on the culture report decide final antibiotic therapy. 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 Subjective Information High risk for BMI 18.4 ( underweight). Patient appears to be moderately malnourished and missing teeth. Current Diet Order/ Nutrition Support Pureed Patient / S.O Not Indicated Pertinent Medications abx Pertinent Labs (07/16) Na 134, albumin 3.3 Nutritional Hx/Data Height 1.73 m Height (Calculated Centimeters) 172.7 Current Weight (lbs) 54.885 kg Weight (Calculated Kilograms) 54.9 Weight (Calculated Grams) 82077.7 [place] Body Weight 154 % [place] Body Weight 78 Body Mass Index (BMI) 18.3 Recent Weight Change No Weight Status Underweight GI Symptoms GI Symptoms None Last BM none indicated since admission Difficult in: None Food Allergies No Cultural/Ethnic/Nondenominational Belief none indicated Usual diet at home unknown Skin Integrity/Comment: Carlos 14, Intact, incision scrotum Estimated Nutritional Goals BEE in Kcals: Using Current wt Calories/Kcals/Kg 55kg CBW 30-35 kcal/kg Kcals Calculated ~9140-1978 kcal/day Protein: Using Current wt Protein g/k.2-1.5gm/kg Protein Calculated 65-80 gm/day Fluid: ml ~8344-8732 ml/day Nutritional Problem 1. Problem Problem Altered nutrition related lab values related to Etiology electrolyte imbalance aeb Signs/Symptoms: Na 134 Intervention/Recommendation Comments 1. Continue pureed diet as tolerated by patient. Provide assistance with all meals. Pureed diet comes with [place] shake for added calories. Encourage intake. Expected Outcomes/Goals Expected Outcomes/Goals Oral intake >75% of meals, weight stable, nutrition related labs WNL F/U MR 4/2-4
--- NOTE | 2018-07-20 07:19 | Infectious Disease Prog Note ---
Infectious Disease Subjective - Review of Systems Service Date: 07/20/18 Subjective: no fever. Infectious Disease Objective - Results Result Diagrams: 07/19/18 06:20 07/19/18 06:20 Recent Labs: Laboratory Last Values WBC 8.5 Th/cmm (4.8-10.8) 07/19/18 06:20 RBC 3.81 Mil/cmm (3.80-5.80) 07/19/18 06:20 Hgb 10.7 gm/dL (12-16) L 07/19/18 06:20 Hct 32.7 % (41.0-60) L 07/19/18 06:20 MCV 85.9 fl (80-99) 07/19/18 06:20 MCH 28.1 pg (27.0-31.0) 07/19/18 06:20 MCHC Differential 32.7 pg (28.0-36.0) 07/19/18 06:20 RDW 17.7 % (11.5-20.0) 07/19/18 06:20 Plt Count 315 Th/cmm (150-400) 07/19/18 06:20 MPV 7.4 fl 07/19/18 06:20 Neutrophils % 54.8 % (40.0-80.0) 07/19/18 06:20 Lymphocytes % 27.3 % (20.0-50.0) 07/19/18 06:20 Monocytes % 7.8 % (2.0-10.0) 07/19/18 06:20 Eosinophils % 10.1 % (0.0-5.0) H 07/19/18 06:20 Basophils % 0.0 % (0.0-2.0) 07/19/18 06:20 PT 11.0 SECONDS (9.5-11.5) 07/16/18 14:00 INR 1.06 (0.5-1.4) 07/16/18 14:00 PTT (Actin FS) 22.3 SECONDS (26.0-38.0) L 07/16/18 14:00 Sodium 137 mEq/L (136-145) 07/19/18 06:20 Potassium 4.3 mEq/L (3.5-5.1) 07/19/18 06:20 Chloride 108 mEq/L (98-107) H 07/19/18 06:20 Carbon Dioxide 23.0 mEq/L (21.0-31.0) 07/19/18 06:20 Anion Gap 10.3 (7.0-16.0) 07/19/18 06:20 BUN 13 mg/dL (7-25) 07/19/18 06:20 Creatinine 1.0 mg/dL (0.7-1.3) 07/19/18 06:20 Est GFR ( Amer) TNP 07/19/18 06:20 Est GFR (Non-Af Amer) TNP 07/19/18 06:20 BUN/Creatinine Ratio 13.0 07/19/18 06:20 Glucose 83 mg/dL (70-105) 07/19/18 06:20 Whole Bld Lactic Acid 1.48 mmol/L (0.60-1.99) 07/16/18 14:00 Calcium 8.8 mg/dL (8.6-10.3) 07/19/18 06:20 Total Bilirubin 0.6 mg/dL (0.3-1.0) 07/19/18 06:20 AST 13 U/L (13-39) 07/19/18 06:20 ALT 10 U/L (7-52) 07/19/18 06:20 Alkaline Phosphatase 56 U/L (34-104) 07/19/18 06:20 Creatine Kinase 88 U/L (30-223) 07/16/18 14:00 Troponin I 0.01 ng/mL (0.01-0.05) 07/16/18 14:00 Total Protein 6.8 gm/dL (6.0-8.3) 07/19/18 06:20 Albumin 2.6 gm/dL (4.2-5.5) L 07/19/18 06:20 Globulin 4.2 gm/dL 07/19/18 06:20 Albumin/Globulin Ratio 0.6 (1.0-1.8) L 07/19/18 06:20 Lipase 19 U/L (11-82) 07/19/18 06:20 TSH 2.37 uIU/ml (0.34-5.60) 07/19/18 06:20 Urine Source MIDSTREAM 07/16/18 16:15 Urine Color YELLOW 07/16/18 16:15 Urine Clarity CLOUDY (CLEAR) 07/16/18 16:15 Urine pH 7.0 (4.6 - 8.0) 07/16/18 16:15 Ur Specific [place] 1.025 (1.005-1.030) 07/16/18 16:15 Urine Protein 100 mg/dL (NEGATIVE) H 07/16/18 16:15 Urine Glucose (UA) NEGATIVE mg/dL (NEGATIVE) 07/16/18 16:15 Urine Ketones NEGATIVE mg/dL (NEGATIVE) 07/16/18 16:15 Urine Blood LARGE (NEGATIVE) H 07/16/18 16:15 Urine Nitrate POSITIVE (NEGATIVE) H 07/16/18 16:15 Urine Bilirubin NEGATIVE (NEGATIVE) 07/16/18 16:15 Urine Urobilinogen 0.2 E.U./dL (0.2 - 1.0) 07/16/18 16:15 Ur Leukocyte Esterase LARGE (NEGATIVE) H 07/16/18 16:15 Urine RBC 50-100 /hpf (0-5) H 07/16/18 16:15 Urine WBC 25-50 /hpf (0-5) H 07/16/18 16:15 Ur Epithelial Cells FEW /lpf (FEW) 07/16/18 16:15 Urine Bacteria 4+ /hpf (NONE SEEN) H 07/16/18 16:15 Vancomycin Trough 9.1 ug/mL (5-10) 07/19/18 21:00 - Physical Exam Vitals and I&O: Vital Signs Temp 97.9 F 07/19/18 23:02 Pulse 87 07/19/18 23:02 Resp 18 07/20/18 04:00 BP 109/78 07/19/18 23:02 Pulse Ox 98 07/19/18 23:02 Intake & Output 07/19/18 07/20/18 07/20/18 18:59 06:59 18:59 Intake Total 1980 200 Output Total 750 1350 Balance 1230 -1150 Weight (lbs) 58.151 kg 58.06 kg Intake: Intake, IV Amount 1100 D5-0.45NS 1,000 ml @ 50 1000 mls/hr IV .Q20H [facility] Rx#: [id number] Meropenem 500 mg In 100 Sodium Chloride 0.9% 100 ml @ 100 mls/hr IV Q12HR [facility] Rx#:[id number] Oral 880 200 Output: Urine 1350 Stool 750 Other: # Bowel Movements 0 2 Weight Source Bedscale Bedscale Active Medications: Current Medications Acetaminophen (Tylenol) 650 mg PO Q6H PRN PRN Reason: Pain or Fever >101 Stop: 09/15/18 21:18 Last Admin: 07/19/18 21:38 Dose: 650 mg Al Hydrox/Mg Hydrox/Simethicone (Maalox) 30 ml PO Q4H PRN PRN Reason: GI DISTRESS Stop: 09/15/18 14:55 Donepezil HCl (Aricept) 5 mg PO DAILY [facility] Stop: 09/16/18 08:59 Last Admin: 07/19/18 08:43 Dose: 5 mg Escitalopram Oxalate (Lexapro) 5 mg PO DAILY [facility]; Protocol Stop: 09/18/18 08:59 Finasteride (Proscar) 5 mg PO DAILY [facility]; Protocol Stop: 09/16/18 08:59 Last Admin: 07/19/18 08:43 Dose: 5 mg Heparin Sodium (Porcine) (Heparin) 5,000 units SUBQ Q12HR [facility] Stop: 09/15/18 20:59 Last Admin: 07/19/18 21:43 Dose: Not Given Vancomycin HCl 1 gm/ Sodium (Chloride) 250 mls @ 165 mls/hr IV Q24H [facility] Stop: 09/15/18 21:59 Last Admin: 07/20/18 00:33 Dose: 165 mls/hr Dextrose/Sodium Chloride (D5-0.45ns) 1,000 mls @ 50 mls/hr IV .Q20H [facility] Stop: 09/15/18 21:20 Last Admin: 07/19/18 23:05 Dose: 50 mls/hr Meropenem 500 mg/ Sodium (Chloride) 100 mls @ 100 mls/hr IV Q12HR [facility] Stop: 09/16/18 00:00 Last Admin: 07/19/18 23:06 Dose: 100 mls/hr Lactobacillus Rhamnosus (Culturelle 15b) 1 each PO BID [facility] Stop: 09/15/18 16:59 Last Admin: 07/19/18 16:21 Dose: 1 each Lorazepam (Ativan) 1 mg PO Q4HR PRN; Protocol PRN Reason: Agitation Stop: 09/16/18 22:21 Lorazepam (Ativan) 1 mg IM Q4HR PRN; Protocol PRN Reason: Agitation Stop: 09/16/18 22:28 Last Admin: 07/19/18 22:56 Dose: 1 mg Miscellaneous (Vte Chemical Prophylaxis Screen/ Admission) 1 ea PRN PRN PRN Reason: PROTOCOL Stop: 09/15/18 09:51 Miscellaneous (Vancomycin Iv Per Pharmacy) 1 ea [facility] DAILY [facility] Stop: 09/17/18 08:59 Mupirocin (Bactroban Oint) 1 appl NS BID [facility] Stop: 07/22/18 09:01 Last Admin: 07/19/18 16:21 Dose: 1 appl Tamsulosin HCl (Flomax) 0.4 mg PO HS [facility] Stop: 09/15/18 20:59 Last Admin: 07/19/18 21:38 Dose: 0.4 mg Vitamin D (Vitamin D3) 4,000 iu PO DAILY [facility] Stop: 09/16/18 08:59 Last Admin: 07/19/18 08:43 Dose: 4,000 iu General: no acute distress, well developed, well nourished, cachectic, other HEENT: atraumatic, normocephalic, PERRLA, EOMI, moist mucous membrane, dry, other Neck: supple, thyromegaly, lymphadenopathy, rigid, lines, tracheostomy, other Cardiovascular: S1S2, regular, irregular, systolic murmur, thrills, gallops, pacemaker, other Lungs: clear to auscultation bilaterally, clear to percussion, crackles, wheeze , rhonchi, other Abdomen: soft, no tender, no distended, no mass, no rebound, no hepatomegaly Extremities: no cyanosis, no clubbing, no edema Neurological: awake, alert Skin: intact, other (scrotal wound) - Procedures Procedures: Procedures Procedure Code Date DRAINAGE OF SCROTUM, OPEN APPROACH [id number] 06/20/18 INSPECTION OF BLADDER, ENDO [id number] 06/20/18 Infectious Disease Assmt/Plan - Problem List Patient Problems: All Active Problems URINE LEAKAGE AROUND CHRISTIE CATHETER (Acute) - Assessment Assessment: 1. UTI, ESBL E Coli. 2.Scrotal wound 3. Dementia. - Plan Plan: Continue vanco IV and meropenem.. Depending on the culture report decide final antibiotic therapy. 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 Subjective Information High risk for BMI 18.4 ( underweight). Patient appears to be moderately malnourished and missing teeth. Current Diet Order/ Nutrition Support Pureed Patient / S.O Not Indicated Pertinent Medications abx Pertinent Labs (07/16) Na 134, albumin 3.3 Nutritional Hx/Data Height 1.73 m Height (Calculated Centimeters) 172.7 Current Weight (lbs) 54.885 kg Weight (Calculated Kilograms) 54.9 Weight (Calculated Grams) 17394.7 [place] Body Weight 154 % [place] Body Weight 78 Body Mass Index (BMI) 18.3 Recent Weight Change No Weight Status Underweight GI Symptoms GI Symptoms None Last BM none indicated since admission Difficult in: None Food Allergies No Cultural/Ethnic/Restorationism Belief none indicated Usual diet at home unknown Skin Integrity/Comment: Carlos 14, Intact, incision scrotum Estimated Nutritional Goals BEE in Kcals: Using Current wt Calories/Kcals/Kg 55kg CBW 30-35 kcal/kg Kcals Calculated ~9414-5053 kcal/day Protein: Using Current wt Protein g/k.2-1.5gm/kg Protein Calculated 65-80 gm/day Fluid: ml ~5500-2347 ml/day Nutritional Problem 1. Problem Problem Altered nutrition related lab values related to Etiology electrolyte imbalance aeb Signs/Symptoms: Na 134 Intervention/Recommendation Comments 1. Continue pureed diet as tolerated by patient. Provide assistance with all meals. Pureed diet comes with Dovetail shake for added calories. Encourage intake. Expected Outcomes/Goals Expected Outcomes/Goals Oral intake >75% of meals, weight stable, nutrition related labs WNL F/U MR 4/2-4
[2018-07-20] MEDS: Lactobacillus Rhamnosus GG 15 Billion CFU CAP.SPRINK PO SCH ×2 (08:21→17:11)
[2018-07-20] MEDS: Escitalopram Oxalate 5 mg Tab PO SCH (08:21)
[2018-07-20] MEDS: Vitamin D3 2,000 IU SGL PO SCH (08:21)
[2018-07-20] MEDS: Meropenem 500 MG in Sodium Chloride 0.9% 100 ML IV SCH ×2 (08:31→21:34)
--- NOTE | 2018-07-20 10:16 | Diagnostic Imaging Report ---
Renal ultrasound HISTORY: Hydronephrosis, pyelonephritis COMPARISON: CT abdomen and pelvis on 06/20/2018 Technique: Sonography of the kidneys and urinary bladder was performed in multiple planes. FINDINGS: Exam was presented for review on 07/20/2018 The right kidney measures 9.5 x 6.5 cm demonstrating severe hydronephrosis. No focal lesions. The left kidney measures 10.1 x 6.7 cm demonstrating inferior pole cyst measuring 1.4 x 1.3 cm with internal echoes and a septation. Echogenic renal cortices are noted. There is urinary bladder debris and diffuse urinary bladder wall thickening. Connolly catheter is noted. The balloon portion may be within the prostatic urethra. Enlarged prostate gland is seen with mass effect upon the urinary bladder. IMPRESSION: Connolly catheter noted with balloon part possibly within the prostatic urethra. Recommend removal. Enlarged prostate gland is also seen with mass effect upon the base of the urinary bladder. Severe right hydronephrosis. Similar findings were seen on prior CT examination on 06/20/2018 1.4 x 1.3 cm left renal cyst with internal echoes and a septation. Short-term follow-up surveillance exam with CT with IV contrast is suggested. Echogenic renal cortices which may be due to underlying medical renal disease Severe urinary bladder wall thickening which may be due to underlying infectious or inflammatory process or chronic bladder outlet obstruction from a prominent prostate gland. Debris within the urinary bladder.
[2018-07-20] MEDS: D5-0.45NS 1,000 ML IV SCH (11:01)
--- NOTE | 2018-07-20 16:47 | Internal Medicine Prog Note ---
Internal Medicine Subjective - Subjective Service Date: 07/20/18 Patient is:: awake, in bed, confused, other (pt admitted with fever and leakage of urinary cath) Per staff patient has:: no adverse event, confused Internal Medicine Objective - Results Result Diagrams: 07/19/18 06:20 07/19/18 06:20 Recent Labs: Laboratory Last Values WBC 8.5 Th/cmm (4.8-10.8) 07/19/18 06:20 RBC 3.81 Mil/cmm (3.80-5.80) 07/19/18 06:20 Hgb 10.7 gm/dL (12-16) L 07/19/18 06:20 Hct 32.7 % (41.0-60) L 07/19/18 06:20 MCV 85.9 fl (80-99) 07/19/18 06:20 MCH 28.1 pg (27.0-31.0) 07/19/18 06:20 MCHC Differential 32.7 pg (28.0-36.0) 07/19/18 06:20 RDW 17.7 % (11.5-20.0) 07/19/18 06:20 Plt Count 315 Th/cmm (150-400) 07/19/18 06:20 MPV 7.4 fl 07/19/18 06:20 Neutrophils % 54.8 % (40.0-80.0) 07/19/18 06:20 Lymphocytes % 27.3 % (20.0-50.0) 07/19/18 06:20 Monocytes % 7.8 % (2.0-10.0) 07/19/18 06:20 Eosinophils % 10.1 % (0.0-5.0) H 07/19/18 06:20 Basophils % 0.0 % (0.0-2.0) 07/19/18 06:20 PT 11.0 SECONDS (9.5-11.5) 07/16/18 14:00 INR 1.06 (0.5-1.4) 07/16/18 14:00 PTT (Actin FS) 22.3 SECONDS (26.0-38.0) L 07/16/18 14:00 Sodium 137 mEq/L (136-145) 07/19/18 06:20 Potassium 4.3 mEq/L (3.5-5.1) 07/19/18 06:20 Chloride 108 mEq/L (98-107) H 07/19/18 06:20 Carbon Dioxide 23.0 mEq/L (21.0-31.0) 07/19/18 06:20 Anion Gap 10.3 (7.0-16.0) 07/19/18 06:20 BUN 13 mg/dL (7-25) 07/19/18 06:20 Creatinine 1.0 mg/dL (0.7-1.3) 07/19/18 06:20 Est GFR ( Amer) TNP 07/19/18 06:20 Est GFR (Non-Af Amer) TNP 07/19/18 06:20 BUN/Creatinine Ratio 13.0 07/19/18 06:20 Glucose 83 mg/dL (70-105) 07/19/18 06:20 Whole Bld Lactic Acid 1.48 mmol/L (0.60-1.99) 07/16/18 14:00 Calcium 8.8 mg/dL (8.6-10.3) 07/19/18 06:20 Total Bilirubin 0.6 mg/dL (0.3-1.0) 07/19/18 06:20 AST 13 U/L (13-39) 07/19/18 06:20 ALT 10 U/L (7-52) 07/19/18 06:20 Alkaline Phosphatase 56 U/L (34-104) 07/19/18 06:20 Creatine Kinase 88 U/L (30-223) 07/16/18 14:00 Troponin I 0.01 ng/mL (0.01-0.05) 07/16/18 14:00 Total Protein 6.8 gm/dL (6.0-8.3) 07/19/18 06:20 Albumin 2.6 gm/dL (4.2-5.5) L 07/19/18 06:20 Globulin 4.2 gm/dL 07/19/18 06:20 Albumin/Globulin Ratio 0.6 (1.0-1.8) L 07/19/18 06:20 Lipase 19 U/L (11-82) 07/19/18 06:20 TSH 2.37 uIU/ml (0.34-5.60) 07/19/18 06:20 Urine Source MIDSTREAM 03/29/19 16:15 Urine Color YELLOW 07/16/18 16:15 Urine Clarity CLOUDY (CLEAR) 07/16/18 16:15 Urine pH 7.0 (4.6 - 8.0) 07/16/18 16:15 Ur Specific [place] 1.025 (1.005-1.030) 07/16/18 16:15 Urine Protein 100 mg/dL (NEGATIVE) H 07/16/18 16:15 Urine Glucose (UA) NEGATIVE mg/dL (NEGATIVE) 07/16/18 16:15 Urine Ketones NEGATIVE mg/dL (NEGATIVE) 07/16/18 16:15 Urine Blood LARGE (NEGATIVE) H 07/16/18 16:15 Urine Nitrate POSITIVE (NEGATIVE) H 07/16/18 16:15 Urine Bilirubin NEGATIVE (NEGATIVE) 07/16/18 16:15 Urine Urobilinogen 0.2 E.U./dL (0.2 - 1.0) 07/16/18 16:15 Ur Leukocyte Esterase LARGE (NEGATIVE) H 07/16/18 16:15 Urine RBC 50-100 /hpf (0-5) H 07/16/18 16:15 Urine WBC 25-50 /hpf (0-5) H 07/16/18 16:15 Ur Epithelial Cells FEW /lpf (FEW) 07/16/18 16:15 Urine Bacteria 4+ /hpf (NONE SEEN) H 07/16/18 16:15 Vancomycin Trough 9.1 ug/mL (5-10) 07/19/18 21:00 - Physical Exam Vitals and I&O: Vital Signs Temp 98.8 F 07/20/18 15:57 Pulse 82 07/20/18 15:57 Resp 19 07/20/18 15:57 BP 123/63 07/20/18 15:57 Pulse Ox 98 07/20/18 15:57 Intake & Output 07/19/18 07/20/18 07/20/18 18:59 06:59 18:59 Intake Total 8144 356 0064.667 Output Total 750 1350 550 Balance 1230 -1050 966.667 Weight (lbs) 128 lb 3.2 oz 128 lb 128 lb Intake: Intake, IV Amount 1100 100 596.667 D5-0.45NS 1,000 ml @ 50 1000 596.667 mls/hr IV .Q20H [facility] Rx#: [id number] Meropenem 500 mg In 100 100 Sodium Chloride 0.9% 100 ml @ 100 mls/hr IV Q12HR [facility] Rx#:[id number] Oral 880 200 920 Output: Urine 1350 550 Stool 750 Other: # Bowel Movements 0 2 2 Stool Characteristics Soft Weight Source Bedscale Bedscale Bedscale Active Medications: Current Medications Acetaminophen (Tylenol) 650 mg PO Q6H PRN PRN Reason: Pain or Fever >101 Stop: 09/15/18 21:18 Last Admin: 07/19/18 21:38 Dose: 650 mg Al Hydrox/Mg Hydrox/Simethicone (Maalox) 30 ml PO Q4H PRN PRN Reason: GI DISTRESS Stop: 09/15/18 14:55 Donepezil HCl (Aricept) 5 mg PO DAILY [facility] Stop: 09/16/18 08:59 Last Admin: 07/20/18 08:21 Dose: 5 mg Escitalopram Oxalate (Lexapro) 5 mg PO DAILY [facility]; Protocol Stop: 09/18/18 08:59 Last Admin: 07/20/18 08:21 Dose: 5 mg Finasteride (Proscar) 5 mg PO DAILY [facility]; Protocol Stop: 09/16/18 08:59 Last Admin: 07/20/18 08:21 Dose: 5 mg Heparin Sodium (Porcine) (Heparin) 5,000 units SUBQ Q12HR [facility] Stop: 09/15/18 20:59 Last Admin: 07/20/18 08:28 Dose: 5,000 units Dextrose/Sodium Chloride (D5-0.45ns) 1,000 mls @ 50 mls/hr IV .Q20H [facility] Stop: 09/15/18 21:20 Last Admin: 07/20/18 11:01 Dose: 50 mls/hr Meropenem 500 mg/ Sodium (Chloride) 100 mls @ 100 mls/hr IV Q12HR [facility] Stop: 09/16/18 00:00 Last Admin: 07/20/18 08:31 Dose: 100 mls/hr Vancomycin HCl 1 gm/ Sodium (Chloride) 250 mls @ 165 mls/hr IV Q24H [facility] Stop: 09/18/18 09:59 Last Admin: 07/20/18 09:04 Dose: 165 mls/hr Lactobacillus Rhamnosus (Culturelle 15b) 1 each PO BID [facility] Stop: 09/15/18 16:59 Last Admin: 07/20/18 08:21 Dose: 1 each Lorazepam (Ativan) 1 mg PO Q4HR PRN; Protocol PRN Reason: Agitation Stop: 09/16/18 22:21 Lorazepam (Ativan) 1 mg IM Q4HR PRN; Protocol PRN Reason: Agitation Stop: 09/16/18 22:28 Last Admin: 07/19/18 22:56 Dose: 1 mg Miscellaneous (Vte Chemical Prophylaxis Screen/ Admission) 1 ea MC PRN PRN PRN Reason: PROTOCOL Stop: 09/15/18 09:51 Miscellaneous (Vancomycin Iv Per Pharmacy) 1 ea MC DAILY [facility] Stop: 09/17/18 08:59 Mupirocin (Bactroban Oint) 1 appl NS BID [facility] Stop: 07/22/18 09:01 Last Admin: 07/20/18 08:21 Dose: 1 appl Tamsulosin HCl (Flomax) 0.4 mg PO HS [facility] Stop: 09/15/18 20:59 Last Admin: 07/19/18 21:38 Dose: 0.4 mg Vitamin D (Vitamin D3) 4,000 iu PO DAILY [facility] Stop: 09/16/18 08:59 Last Admin: 07/20/18 08:21 Dose: 4,000 iu General: weak, congested HEENT: NC/AT Neck: Supple Lungs: CTAB Cardiovascular: RRR, Normal S1, Normal S2 Abdomen: soft, non-tender Extremities: clear Neurological: no change - Procedures Procedures: Procedures Procedure Code Date DRAINAGE OF SCROTUM, OPEN APPROACH [id number] 06/20/18 INSPECTION OF BLADDER, ENDO [id number] 06/20/18 Internal Medicine Assmt/Plan - Assessment Assessment: Acute uti with e.coli esbl scrotum wound culture positive for e.coli esbl urethral fistula fever anemia hyponatremia htn malnutricion arthritis dementia bipolar - Plan Plan: continue ivabx as per id am labs wound care continue current plan of care Nutritional Asmnt/Malnutr-PDOC - Dietary Evaluation Malnutrition Findings (Please click <Entered> for more info): Nutritional Asmnt/Malnutrition Start: 07/17/18 13: 14 Text: Status: Complete Freq: Protocol: Document 07/17/18 13:14 CARISSA (Rec: 07/17/18 13:21 CARISSA UZIEL- [email or web address]) Nutritional Asmnt/Malnutrition Patient General Information Nutritional Screening High Risk Diagnosis UTI, Scrotal wound, urethral fistula Pertinent Medical Hx/Surgical Hx dementia, anxiety, depression, BPH, prostate surgery, CKD. Subjective Information High risk for BMI 18.4 ( underweight). Patient appears to be moderately malnourished and missing teeth. Current Diet Order/ Nutrition Support Pureed Patient / S.O Not Indicated Pertinent Medications abx Pertinent Labs (07/16) Na 134, albumin 3.3 Nutritional Hx/Data Height 5 ft 8 in Height (Calculated Centimeters) 172.7 Current Weight (lbs) 121 lb Weight (Calculated Kilograms) 54.9 Weight (Calculated Grams) 07623.7 [place] Body Weight 154 % [employer] Body Weight 78 Body Mass Index (BMI) 18.3 Recent Weight Change No Weight Status Underweight GI Symptoms GI Symptoms None Last BM none indicated since admission Difficult in: None Food Allergies No Cultural/Ethnic/Jewish Belief none indicated Usual diet at home unknown Skin Integrity/Comment: Carlos Scott, Intact, incision scrotum Estimated Nutritional Goals BEE in Kcals: Using Current wt Calories/Kcals/Kg 55kg CBW 30-35 kcal/kg Kcals Calculated ~1020-9860 kcal/day Protein: Using Current wt Protein g/k.2-1.5gm/kg Protein Calculated 65-80 gm/day Fluid: ml ~5311-5031 ml/day Nutritional Problem 1. Problem Problem Altered nutrition related lab values related to Etiology electrolyte imbalance aeb Signs/Symptoms: Na 134 Intervention/Recommendation Comments 1. Continue pureed diet as tolerated by patient. Provide assistance with all meals. Pureed diet comes with [employer] shake for added calories. Encourage intake. Expected Outcomes/Goals Expected Outcomes/Goals Oral intake >75% of meals, weight stable, nutrition related labs WNL F/U MR 4/2-4
--- NOTE | 2018-07-21 01:25 | Progress Notes ---
DATE: 07/20/2018 SUBJECTIVE: Case was discussed with staff of the patient, reviewed records. The patient is currently in no acute distress. He continues to ramble, unable to make a safe plan for self-care, isolating . He has UTI infection, scrotal wound. Dementia has improved. He is unpredictable, impulsive, needing redirection at times. Lexapro was initiated yesterday 5 mg daily that I discussed with Dr. Callejas and he agrees to it. Thank you very much for allowing me to participate in the care of this most interesting gentleman. JOB# [id number]
[2018-07-21] MEDS: D5-0.45NS 1,000 ML IV SCH (05:46)
[2018-07-21 05:58] LABS: % BASOPHILS 0.5 % (0.0-2.0); % EOSINOPHILS 12.9 % (0.0-5.0); % MONOCYTES 7.7 % (2.0-10.0); % NEUTROPHILS 45.9 % (40.0-80.0); EOSINOPHILE ABSOLUTE 0.9 Th/cmm (0.1-0.4); HEMATOCRIT 30.1 % (41.0-60); HEMOGLOBIN 9.9 gm/dL (12-16); LYMPHOCYTE ABSOLUTE 2.2 Th/cmm (1.5-3.0); MEAN CELL VOLUME 85.8 fl (80-99); MEAN CORPUSCULAR HEMOGLOBIN 28.3 pg (27.0-31.0); MEAN PLATELET VOLUME 7.2 fl; MONOCYTE ABSOLUTE 0.5 Th/cmm (0.3-1.0); NEUTROPHILE ABSOLUTE 3.1 Th/cmm (1.8-8.0); PLATELET COUNT 322 Th/cmm (150-400); RED BLOOD COUNT 3.51 Mil/cmm (3.80-5.80); RED CELL DISTRIBUTION WIDTH 17.6 % (11.5-20.0); WHITE BLOOD COUNT 6.7 Th/cmm (4.8-10.8)
[2018-07-21 06:09] LABS: INR 1.06 (0.5-1.4)
[2018-07-21 06:10] LABS: ANION GAP 10.9 (7.0-16.0); BUN - UREA NITROGEN 8 mg/dL (7-25); CALCIUM SERUM 8.7 mg/dL (8.6-10.3); CARBON DIOXIDE 20.8 mEq/L (21.0-31.0); CHLORIDE 110 mEq/L (98-107); CREATININE - SERUM 0.9 mg/dL (0.7-1.3); GLUCOSE 81 mg/dL (70-105); POTASSIUM SERUM 3.7 mEq/L (3.5-5.1); SODIUM SERUM 138 mEq/L (136-145)
[2018-07-21] MEDS: Meropenem 500 MG in Sodium Chloride 0.9% 100 ML IV SCH (08:04)
[2018-07-21] MEDS: Vitamin D3 2,000 IU SGL PO SCH (08:05)
[2018-07-21] MEDS: Escitalopram Oxalate 5 mg Tab PO SCH (08:06)
[2018-07-21] MEDS: Lactobacillus Rhamnosus GG 15 Billion CFU CAP.SPRINK PO SCH ×2 (08:06→16:17)
--- NOTE | 2018-07-21 08:57 | Internal Medicine Prog Note ---
Internal Medicine Subjective - Subjective Service Date: 07/21/18 Patient seen and examined:: chart reviewed Patient is:: awake, in bed, confused Per staff patient has:: no adverse event, confused Internal Medicine Objective - Results Result Diagrams: 07/21/18 05:50 07/21/18 05:50 Recent Labs: Laboratory Last Values WBC 6.7 Th/cmm (4.8-10.8) 07/21/18 05:50 RBC 3.51 Mil/cmm (3.80-5.80) L 07/21/18 05:50 Hgb 9.9 gm/dL (12-16) L 07/21/18 05:50 Hct 30.1 % (41.0-60) L 07/21/18 05:50 MCV 85.8 fl (80-99) 07/21/18 05:50 MCH 28.3 pg (27.0-31.0) 07/21/18 05:50 MCHC Differential 33.0 pg (28.0-36.0) 07/21/18 05:50 RDW 17.6 % (11.5-20.0) 07/21/18 05:50 Plt Count 322 Th/cmm (150-400) 07/21/18 05:50 MPV 7.2 fl 07/21/18 05:50 Neutrophils % 45.9 % (40.0-80.0) 07/21/18 05:50 Lymphocytes % 33.0 % (20.0-50.0) 07/21/18 05:50 Monocytes % 7.7 % (2.0-10.0) 07/21/18 05:50 Eosinophils % 12.9 % (0.0-5.0) H 07/21/18 05:50 Basophils % 0.5 % (0.0-2.0) 07/21/18 05:50 PT 11.0 SECONDS (9.5-11.5) 07/21/18 05:50 INR 1.06 (0.5-1.4) 07/21/18 05:50 PTT (Actin FS) 24.2 SECONDS (26.0-38.0) L 07/21/18 05:50 Sodium 138 mEq/L (136-145) 07/21/18 05:50 Potassium 3.7 mEq/L (3.5-5.1) 07/21/18 05:50 Chloride 110 mEq/L (98-107) H 07/21/18 05:50 Carbon Dioxide 20.8 mEq/L (21.0-31.0) L 07/21/18 05:50 Anion Gap 10.9 (7.0-16.0) 07/21/18 05:50 BUN 8 mg/dL (7-25) 07/21/18 05:50 Creatinine 0.9 mg/dL (0.7-1.3) 07/21/18 05:50 Est GFR ( Amer) TNP 07/21/18 05:50 Est GFR (Non-Af Amer) TNP 07/21/18 05:50 BUN/Creatinine Ratio 8.9 07/21/18 05:50 Glucose 81 mg/dL (70-105) 07/21/18 05:50 Whole Bld Lactic Acid 1.48 mmol/L (0.60-1.99) 07/16/18 14:00 Calcium 8.7 mg/dL (8.6-10.3) 07/21/18 05:50 Total Bilirubin 0.6 mg/dL (0.3-1.0) 07/19/18 06:20 AST 13 U/L (13-39) 07/19/18 06:20 ALT 10 U/L (7-52) 07/19/18 06:20 Alkaline Phosphatase 56 U/L (34-104) 07/19/18 06:20 Creatine Kinase 88 U/L (30-223) 07/16/18 14:00 Troponin I 0.01 ng/mL (0.01-0.05) 07/16/18 14:00 Total Protein 6.8 gm/dL (6.0-8.3) 07/19/18 06:20 Albumin 2.6 gm/dL (4.2-5.5) L 07/19/18 06:20 Globulin 4.2 gm/dL 07/19/18 06:20 Albumin/Globulin Ratio 0.6 (1.0-1.8) L 07/19/18 06:20 Lipase 19 U/L (11-82) 07/19/18 06:20 TSH 2.37 uIU/ml (0.34-5.60) 07/19/18 06:20 Urine Source MIDSTREAM 07/16/18 16:15 Urine Color YELLOW 07/16/18 16:15 Urine Clarity CLOUDY (CLEAR) 07/16/18 16:15 Urine pH 7.0 (4.6 - 8.0) 07/16/18 16:15 Ur Specific [place] 1.025 (1.005-1.030) 07/16/18 16:15 Urine Protein 100 mg/dL (NEGATIVE) H 07/16/18 16:15 Urine Glucose (UA) NEGATIVE mg/dL (NEGATIVE) 07/16/18 16:15 Urine Ketones NEGATIVE mg/dL (NEGATIVE) 07/16/18 16:15 Urine Blood LARGE (NEGATIVE) H 07/16/18 16:15 Urine Nitrate POSITIVE (NEGATIVE) H 07/16/18 16:15 Urine Bilirubin NEGATIVE (NEGATIVE) 07/16/18 16:15 Urine Urobilinogen 0.2 E.U./dL (0.2 - 1.0) 07/16/18 16:15 Ur Leukocyte Esterase LARGE (NEGATIVE) H 07/16/18 16:15 Urine RBC 50-100 /hpf (0-5) H 07/16/18 16:15 Urine WBC 25-50 /hpf (0-5) H 07/16/18 16:15 Ur Epithelial Cells FEW /lpf (FEW) 07/16/18 16:15 Urine Bacteria 4+ /hpf (NONE SEEN) H 07/16/18 16:15 Vancomycin Trough 9.1 ug/mL (5-10) 07/19/18 21:00 - Physical Exam Vitals and I&O: Vital Signs Temp 98.1 F 07/21/18 08:00 Pulse 74 07/21/18 08:00 Resp 19 07/21/18 08:00 BP 153/77 07/21/18 08:00 Pulse Ox 100 07/21/18 08:00 Intake & Output 07/20/18 07/21/18 07/21/18 18:59 06:59 18:59 Intake Total 8315.700 8839.5 100 Output Total 850 1350 Balance 182.584 7152.5 -1250 Weight (lbs) 58.06 kg 58.06 kg Intake: Intake, IV Amount 936.968 7614.5 D5-0.45NS 1,000 ml @ 50 596.667 937.5 mls/hr IV .Q20H [facility] Rx#: [id number] Meropenem 500 mg In 100 100 Sodium Chloride 0.9% 100 ml @ 100 mls/hr IV Q12HR [facility] Rx#:[id number] Oral 1120 100 Output: Urine 850 1350 Other: # Bowel Movements 0 1 Stool Characteristics Soft Soft Weight Source Bedscale Bedscale Active Medications: Current Medications Acetaminophen (Tylenol) 650 mg PO Q6H PRN PRN Reason: Pain or Fever >101 Stop: 09/15/18 21:18 Last Admin: 07/20/18 21:35 Dose: 650 mg Al Hydrox/Mg Hydrox/Simethicone (Maalox) 30 ml PO Q4H PRN PRN Reason: GI DISTRESS Stop: 09/15/18 14:55 Donepezil HCl (Aricept) 5 mg PO DAILY [facility] Stop: 09/16/18 08:59 Last Admin: 07/21/18 08:05 Dose: Not Given Escitalopram Oxalate (Lexapro) 5 mg PO DAILY [facility]; Protocol Stop: 09/18/18 08:59 Last Admin: 07/21/18 08:06 Dose: Not Given Finasteride (Proscar) 5 mg PO DAILY [facility]; Protocol Stop: 09/16/18 08:59 Last Admin: 07/21/18 08:06 Dose: Not Given Heparin Sodium (Porcine) (Heparin) 5,000 units SUBQ Q12HR [facility] Stop: 09/15/18 20:59 Last Admin: 07/21/18 08:06 Dose: Not Given Dextrose/Sodium Chloride (D5-0.45ns) 1,000 mls @ 50 mls/hr IV .Q20H [facility] Stop: 09/15/18 21:20 Last Admin: 07/21/18 05:46 Dose: 50 mls/hr Meropenem 500 mg/ Sodium (Chloride) 100 mls @ 100 mls/hr IV Q12HR [facility] Stop: 09/16/18 00:00 Last Admin: 07/21/18 08:04 Dose: 100 mls/hr Vancomycin HCl 1 gm/ Sodium (Chloride) 250 mls @ 165 mls/hr IV Q24H [facility] Stop: 09/18/18 09:59 Last Admin: 07/20/18 09:04 Dose: 165 mls/hr Lactobacillus Rhamnosus (Culturelle 15b) 1 each PO BID [facility] Stop: 09/15/18 16:59 Last Admin: 07/21/18 08:06 Dose: Not Given Lorazepam (Ativan) 1 mg PO Q4HR PRN; Protocol PRN Reason: Agitation Stop: 09/16/18 22:21 Last Admin: 07/20/18 21:35 Dose: 1 mg Lorazepam (Ativan) 1 mg IM Q4HR PRN; Protocol PRN Reason: Agitation Stop: 09/16/18 22:28 Last Admin: 07/19/18 22:56 Dose: 1 mg Miscellaneous (Vte Chemical Prophylaxis Screen/ Admission) 1 ea PRN PRN PRN Reason: PROTOCOL Stop: 09/15/18 09:51 Miscellaneous (Vancomycin Iv Per Pharmacy) 1 ea [facility] DAILY [facility] Stop: 09/17/18 08:59 Mupirocin (Bactroban Oint) 1 appl NS BID [facility] Stop: 07/22/18 09:01 Last Admin: 07/21/18 08:07 Dose: 1 appl Tamsulosin HCl (Flomax) 0.4 mg PO HS [facility] Stop: 09/15/18 20:59 Last Admin: 07/20/18 21:35 Dose: 0.4 mg Vitamin D (Vitamin D3) 4,000 iu PO DAILY [facility] Stop: 09/16/18 08:59 Last Admin: 07/21/18 08:05 Dose: Not Given General: weak, congested HEENT: NC/AT Neck: Supple Lungs: CTAB Cardiovascular: RRR, Normal S1, Normal S2 Abdomen: soft, non-tender Extremities: clear Neurological: no change - Procedures Procedures: Procedures Procedure Code Date DRAINAGE OF SCROTUM, OPEN APPROACH [id number] 06/20/18 INSPECTION OF BLADDER, ENDO [id number] 06/20/18 Internal Medicine Assmt/Plan - Assessment Assessment: uti scrotum wound urethral fistula fever anemia hyponatremia htn malnutricion arthritis dementia bipolar - Plan Plan: asper order sheet Nutritional Asmnt/Malnutr-PDOC - Dietary Evaluation Malnutrition Findings (Please click <Entered> for more info): Nutritional Asmnt/Malnutrition Start: 07/17/18 13: 14 Text: Status: Complete Freq: Protocol: Document 07/17/18 13:14 [email or web address] (Rec: 07/17/18 13:21 [email or web address] TRIPLETT- FNS1) Nutritional Asmnt/Malnutrition Patient General Information Nutritional Screening High Risk Diagnosis UTI, Scrotal wound, urethral fistula Pertinent Medical Hx/Surgical Hx dementia, anxiety, depression, BPH, prostate surgery, CKD. Subjective Information High risk for BMI 18.4 ( underweight). Patient appears to be moderately malnourished and missing teeth. Current Diet Order/ Nutrition Support Pureed Patient / S.O Not Indicated Pertinent Medications abx Pertinent Labs (07/16) Na 134, albumin 3.3 Nutritional Hx/Data Height 1.73 m Height (Calculated Centimeters) 172.7 Current Weight (lbs) 54.885 kg Weight (Calculated Kilograms) 54.9 Weight (Calculated Grams) 27796.7 [place] Body Weight 154 % [place] Body Weight 78 Body Mass Index (BMI) 18.3 Recent Weight Change No Weight Status Underweight GI Symptoms GI Symptoms None Last BM none indicated since admission Difficult in: None Food Allergies No Cultural/Ethnic/Anabaptist Belief none indicated Usual diet at home unknown Skin Integrity/Comment: Carlos 14, Intact, incision scrotum Estimated Nutritional Goals BEE in Kcals: Using Current wt Calories/Kcals/Kg 55kg CBW 30-35 kcal/kg Kcals Calculated ~7453-1622 kcal/day Protein: Using Current wt Protein g/k.2-1.5gm/kg Protein Calculated 65-80 gm/day Fluid: ml ~7684-5187 ml/day Nutritional Problem 1. Problem Problem Altered nutrition related lab values related to Etiology electrolyte imbalance aeb Signs/Symptoms: Na 134 Intervention/Recommendation Comments 1. Continue pureed diet as tolerated by patient. Provide assistance with all meals. Pureed diet comes with [employer] shake for added calories. Encourage intake. Expected Outcomes/Goals Expected Outcomes/Goals Oral intake >75% of meals, weight stable, nutrition related labs WNL F/U MR 4/2-4
[2018-07-21] MEDS ORDERED: fentaNYL Citrate 100 mcg/2mL Vial ONE (10:40)
[2018-07-21] MEDS ORDERED: Neostigmine 10mg/10mL Vial ONE (10:52)
[2018-07-21] MEDS ORDERED: Propofol **SURGERY USE ONLY** 20 ML IV ONE (10:52)
[2018-07-21] MEDS ORDERED: Triple Antibiotic 0.94 gm Pkt TP ONE (13:17)
--- NOTE | 2018-07-21 13:21 | Progress Notes ---
DATE: 07/21/2018 Case was discussed with staff of the patient, reviewed records. The patient continues to be rambling, unable to express himself or make safe plan for self-care. Continues to be confused. He is compliant with the medication with no side effects, no sedation, no nausea, initiating Lexapro 5 mg daily. The patient in followup with the psychiatrist upon discharge. Thank you very much for allowing me to participate in the care of this most interesting gentleman. JOB# [id number]
--- NOTE | 2018-07-21 13:40 | Operative Report ---
DATE OF SURGERY: 07/21/2018 PREOPERATIVE DIAGNOSES: Urethral fistula, status post abscess drained, but continued urine leak from the fistula. POSTOPERATIVE DIAGNOSES: Urethral fistula, status post abscess drained, but continued urine leak from the fistula. SURGEON: Ten Orr M.D.. NAME OF PROCEDURE: Suprapubic cystostomy by open incision under general anesthesia. INDICATIONS: The patient is a 78-year-old with the fistula that led to the abscess, which was drained a few weeks ago. It started to heal well, but the Connolly was changed and did not go back into the bladder due to the fistula and was outside the bladder with the potential problem of ongoing leak and recurrence of the abscess. A suprapubic diversion was recommended. The patient's family accepted it. FINDINGS: The bladder was opened by suprapubic incision and was identified and opened to place a catheter and a suprapubic diversion. The Connolly catheter, which was probably in the abscess cavity at the penoscrotal junction was removed and a new one was placed. At this time, it did go into the bladder and will hopefully act as a drain to the abscess cavity until it closes. After that, the Connolly can be removed, and the patient remained on the suprapubic diversion. Blood loss was less than 25 mL. There were no complications. DESCRIPTION OF PROCEDURE: The patient was brought to the operating room, prepped and draped in the dorsal lithotomy position after general anesthesia was induced, with the plans to do a cystoscopy is necessary to identify the bladder. A 4-inch long suprapubic incision was made in the midline, deepened down to subcutaneous tissue and the rectus fascia, followed by splitting of the muscles in the midline and exposing the retropubic area and the bladder by dissecting the peritoneum superiorly by blunt dissection. The bladder was exposed and identified with a small needle puncture. A small 1 cm incision was made between stay sutures, and the bladder was opened. A lot of clear urine was drained. I then put a new catheter in the penis after having removed the old one before the surgery began. The catheter did not go in the first time, but the second time entered the bladder, verified by the suprapubic opening into the bladder. It was then irrigated multiple times and left in this place by inflating the balloon. The suprapubic cystostomy was then used to put in a size 22 Connolly for diversion and the bladder opening was closed with a running 2-0 Vicryl and followed by a second layer of inverting sutures. The catheter was anchored with a Vicryl suture to the bladder and a [place] drain was laid around the retropubic space. The area was again irrigated with antibiotics and the incision closed with a 2-0 Vicryl for the fascia and karla for the skin. The suprapubic catheter and the Mehran drain were anchored with silk sutures to complete the procedure. The patient was returned to recovery in stable condition. BLOOD LOSS: Less than 25 mL. JOB# [id number]
== END 2018-07-21 20:19 | DRG 853 ==
LOC: ER 13:11 → TELE 19:50 → MSI 07-20 14:06
PROVIDERS: ADMIT Internal Medicine; ATTEND Internal Medicine
PROC: 0T9B00Z Drainage of Bladder with Drainage Device, Open Approach (ICD-10-PCS; principal; 2018-07-21)
DX: A41.9 Sepsis, unspecified organism (principal); R53.2 Functional quadriplegia; N39.0 Urinary tract infection, site not specified; E87.1 Hypo-osmolality and hyponatremia; E44.0 Moderate protein-calorie malnutrition; N36.0 Urethral fistula; Z68.1 Body mass index [BMI] 19.9 or less, adult; D64.9 Anemia, unspecified; I10 Essential (primary) hypertension; F03.90 Unspecified dementia, unspecified severity, without behavioral disturbance, psychotic disturbance, mood disturbance, and anxiety; M19.90 Unspecified osteoarthritis, unspecified site; R31.9 Hematuria, unspecified; N40.0 Benign prostatic hyperplasia without lower urinary tract symptoms; F29 Unspecified psychosis not due to a substance or known physiological condition; F31.9 Bipolar disorder, unspecified; N49.2 Inflammatory disorders of scrotum; E78.5 Hyperlipidemia, unspecified; B96.20 Unspecified Escherichia coli [E. coli] as the cause of diseases classified elsewhere; Z16.12 Extended spectrum beta lactamase (ESBL) resistance
CPT/HCPCS: 36415-UA; 71045-TC; 76770-TC; 80048-TC; 80053-TC; 80202-TC; 81001-TC; 82550-TC; 82948-90; 83605; 83690-TC; 84443-TC; 84484-TC; 85025-TC; 85610-TC; 85730-TC; 87070-90; 87086-90; 93005; 96372; A4217; J0696; J1644; J2060; J2185; J2405; J2543; J2704; J2710; J3010; J3370; J7030; X5716; X6258; Z7610